=== PATIENT | female | born 1955 | race Caucasian/White ===

== ENCOUNTER → 2017-10-30 09:20 | Outpatient (CLI) | payer OTHER, SELFPAY ==
[2017-10-30 10:41] LABS: Absolute Lymphocyte Count 1.66 X10^3/ul (0.83-4.51); Absolute Neutrophil Count 2.4 X10^3/uL (2.0-7.7); Basophil# 0.02 X10^3/uL; Basophil% 0.4 % (0-1); Eosinophil# 0.05 X10^3/uL; Eosinophils% 1.1 % (0-5); Hemoglobin 13.5 g/dl (12.0-15.0); Lymphocyte # 1.66 X10^3/ul (4.0); Lymphocyte % 36.2 % (19-41); Mean Corp Hgb Conc 33.8 g/gl (32-36); Mean Corpuscular Hgb 31.3 pg (27.0-32.0); Mean Corpuscular Volume 92.6 fL (81-99); Mean Platelet Vol. 10.7 fl (6.2-12.0); Monocyte# 0.46 X10^3/uL; Neutrophil # 2.39 X10^3/uL (2.7-7.7); Neutrophil % 52.3 % (47-70); Platelet Count 157 K/mm3 (150-450); RBC Distribution Width CV 12.6 % (11.6-14.6); RBC Distribution Width SD 42.1 fl (35.1-43.9); Red Blood Count 4.32 M/mm3 (4.2-5.4); White Blood Count 4.6 K/mm3 (4.4-11.0)
[2017-10-30 10:42] LABS: POSITIVE COUNT NO; POSITIVE DIFFERENTIAL NO; POSITIVE MORPHOLOGY NO
[2017-10-30 11:02] LABS: ALB/GLOB Ratio 1.3 RATIO (0.9-2.4); AST(SGOT) 20 U/L (15-37); Alanine Aminotransfer ALT/SGPT 24 U/L (13-56); Albumin, Serum 3.8 g/dL (3.2-5.0); Alkaline Phosphatase 77 U/L (45-117); Anion Gap 7 (5-15); BUN 14 mg/dL (7-18); BUN/Creat Ratio 22.1 RATIO (10-20); Calcium,Total 8.8 mg/dL (8.5-10.1); Chloride 108 mmol/L (98-107); Creatinine, Serum 0.63 mg/dL (0.55-1.02); EST Glomerular Filtration Rate 100 mL/min (>60); Est Glom Filt Rate - Afr Amer 121 mL/min (>60); Glucose 84 mg/dL (74-106); Potassium 3.7 mmol/L (3.5-5.1); Protein, Total 6.8 g/dL (6.4-8.2); Sodium Level 143 mmol/L (136-145)
== END ==
PROVIDERS: Family Provider Family Medicine; PCP Family Medicine; Visit Provider Internal Medicine Rheumatology
DX: M06.4 Inflammatory polyarthropathy (principal); M19.072 Primary osteoarthritis, left ankle and foot; I10 Essential (primary) hypertension; E78.5 Hyperlipidemia, unspecified; Z79.899 Other long term (current) drug therapy
CPT/HCPCS: 36415; 80053; 85025

== ENCOUNTER → 2018-01-28 15:41 | Outpatient (CLI) | payer MEDICARE, OTHER, SELFPAY ==
[2018-01-28 17:31] LABS: Absolute Lymphocyte Count 2.28 X10^3/ul (0.83-4.51); Absolute Neutrophil Count 3.4 X10^3/uL (2.0-7.7); Basophil# 0.01 X10^3/uL; Basophil% 0.2 % (0-1); Eosinophil# 0.05 X10^3/uL; Eosinophils% 0.8 % (0-5); Hematocrit 39.5 % (37-47); Hemoglobin 13.5 g/dl (12.0-15.0); Lymphocyte # 2.28 X10^3/ul (4.0); Lymphocyte % 36.8 % (19-41); Mean Corp Hgb Conc 34.2 g/gl (32-36); Mean Corpuscular Hgb 31.7 pg (27.0-32.0); Mean Corpuscular Volume 92.7 fL (81-99); Mean Platelet Vol. 10.7 fl (6.2-12.0); Monocyte% 8.1 % (0-10); Neutrophil # 3.36 X10^3/uL (2.7-7.7); Neutrophil % 54.1 % (47-70); Platelet Count 181 K/mm3 (150-450); RBC Distribution Width CV 12.8 % (11.6-14.6); RBC Distribution Width SD 42.6 fl (35.1-43.9); Red Blood Count 4.26 M/mm3 (4.2-5.4); White Blood Count 6.2 K/mm3 (4.4-11.0)
[2018-01-28 17:38] LABS: ALB/GLOB Ratio 1.2 RATIO (0.9-2.4); AST(SGOT) 19 U/L (15-37); Alanine Aminotransfer ALT/SGPT 25 U/L (13-56); Albumin, Serum 3.8 g/dL (3.2-5.0); Alkaline Phosphatase 77 U/L (45-117); Anion Gap 6 (5-15); BUN 12 mg/dL (7-18); BUN/Creat Ratio 17.5 RATIO (10-20); Calcium,Total 9.1 mg/dL (8.5-10.1); Chloride 107 mmol/L (98-107); Creatinine, Serum 0.69 mg/dL (0.55-1.02); EST Glomerular Filtration Rate 91 mL/min (>60); Est Glom Filt Rate - Afr Amer 110 mL/min (>60); Globulin 3.3 g/dL (2.2-4.2); Glucose 83 mg/dL (74-106); Potassium 3.2 mmol/L (3.5-5.1); Protein, Total 7.1 g/dL (6.4-8.2); Sodium Level 144 mmol/L (136-145)
[2018-01-28 17:40] LABS: POSITIVE COUNT NO; POSITIVE DIFFERENTIAL NO; POSITIVE MORPHOLOGY NO
== END ==
PROVIDERS: Family Provider Family Medicine; PCP Family Medicine; Visit Provider Internal Medicine Rheumatology
DX: M06.4 Inflammatory polyarthropathy (principal); M19.072 Primary osteoarthritis, left ankle and foot; I10 Essential (primary) hypertension; E78.5 Hyperlipidemia, unspecified; Z79.899 Other long term (current) drug therapy
CPT/HCPCS: 36415; 80053; 85025

== ENCOUNTER → 2018-04-13 10:22 | Outpatient (CLI) | payer MEDICARE, OTHER, SELFPAY ==
--- NOTE | 2018-04-13 10:25 | CT_ITS ---
Study: CT of the left lower extremity with contrast CLINICAL HISTORY: Lateral left lower leg mass Prior study: None. PROCEDURE: Multiple computed tomographic images of the left lower extremity were obtained at 2.5 mm intervals using contiguous 2.5 mm thick slices in axial projection. Coronal and sagittal reconstructions were obtained. Radiation dose: Total exam DLP: 798.94 FINDINGS: No soft tissue mass of the left lower leg was identified. Muscular fascial planes are preserved. Subcutaneous soft tissues are unremarkable. There is no evidence of hematoma or cystic lesion. The left tibia and fibula appear within normal limits. CT/Extremity Lower WITH Contrast IMPRESSION: No soft tissue mass was identified. If clinically indicated, MRI may be helpful for further evaluation. Electronically Signed: Shiraz Lilly MD at 20:12 EDT , Service support ,
[2018-04-13 10:35] LABS: CREATININE FINGERSTICK 0.6 mg/dL (0.55-1.02); EGFR FINGERSTICK > 60.0000 mL/min (>60)
== END ==
PROVIDERS: Family Provider Family Medicine; PCP Family Medicine; Referring Provider Family Medicine; Visit Provider Family Medicine
DX: R22.42 Localized swelling, mass and lump, left lower limb (principal)
CPT/HCPCS: 73701; Q9967

== ENCOUNTER → 2018-05-05 13:29 | Outpatient (CLI) | payer MEDICARE, OTHER, SELFPAY ==
[2018-05-05 14:19] LABS: Absolute Lymphocyte Count 1.95 X10^3/ul (0.83-4.51); Absolute Neutrophil Count 3.7 X10^3/uL (2.0-7.7); Basophil# 0.02 X10^3/uL; Basophil% 0.3 % (0-1); Eosinophil# 0.07 X10^3/uL; Eosinophils% 1.1 % (0-5); Hematocrit 41.7 % (37-47); Hemoglobin 14.7 g/dl (12.0-15.0); Lymphocyte # 1.95 X10^3/ul (4.0); Lymphocyte % 31.6 % (19-41); Mean Corp Hgb Conc 35.3 g/gl (32-36); Mean Corpuscular Hgb 32.5 pg (27.0-32.0); Mean Corpuscular Volume 92.3 fL (81-99); Mean Platelet Vol. 10.7 fl (6.2-12.0); Monocyte# 0.47 X10^3/uL; Monocyte% 7.6 % (0-10); Neutrophil # 3.65 X10^3/uL (2.7-7.7); Neutrophil % 59.2 % (47-70); Platelet Count 185 K/mm3 (150-450); RBC Distribution Width CV 12.3 % (11.6-14.6); RBC Distribution Width SD 40.7 fl (35.1-43.9); Red Blood Count 4.52 M/mm3 (4.2-5.4); White Blood Count 6.2 K/mm3 (4.4-11.0)
[2018-05-05 14:23] LABS: POSITIVE COUNT NO; POSITIVE DIFFERENTIAL NO; POSITIVE MORPHOLOGY NO
[2018-05-05 14:28] LABS: ALB/GLOB Ratio 1.1 RATIO (0.9-2.4); AST(SGOT) 19 U/L (15-37); Alanine Aminotransfer ALT/SGPT 25 U/L (13-56); Albumin, Serum 3.9 g/dL (3.2-5.0); Alkaline Phosphatase 75 U/L (45-117); Anion Gap 5 (5-15); BUN 11 mg/dL (7-18); BUN/Creat Ratio 17.2 RATIO (10-20); Calcium,Total 8.9 mg/dL (8.5-10.1); Chloride 104 mmol/L (98-107); Creatinine, Serum 0.64 mg/dL (0.55-1.02); EST Glomerular Filtration Rate 99 mL/min (>60); Est Glom Filt Rate - Afr Amer 120 mL/min (>60); Globulin 3.5 g/dL (2.2-4.2); Glucose 91 mg/dL (74-106); Potassium 3.4 mmol/L (3.5-5.1); Protein, Total 7.4 g/dL (6.4-8.2); Sodium Level 140 mmol/L (136-145)
== END ==
PROVIDERS: Family Provider Family Medicine; PCP Family Medicine; Referring Provider Internal Medicine Rheumatology; Visit Provider Internal Medicine Rheumatology
DX: M06.4 Inflammatory polyarthropathy (principal); M19.072 Primary osteoarthritis, left ankle and foot; I10 Essential (primary) hypertension; E78.5 Hyperlipidemia, unspecified; Z79.899 Other long term (current) drug therapy
CPT/HCPCS: 36415; 80053; 85025

== ENCOUNTER → 2018-08-05 15:37 | Outpatient (CLI) | payer MEDICARE, OTHER, SELFPAY ==
[2018-08-05 17:15] LABS: Absolute Lymphocyte Count 2.32 X10^3/ul (0.83-4.51); Absolute Neutrophil Count 3.2 X10^3/uL (2.0-7.7); Basophil# 0.02 X10^3/uL; Basophil% 0.3 % (0-1); Eosinophil# 0.05 X10^3/uL; Eosinophils% 0.8 % (0-5); Hemoglobin 13.8 g/dl (12.0-15.0); Lymphocyte # 2.32 X10^3/ul (4.0); Lymphocyte % 37.4 % (19-41); Mean Corp Hgb Conc 34.5 g/gl (32-36); Mean Corpuscular Volume 92.8 fL (81-99); Mean Platelet Vol. 10.8 fl (6.2-12.0); Monocyte# 0.62 X10^3/uL; Neutrophil % 51.5 % (47-70); POSITIVE COUNT NO; POSITIVE DIFFERENTIAL NO; POSITIVE MORPHOLOGY NO; Platelet Count 187 K/mm3 (150-450); RBC Distribution Width CV 12.3 % (11.6-14.6); RBC Distribution Width SD 41.3 fl (35.1-43.9); Red Blood Count 4.31 M/mm3 (4.2-5.4); White Blood Count 6.2 K/mm3 (4.4-11.0)
[2018-08-05 17:27] LABS: ALB/GLOB Ratio 1.2 RATIO (0.9-2.4); AST(SGOT) 18 U/L (15-37); Alanine Aminotransfer ALT/SGPT 21 U/L (13-56); Albumin, Serum 3.8 g/dL (3.2-5.0); Alkaline Phosphatase 77 U/L (45-117); Anion Gap 10 (5-15); BUN 16 mg/dL (7-18); BUN/Creat Ratio 16.5 RATIO (10-20); Calcium,Total 8.9 mg/dL (8.5-10.1); Chloride 106 mmol/L (98-107); Creatinine, Serum 0.97 mg/dL (0.55-1.02); EST Glomerular Filtration Rate 61 mL/min (>60); Est Glom Filt Rate - Afr Amer 74 mL/min (>60); Globulin 3.2 g/dL (2.2-4.2); Glucose 89 mg/dL (74-106); Potassium 3.5 mmol/L (3.5-5.1); Sodium Level 143 mmol/L (136-145)
== END ==
PROVIDERS: Family Provider Family Medicine; PCP Family Medicine; Referring Provider Internal Medicine Rheumatology; Visit Provider Internal Medicine Rheumatology
DX: M06.4 Inflammatory polyarthropathy (principal); M19.072 Primary osteoarthritis, left ankle and foot; I10 Essential (primary) hypertension; E78.5 Hyperlipidemia, unspecified; Z79.899 Other long term (current) drug therapy
CPT/HCPCS: 36415; 80053; 85025

== ENCOUNTER → 2018-11-04 13:51 | Outpatient (CLI) | payer MEDICARE, OTHER, SELFPAY ==
[2018-11-04 16:04] LABS: Absolute Neutrophil Count 3.6 X10^3/uL (2.0-7.7); Basophil# 0.02 X10^3/uL; Basophil% 0.3 % (0-1); Eosinophil# 0.05 X10^3/uL; Eosinophils% 0.8 % (0-5); Hematocrit 41.4 % (37-47); Hemoglobin 14.3 g/dl (12.0-15.0); Lymphocyte % 36.5 % (19-41); Mean Corp Hgb Conc 34.5 g/gl (32-36); Mean Corpuscular Hgb 32.1 pg (27.0-32.0); Mean Platelet Vol. 10.6 fl (6.2-12.0); Monocyte# 0.45 X10^3/uL; Monocyte% 6.8 % (0-10); Neutrophil # 3.64 X10^3/uL (2.7-7.7); Neutrophil % 55.4 % (47-70); Platelet Count 195 K/mm3 (150-450); RBC Distribution Width CV 12.9 % (11.6-14.6); RBC Distribution Width SD 43.4 fl (35.1-43.9); Red Blood Count 4.45 M/mm3 (4.2-5.4); White Blood Count 6.6 K/mm3 (4.4-11.0)
[2018-11-04 16:08] LABS: POSITIVE COUNT NO; POSITIVE DIFFERENTIAL NO; POSITIVE MORPHOLOGY NO
[2018-11-04 16:22] LABS: ALB/GLOB Ratio 1.2 RATIO (0.9-2.4); AST(SGOT) 21 U/L (15-37); Alanine Aminotransfer ALT/SGPT 31 U/L (13-56); Alkaline Phosphatase 84 U/L (45-117); Anion Gap 5 (5-15); BUN 13 mg/dL (7-18); BUN/Creat Ratio 16.5 RATIO (10-20); Calcium,Total 8.7 mg/dL (8.5-10.1); Chloride 107 mmol/L (98-107); Creatinine, Serum 0.79 mg/dL (0.55-1.02); EST Glomerular Filtration Rate 78 mL/min (>60); Est Glom Filt Rate - Afr Amer 94 mL/min (>60); Globulin 3.2 g/dL (2.2-4.2); Glucose 76 mg/dL (74-106); Potassium 3.3 mmol/L (3.5-5.1); Protein, Total 7.2 g/dL (6.4-8.2); Sodium Level 141 mmol/L (136-145)
== END ==
PROVIDERS: Family Provider Family Medicine; PCP Family Medicine; Referring Provider Internal Medicine Rheumatology; Visit Provider Internal Medicine Rheumatology
DX: M06.4 Inflammatory polyarthropathy (principal); M19.072 Primary osteoarthritis, left ankle and foot; I10 Essential (primary) hypertension; E78.5 Hyperlipidemia, unspecified; Z79.899 Other long term (current) drug therapy
CPT/HCPCS: 36415; 80053; 85025

== ENCOUNTER 2019-01-02 17:55 | Observation (INO) | payer MEDICARE, OTHER, SELFPAY ==
[2019-01-02] VITALS (12 sets, daily range): BP systolic 150–189; BP diastolic 72–107; PULSE 58–71; RESP 13–16; TEMP 36.6–36.7; O2SAT 98–100; BMI 26.6; BMI 27.6
--- NOTE | 2019-01-02 18:26 | CT_ITS ---
STUDY: CT BRAIN WITHOUT CONTRAST REASON FOR EXAM: Female, 63 years old. Confusion RADIATION DOSAGE (If Supplied By Facility): CTDIvol = ( 44.99 ) mGy, DLP = ( 863.60 ) mGycm TECHNIQUE: Transaxial CT imaging of the brain was performed without administration of intravenous contrast material. Individualized dose optimization techniques were used for this CT. COMPARISON: No relevant priors. FINDINGS: Normal soft tissue structures. Normal calvarium. There is mild ventricular asymmetry likely normal developmental variant. Mild periventricular white matter ischemic changes.. Normal basal ganglia and thalami. Normal brainstem. Normal cerebellum. Empty sella deformity likely of no significance There is no intracranial hemorrhage. There are no findings of an acute ischemic infarction. Small mucous retention cyst in left maxillary sinus. CT/Brain/Head without Contrast IMPRESSION: Mild periventricular white matter ischemic change. No evidence for acute bleed. If concern for acute infarct MRI recommended.. Electronically Signed: Enoc Li MD at 18:43 EDT , Service support ,
--- NOTE | 2019-01-02 18:27 | EKG12_ITS ---
Test Reason : Blood Pressure : / mmHG Vent. Rate : 063 BPM Atrial Rate : 063 BPM P-R Int : 134 ms QRS Dur : 092 ms QT Int : 426 ms P-R-T Axes : 033 032 060 degrees QTc Int : 435 ms Normal sinus rhythm Normal ECG Confirmed by MARCE ACEVES, ERUM ([id number]), film editor supervisor MARINO WETZEL ([id number]) on 01/04/2019 12:20:48 PM Referred By: KATI Confirmed By:ERUM ZHENG MD
[2019-01-02 18:46] LABS: Absolute Lymphocyte Count 3.21 X10^3/ul (0.83-4.51); Basophil# 0.02 X10^3/uL; Basophil% 0.3 % (0-1); Eosinophil# 0.06 X10^3/uL; Eosinophils% 0.8 % (0-5); Hematocrit 39.9 % (37-47); Hemoglobin 14.4 g/dl (12.0-15.0); Lymphocyte # 3.21 X10^3/ul (4.0); Lymphocyte % 40.6 % (19-41); Mean Corp Hgb Conc 36.1 g/gl (32-36); Mean Corpuscular Hgb 32.4 pg (27.0-32.0); Mean Corpuscular Volume 89.9 fL (81-99); Mean Platelet Vol. 10.9 fl (6.2-12.0); Monocyte# 0.61 X10^3/uL; Monocyte% 7.7 % (0-10); Neutrophil % 50.5 % (47-70); POSITIVE COUNT NO; POSITIVE DIFFERENTIAL NO; POSITIVE MORPHOLOGY NO; Platelet Count 185 K/mm3 (150-450); RBC Distribution Width CV 12.2 % (11.6-14.6); RBC Distribution Width SD 38.9 fl (35.1-43.9); Red Blood Count 4.44 M/mm3 (4.2-5.4); White Blood Count 7.9 K/mm3 (4.4-11.0)
[2019-01-02 18:51] LABS: Anion Gap 9 (5-15); BUN 12 mg/dL (7-18); BUN/Creat Ratio 14.3 RATIO (10-20); Calcium,Total 9.7 mg/dL (8.5-10.1); Chloride 106 mmol/L (98-107); Creatinine, Serum 0.84 mg/dL (0.55-1.02); EST Glomerular Filtration Rate 72 mL/min (>60); Est Glom Filt Rate - Afr Amer 87 mL/min (>60); Estimated Creatinine Clearance 64.93 ml/min; Glucose 100 mg/dL (74-106); Sodium Level 139 mmol/L (136-145)
[2019-01-02 19:20] LABS: International Normalized Ratio 1.1; Prothrombin Time (Protime)PT. 13.5 SECONDS (11.7-14.9)
[2019-01-02 19:21] LABS: Partial Thromboplast Time 25.2 Seconds (24.1-36.2)
--- NOTE | 2019-01-02 20:00 | ED.DCSUM_ITS ---
- ER Visit Summary Date of Service: 01/02/19 Chief Complaint: [Confusion] History of Present Illness: The patient is a 63 F [since the emergency department with complaint of amnesia that occurred starting around 440 4:55 PM tonight. The patient and her took their dog to the dough molder because he was sick and the dog ended up dying. About 15 minutes after his when the was noted to be confused and lost track of the entire day per . Patient denies any headache. She denies chest pain. Denies shortness of breath. Patient otherwise has no complaints and is not had symptoms like this before. Past medical history significant for hypertension, high cholesterol, cellulitis. Surgical history includes hysterectomy.] Physical Examination: [HEENT-PERRLA, EOMI. Cranial nerves II through XII grossly intact. TMs clear. Mucous membranes moist. No adenopathy. Cardiovascular-regular rate and rhythm without murmur or ectopy Lungs-clear to auscultation, chest wall stable without crepitus or subcu emphysema Abdomen-normoactive bowel sounds, soft, nontender, no rebound or rigidity, no peritoneal signs. Neuro yawm-gmrfvt-md-nose and agnn-ji-hcpz testing within normal limits, negative Romberg, negative , Fundi benign. NIH stroke scale was 0. Extremities-intact ?4, normal range of motion, normal pulses, atraumatic] Test Results: [CBC with differential is normal. Chemistries were unremarkable. Troponin less than 0.015. CT scan of the brain without contrast showed small vessel ischemic changes otherwise nothing acute.] Emergency Department Course and Treatment: [Patient case was discussed with neurologist on-call Dr. Torres requested we admit patient for further stroke work-up although this is possibly global amnesia related to stress.] Patient is not a thrombolytic candidate. Treatment Plan: [Admit for further work-up and evaluation.] Disposition: [Admit] Impression: [Effusion/amnesia-etiology uncertain] This note was generated with [employer] dictation software. It may contain incorrect words, spelling, and punctuation that were not noted in review of the chart prior to signing ED Disposition - Plan for ED Patient: Referrals: Fadumo Ruth MD [Primary Care Provider] -
--- NOTE | 2019-01-02 20:08 | PCM.HP.STD ---
Problem List (1) Amnesia, global, transient Status: Acute (2) HTN (hypertension) Status: Chronic (3) Dyslipidemia Status: Chronic (4) Cellulitis and abscess of foot Status: Inactive History of Present Illness Date of Admission: 01/02/19 Chief Complaint: forgetfulness The patient is a 63 year old F with a significant history of hypertension; hyperlipidemia who presented to the emergency department with forgetfulness that started about 2 hours prior to presentation. Associated with his symptoms is lightheadedness. Patient and her took their dog to the veterinary where their dog . After the dog and while at a veterinary's office patient's symptoms started. Patient kept asking repeatedly where she was. Emergency department doctor discussed the case with neurology who felt the patient should be observed overnight. Past Medical History Past Medical History (Chronic Problems): Chronic Problems HTN (hypertension) (Chronic) Dyslipidemia (Chronic) Allergies bacitracin [From Neosporin ([id number])] Allergy (Verified 01/11/15 09:01) Swelling bacitracin zinc [From Neosporin (rhn-[id number])] Allergy (Verified 01/11/15 09:01) Swelling clindamycin Allergy (Verified 01/11/15 09:01) Rash neomycin sulfate [From Neosporin ([id number])] Allergy (Verified 01/11/15 09:01) Swelling polymyxin B [From Neosporin ([id number])] Allergy (Verified 01/11/15 09:01) Swelling Home Medications: Ambulatory Orders Medication Instructions Recorded Simvastatin [Zocor] 20 mg PO QHS 01/11/15 Aspirin [Adult Low Dose Aspirin EC] 81 mg PO DAILY 01/02/19 Folic Acid 1 mg PO DAILY 01/02/19 Fosinopril Sodium 40 mg PO DAILY 01/02/19 Hydrochlorothiazide 12.5 mg PO DAILY 01/02/19 Methotrexate Sodium [Methotrexate] 15 mg PO WE 01/02/19 Vitamin B Complex 01/02/19 Surgical History: hysterectomy Lives: Spouse/ Significant Other Smoking Status: Never smoker Alcohol: None - *Family History Paternal History Items: Cancer - Pancreatic, Heart Disease - Arrhythmia, - - Rheumatoid arthritis Maternal History Items: Hypertension, Stroke Review of Systems Constitutional: Denies: Chills, Fever, Weight Change HEENT: Denies: Head Aches, Sinus Congestion, Sinus Drainage Cardiovascular: Reports: Light Headedness. Denies: Chest Pain, Palpitations Respiratory: Denies: Cough, Shortness of breath at rest, Sputum production Gastrointestinal: Denies: Abdominal Pain, Nausea, Vomiting Genitourinary: Denies: Dysuria Musculoskeletal: Denies: Joint Pain, Joint Tenderness Skin: Denies: Rash, Wounds Neurological: Denies: Numbness, Tingling, Focal weakness Psychiatric: Denies: Anxiety, Depression, Homicidal Ideations, Suicidal Ideations Hematologic/ Lymphatic: Denies: Easy Bruising, Easy Bleeding VTE Information - Inpt Only VTE Present on Admission: No VTE Mechan Device Prophylaxis: None VTE Pharm Prophylaxis ordered?: Yes Patient Problems: Active and Suspected Problems Amnesia, global, transient (Acute) - Physical Exam General: Alert, Cooperative, - - Oriented to the year but not to the month or the day HEENT: Atraumatic, PERRLA, EOMI, Normocephalic Neck: Supple, No JVD, Negative Carotid Bruits Lungs: Clear to auscultation, Normal air movement Cardiovascular: Regular rate, No murmurs Abdomen: Bowel Sounds Present, Soft, Non Tender Extremities: No edema, Capillary Refill Less than 3 Seconds Skin: No rashes, No breakdown Musculoskeletal: No Tenderness to Palpation of Joints or Extremities Neurological: Cranial nerves II-XII grossly intact, Motor Exam 5/5 strength throughout, - - Deep tendon reflexes 2/2 throughout. There was no dysmetria. Psych/Mental Status: Normal Affect, Appropriate Vital Signs Temp Pulse Resp BP Pulse Ox 97.9 F 62 15 183/75 H 99 01/02/19 17:56 01/02/19 19:27 01/02/19 19:27 01/02/19 19:27 01/02/19 19:27 Oxygen Delivery Method Room Air Weight: 77.111 kg Body Mass Index (BMI) 26.6 Finger Stick Blood Glucose 100 Laboratory Tests Past 24 Hrs 01/02/19 01/02/19 01/02/19 18:24 18:24 18:24 WBC 7.9 RBC 4.44 Hgb 14.4 Hct 39.9 MCV 89.9 MCH 32.4 H MCHC 36.1 H RDW 12.2 RDW Differential 38.9 Plt Count 185 MPV 10.9 Immature Gran % (Auto) 0.100 Neut % (Auto) 50.5 Lymph % (Auto) 40.6 [place] % (Auto) 7.7 Eos % (Auto) 0.8 Baso % (Auto) 0.3 Absolute Neuts (auto) 4.0 Absolute Lymphs (auto) 3.21 Total Counted Not Reportable PT Cancelled INR Cancelled APTT Cancelled Sodium 139 Potassium 4.0 Chloride 106 Carbon Dioxide 24.0 Anion Gap 9 BUN 12 Creatinine 0.84 Estim Creat Clear Calc 64.93 Est GFR (MDRD) Af Amer 87 Est GFR (MDRD) Non-Af 72 BUN/Creatinine Ratio 14.3 Glucose 100 Calcium 9.7 01/02/19 18:55 WBC RBC Hgb Hct MCV MCH MCHC RDW RDW Differential Plt Count MPV Immature Gran % (Auto) Neut % (Auto) Lymph % (Auto) [place] % (Auto) Eos % (Auto) Baso % (Auto) Absolute Neuts (auto) Absolute Lymphs (auto) Total Counted PT 13.5 INR 1.1 APTT 25.2 Sodium Potassium Chloride Carbon Dioxide Anion Gap BUN Creatinine Estim Creat Clear Calc Est GFR (MDRD) Af Amer Est GFR (MDRD) Non-Af BUN/Creatinine Ratio Glucose Calcium Assessment/Plan All Active Problems Amnesia, global, transient (Acute) The patient is a 63 year old F with a significant history of hypertension; hyperlipidemia who presented to the emergency department with forgetfulness and lightheadedness after losing a dark bath with retained of some of her memory while at the emergency department consistent with likely a transient global amnesia. Transient global amnesia Most likely from acute stress response. NINDS NIH Scale was 1 (patient did not know the month) CT of the head showed mild periventricular white matter ischemic change. No evidence of acute bleed. -Check Hba1c, Lipid level Physical therapy, occupational therapy to work with patient. N.p.o. until bedside swallow eval. Home statin continued Permissive hypertension. Control blood pressure with labetalol for systolic blood pressure of more than 220 or diastolic blood pressure of more than 120. -Permissive HTN for 24 hrs. MRI/MRA of head; brain; and neck. Echocardiogram ordered. Because CVA/TIA is the second likley diagnosis and it is not within 24 hours ASA was not ordered Hypertension On presentation her blood pressure was not within goal. Because of permissive hypertension we will hold ADITI inhibitors and hydrochlorothiazide that patient takes at home. Trend blood pressures Hyperlipidemia Check lipid level left Continue home Zocor. Rheumatoid arthritis Methotrexate with folic acid continued. DVT Prophylaxis Subcutaneous Lovenox Code Visit OBSV E&M: 28158 Initial observation care L3
--- NOTE | 2019-01-02 20:10 | ED.DCSUM_ITS ---
- ER Visit Summary Date of Service: 01/02/19 Chief Complaint: [Addendum to initial dictation] History of Present Illness: The patient is a 63 F [] Physical Examination: [] Test Results: [] Emergency Department Course and Treatment: [] Treatment Plan: [] Disposition: [] Impression: [Impression should read confusion/amnesia] This note was generated with [employer] dictation software. It may contain incorrect words, spelling, and punctuation that were not noted in review of the chart prior to signing ED Disposition - Plan for ED Patient: Referrals: Fadumo Ruth MD [Primary Care Provider] -
--- NOTE | 2019-01-02 21:08 | ECHOD_ITS ---
Reason For Study: TIA/CVA Procedure This was a 2D Doppler, Color Flow transthoracic echocardiogram. The study was technically difficult. Exam performed portable in patient room. Left Ventricle Normal LV size. Left ventricular systolic function is normal. The estimated ejection fraction is 65 %. Diastolic function is indeterminate. No regional wall motion abnormalities noted. Right Ventricle Normal RV size. Normal systolic function. Atria The left atrium is mildly enlarged. Normal right atrium. No doppler evidence for ASD. Bubble contrast study negative for right to left interatrial shunt. Mitral Valve There is moderate to severe mitral annular calcification. Extension of the mitral annular calcification onto the posterior mitral valve leaflet. Mild (1+) eccentric mitral valve insufficiency. Tricuspid Valve Normal tricuspid valve. Mild to moderate (1-2+) tricuspid valve insufficiency. Right ventricular systolic pressure estimated to be 32 mmHg. Aortic Valve Trisinus/trileaflet aortic valve. Mild focal aortic valve thickening. Pulmonic Valve The pulmonic valve is not well visualized. Great Vessels Normal sized aortic root. Calcified aortic root. Pericardium/Pleural No pericardial effusion. Medication Performed a rapid injection of agitated mix of 9 cc saline and 1cc air to assess for atrial septal defect. MMode/2D Measurements & Calculations LVIDd: 4.5 cm IVSd: 1.1 cm Ao root diam: 2.6 cm LVIDs: 2.9 cm LVPWd: 0.86 cm RVDd: 3.0 cm FS: 35.8 % LAV(MOD-bp): 73.5 ml LA A4 area: 23.2 cm2 LA dimension(2D): 3.5 cm LAV(MOD-bp) Indexed: 38.4 ml/m2 LAV(MOD-sp2): 72.2 ml LAV(MOD-sp4): 73.5 ml RA A4 area: 18.5 cm2 Time Measurements MV dec time: 0.24 sec Doppler Measurements & Calculations MV E max [place]: 90.7 cm/sec Lat Peak E' [place]: 8.6 cm/sec Med Peak E' [place]: 7.3 cm/sec MV A max [place]: 77.5 cm/sec E/E' lat: 10.6 E/E' med: 12.4 MV E/A: 1.2 Ao V2 max: 148.1 cm/sec LV V1 max: 103.6 cm/sec PA V2 max: 73.2 cm/sec Ao max P.8 mmHg LV V1 max P.7 mmHg TR max [place]: 244.2 cm/sec TR max P.9 mmHg Interpretation Summary The study was technically difficult. Left ventricular systolic function is normal. The estimated ejection fraction is 65 %. The left atrium is mildly enlarged. There is moderate to severe mitral annular calcification. Extension of the mitral annular calcification onto the posterior mitral valve leaflet. Mild (1+) eccentric mitral valve insufficiency. Mild to moderate (1-2+) tricuspid valve insufficiency. Mild focal aortic valve thickening. Calcified aortic root. Right ventricular systolic pressure estimated to be 32 mmHg. Diastolic function is indeterminate. Ordering Physician: Urbano Butler Referring Physician: Fadumo Ruth Performed By: Khushi Dolan, MARLO, RVT
[2019-01-02] MEDS: Atorvastatin Calcium 20 MG Tablet PO (22:17)
[2019-01-02] MEDS: Acetaminophen 325 MG Tablet 650 MG PO (22:17)
[2019-01-03] VITALS (8 sets, daily range): BP systolic 125–158; BP diastolic 58–77; PULSE 50–61; RESP 12–18; TEMP 36.4–36.8; O2SAT 97–99
[2019-01-03] MEDS: Acetaminophen 325 MG Tablet 650 MG PO (05:26)
[2019-01-03 06:37] LABS: Cholesterol 184 mg/dL (200); High Density Lipoprotein 55 mg/dL; Triglycerides 92 mg/dL; Very Low Density Lipoprotein 18 mg/dL (5-40)
[2019-01-03] MEDS: Folic Acid 1 MG Tablet 2 MG PO (08:09)
[2019-01-03] MEDS: Enoxaparin 40 MG/0.4 ML Syringe SC (08:09)
--- NOTE | 2019-01-03 08:30 | MRI_ITS ---
STUDY: MRI BRAIN WITHOUT CONTRAST REASON FOR EXAM: Female, 63 years old. Episode of confusion. Rule out stroke. TECHNIQUE: Standardized multiplanar fat and water weighted pulse sequences were obtained. COMPARISON: CT head without contrast 01/02/2019. FINDINGS: No restricted diffusion to suspect acute or subacute ischemic infarct. Normal size of the ventricles and extra-axial spaces for the patient's age. Punctate and nodular T2 FLAIR hyperintensity foci in the white matter of both cerebral hemispheres are presumably chronic white matter ischemic changes. No midline shift and no mass effects. Normal bilateral basal ganglia. Normal thalami. There is no extra-axial fluid accumulation. Normal flow voids within the major intracranial circulation suggesting patency by spin echo criteria. Normal sella turcica, pituitary gland, infundibular stalk, optic chiasm and hypothalamus. Normal tectal plate and pineal gland. Normal midbrain, avtar and medulla. Normal cerebellum. Normal basal cisterns. Normal bilateral temporal bones. Normal bilateral internal auditory canals. No demonstrated orbital abnormality, within the constraints of a routine brain study. Normal visualized paranasal sinuses. Normal calvarium and skull base. Normal visualized soft tissue structures. Normal visualized upper cervical spine. MRI/Brain without Contrast IMPRESSION: 1. No MRI evidence of acute or subacute ischemic infarct. 2. No MRI evidence of remote cortical-based ischemic infarct or old lacunar infarcts. 3. Chronic white matter ischemic changes in both cerebral hemispheres. Electronically Signed: George Baptiste MD at 11:01 EDT , Service support ,
--- NOTE | 2019-01-03 08:30 | MRI_ITS ---
STUDY: MRA OF THE HEAD WITHOUT CONTRAST REASON FOR EXAM: Female, 63 years old. Episode of confusion. Rule out stroke. TECHNIQUE: 3-D jxse-jy-qziegn (TOF) imaging was performed with MIPs. The study was performed unenhanced. COMPARISON: None. FINDINGS: Normal bilateral petrous carotid arteries. Normal right cavernous carotid artery with a normal supraclinoid bifurcation. Normal left cavernous carotid artery with a normal supraclinoid bifurcation. Normal right A1 segment of the anterior cerebral artery. Normal left A1 segment of the anterior cerebral artery. Normal intact anterior communicating artery (ACOM). Normal bilateral A2 segments of the anterior cerebral arteries. Normal right M1 and M2 segments of the middle cerebral arteries, with a normal M1 bifurcation. Normal left M1 and M2 segments of the middle cerebral arteries, with a normal M1 bifurcation. No visible right posterior communicating artery (PCOM). origin of the left QUALITY AUDIT REPRESENTATIVE off the left internal carotid artery rather than a widely patent left posterior communicating artery. This accounts for the relatively absent left P1 segment. Normal bilateral vertebral arteries. Normal basilar artery with a normal basilar bifurcation. The visualized bilateral superior cerebellar (SCA) arteries are normal. Normal right P1, bilateral P2 and visualized P3 segments of the posterior cerebral arteries. There is no demonstrated aneurysm of the [place]. There is no major vessel occlusion or hemodynamically significant stenosis. MRI/MRA Head ONLY without Contrast IMPRESSION: Normal MRA of the head Electronically Signed: George Baptiste MD at 11:03 EDT , Service support ,
--- NOTE | 2019-01-03 08:30 | MRI_ITS ---
STUDY: MRA NECK WITH AND WITHOUT CONTRAST REASON FOR EXAM: Female, 63 years old. Episode and confusion. Rule out stroke. TECHNIQUE: 3-D udqd-yr-euxdmk (TOF) imaging was performed in an 1.5 T MRI scanner. 15 IV Dotarem was administered for the contrast enhanced images. COMPARISON: None. FINDINGS: RIGHT CAROTID ARTERIES: Normal right common carotid artery (CCA). Normal right internal carotid bulb. Normal origin of the right internal carotid (ICA) artery without a hemodynamically significant stenosis. Normal visualized cervical portion of the right internal carotid artery. Normal origin of the right external carotid artery (ECA). LEFT CAROTID ARTERIES: Normal left common carotid artery (CCA). Normal left internal carotid bulb. Normal origin of the left internal carotid (ICA) artery without a hemodynamically significant stenosis. Normal visualized cervical portion of the left internal carotid artery. Normal origin of the left external carotid artery (ECA). VERTEBRAL ARTERIES: Normal antegrade flow within the bilateral vertebral artery without a hemodynamically significant stenosis. AORTIC ARCH: Widely patent aortic arch and origins of the great vessels. MRI/MRA Neck WITH and W/O Contrast IMPRESSION: 1. Normal MRA of both carotid arteries and vertebral arteries. 2. Normal aortic arch and origins of the great vessels. Electronically Signed: George Baptiste MD at 11:05 EDT , Service support ,
--- NOTE | 2019-01-03 09:04 | PCM.PROGNOTE ---
Subjective: The patient is a 63-year-old female with a past medical history of hypertension and hyperlipidemia who presented to the ED at [facility] on 01/02/2019 complaining of forgetfulness that started 2 hours prior to presentation. she and her had taken their dog to the vet and the dog . Sx started after the dog . Vital signs at presentation to the emergency department were temperature 97.9, pulse rate 71, blood pressure 189/86, respiratory rate 15 and she was 100% saturated on room air. CBC was unremarkable. BMP was unremarkable. A noncontrasted CT brain showed mild periventricular white matter ischemic change with no evidence for acute bleed or acute infarct. She was admitted to a monitored bed on PCU and MRI was ordered for the following morning. Stroke protocol/neurochecks were ordered. - Physical Exam General: Alert, No apparent distress HEENT: Normocephalic Neck: Supple, No JVD, Trachea Midline Lungs: Clear to auscultation Cardiovascular: Regular rate, Regular Rhythm, Normal S1, Normal S2, No Gallop Abdomen: Bowel Sounds Present, Soft, Non Tender, Non-Distended Neurological: Cranial nerves II-XII grossly intact, Neuro grossly intact Psych/Mental Status: Normal Affect, Appropriate Vital Signs Temp Pulse Resp BP Pulse Ox 97.5 F L 54 L 16 125/61 H 97 01/03/19 05:15 01/03/19 07:00 01/03/19 05:15 01/03/19 05:15 01/03/19 07:23 Oxygen Delivery Method Room Air Weight: 176 lb 5.917 oz Body Mass Index (BMI) 27.6 Finger Stick Blood Glucose 100 Intake and Output for Last 24 Hours 01/01/19 01/02/19 01/03/19 23:59 23:59 23:59 Intake Total 240 / 240 240 / 240 Balance 240 / 240 240 / 240 Laboratory Tests Past 24 Hrs 01/02/19 01/02/19 01/02/19 18:24 18:24 18:24 WBC 7.9 RBC 4.44 Hgb 14.4 Hct 39.9 MCV 89.9 MCH 32.4 H MCHC 36.1 H RDW 12.2 RDW Differential 38.9 Plt Count 185 MPV 10.9 Immature Gran % (Auto) 0.100 Neut % (Auto) 50.5 Lymph % (Auto) 40.6 [place] % (Auto) 7.7 Eos % (Auto) 0.8 Baso % (Auto) 0.3 Absolute Neuts (auto) 4.0 Absolute Lymphs (auto) 3.21 Total Counted Not Reportable PT Cancelled INR Cancelled APTT Cancelled Sodium 139 Potassium 4.0 Chloride 106 Carbon Dioxide 24.0 Anion Gap 9 BUN 12 Creatinine 0.84 Estim Creat Clear Calc 64.93 Est GFR (MDRD) Af Amer 87 Est GFR (MDRD) Non-Af 72 BUN/Creatinine Ratio 14.3 Glucose 100 Calcium 9.7 Triglycerides Cholesterol LDL Cholesterol VLDL Cholesterol HDL Cholesterol 01/02/19 01/03/19 18:55 05:44 WBC RBC Hgb Hct MCV MCH MCHC RDW RDW Differential Plt Count MPV Immature Gran % (Auto) Neut % (Auto) Lymph % (Auto) [place] % (Auto) Eos % (Auto) Baso % (Auto) Absolute Neuts (auto) Absolute Lymphs (auto) Total Counted PT 13.5 INR 1.1 APTT 25.2 Sodium Potassium Chloride Carbon Dioxide Anion Gap BUN Creatinine Estim Creat Clear Calc Est GFR (MDRD) Af Amer Est GFR (MDRD) Non-Af BUN/Creatinine Ratio Glucose Calcium Triglycerides 92 Cholesterol 184 LDL Cholesterol 111 VLDL Cholesterol 18 HDL Cholesterol 55 Medical Necessity - Tobacco Use Smoking Status: Never smoker Tobacco Use: Non-smoker Assessment/Plan All Active Problems Amnesia, global, transient (Acute) Impressions 1. Suspected transient global amnesia - following a very traumatic event 2. Hypertension 3. Hyperlipidemia 4. Rheumatoid arthritis Discussed with Dr. Torres-we will obtain EEG and if this is unremarkable we will likely discharge home later today
--- NOTE | 2019-01-03 10:45 | PCM.CONS.GEN ---
Problem List (1) Amnesia, global, transient Status: Acute Reason for Consult Date of Consultation: 01/03/19 Reason for Consultation: Amnesia History of Present Illness: The patient is a 63 year old F with PMH HTN, HLD admitted with amnesia. Per patient she went shopping yesterday 01/02/19 in the morning, then came home and found her dog collapsed, later remembers taking him to the vet and the dog there but does not remember anything after that, per she initially lost the whole day, but later remembered some portions of the day but is still amnestic to about 2 to 21/2 hours when she went to the vet. Denies any PEREZ, focal motor weakness, witnessed seizures, sensory loss, vision disturbances, speech disturbances or dizziness. Per she kept repeating herself during the amnestic period. SBP on admission was 189 mmHg. [] Past Medical History Past Medical History (Chronic Problems): Chronic Problems HTN (hypertension) (Chronic) Dyslipidemia (Chronic) Allergies bacitracin [From Neosporin ([id number])] Allergy (Verified 01/11/15 09:01) Swelling bacitracin zinc [From Neosporin ([id number])] Allergy (Verified 01/11/15 09:01) Swelling clindamycin Allergy (Verified 01/11/15 09:01) Rash neomycin sulfate [From Neosporin ([id number])] Allergy (Verified 01/11/15 09:01) Swelling polymyxin B [From Neosporin ([id number]-[id number])] Allergy (Verified 01/11/15 09:01) Swelling Home Medications: Ambulatory Orders Medication Instructions Recorded Simvastatin [Zocor] 20 mg PO QHS 01/11/15 Aspirin [Adult Low Dose Aspirin EC] 81 mg PO DAILY 01/02/19 Folic Acid 1 mg PO DAILY 01/02/19 Fosinopril Sodium 40 mg PO DAILY 01/02/19 Hydrochlorothiazide 12.5 mg PO DAILY 01/02/19 Methotrexate Sodium [Methotrexate] 15 mg PO WE 01/02/19 Vitamin B Complex 01/02/19 Surgical History: hysterectomy Lives: Spouse/ Significant Other Smoking Status: Never smoker Tobacco Use: Non-smoker Alcohol: None - *Family History Maternal History Items: Hypertension, Stroke Paternal History Items: Cancer - Pancreatic, Heart Disease - Arrhythmia, - - Rheumatoid arthritis Review of Systems Constitutional: Reports: - - complete ROS negative except as documented in HPI Patient Problems: Active and Suspected Problems Amnesia, global, transient (Acute) - Physical Exam General: Alert HEENT: Normocephalic Neck: Supple Lungs: Normal air movement Cardiovascular: Normal S1, Normal S2 Abdomen: Bowel Sounds Present Extremities: No cyanosis Neurological: Cranial nerves II-XII grossly intact, Deep Tendon Reflexes 2+/4 and Symmetrical, Neuro grossly intact, Motor Exam 5/5 strength throughout, Muscle tone normal, Sensory exam intact to light touch and pain, Coordination normal Psych/Mental Status: Normal Affect Vital Signs Temp Pulse Resp BP Pulse Ox 98.2 F 51 L 12 158/71 H 99 01/03/19 09:15 01/03/19 09:15 01/03/19 09:15 01/03/19 09:15 01/03/19 09:15 Oxygen Delivery Method Room Air Weight: 80 kg Body Mass Index (BMI) 27.6 Finger Stick Blood Glucose 100 Intake and Output for Last 24 Hours 01/01/19 01/02/19 01/03/19 23:59 23:59 23:59 Intake Total 240 / 240 240 / 240 Balance 240 / 240 240 / 240 Laboratory Tests Past 24 Hrs 01/02/19 01/02/19 01/02/19 18:24 18:24 18:24 WBC 7.9 RBC 4.44 Hgb 14.4 Hct 39.9 MCV 89.9 MCH 32.4 H MCHC 36.1 H RDW 12.2 RDW Differential 38.9 Plt Count 185 MPV 10.9 Immature Gran % (Auto) 0.100 Neut % (Auto) 50.5 Lymph % (Auto) 40.6 [place] % (Auto) 7.7 Eos % (Auto) 0.8 Baso % (Auto) 0.3 Absolute Neuts (auto) 4.0 Absolute Lymphs (auto) 3.21 Total Counted Not Reportable PT Cancelled INR Cancelled APTT Cancelled Sodium 139 Potassium 4.0 Chloride 106 Carbon Dioxide 24.0 Anion Gap 9 BUN 12 Creatinine 0.84 Estim Creat Clear Calc 64.93 Est GFR (MDRD) Af Amer 87 Est GFR (MDRD) Non-Af 72 BUN/Creatinine Ratio 14.3 Glucose 100 Calcium 9.7 Triglycerides Cholesterol LDL Cholesterol VLDL Cholesterol HDL Cholesterol 01/02/19 01/03/19 18:55 05:44 WBC RBC Hgb Hct MCV MCH MCHC RDW RDW Differential Plt Count MPV Immature Gran % (Auto) Neut % (Auto) Lymph % (Auto) [place] % (Auto) Eos % (Auto) Baso % (Auto) Absolute Neuts (auto) Absolute Lymphs (auto) Total Counted PT 13.5 INR 1.1 APTT 25.2 Sodium Potassium Chloride Carbon Dioxide Anion Gap BUN Creatinine Estim Creat Clear Calc Est GFR (MDRD) Af Amer Est GFR (MDRD) Non-Af BUN/Creatinine Ratio Glucose Calcium Triglycerides 92 Cholesterol 184 LDL Cholesterol 111 VLDL Cholesterol 18 HDL Cholesterol 55 Assessment/Plan All Active Problems Amnesia, global, transient (Acute) The patient is a 63 year old F with PMH HTN, HLD admitted with amnesia. Per patient she went shopping yesterday 01/02/19 in the morning, then came home and found her dog collapsed, later remembers taking him to the vet and the dog there but does not remember anything after that, per she initially lost the whole day, but later remembered some portions of the day but is still amnestic to about 2 to 21/2 hours when she went to the vet. Denies any PEREZ, focal motor weakness, witnessed seizures, sensory loss, vision disturbances, speech disturbances or dizziness. Per she kept repeating herself during the amnestic period. SBP on admission was 189 mmHg [] Impression Likely TGA R/O Stroke vs seizure Plan -Await MRI brain/MRA head/neck -EEG -Better BP control, defer to hospitalist team -Goal BP < 130/80 mmHg -GI/DVT prophylaxis -Fall precautions -Follow up with Neurology in 6 weeks -Please call with questions if any -Thank you for allowing us to participate in patient's care and management Code Visit Inpatient E&M: 11485 Init Hosp L3
--- NOTE | 2019-01-03 14:56 | CHAPLAIN ---
Type of Pastoral Visit _x__ Initial Visit ___ Follow-up Visit ___ On-call Visit ___ General Patient Visit ___ Spiritual Assessment ___ Family Conference ___ Bereavement ___ Rapid Response ___ Code Blue ___ Other (describe below) Pastoral Care Referral From _x__ Patient ___ Family ___ Nurse ___ Physician ___ Bobbin Drier ___ Family Assessment Worker ___ Other (describe below) Sacrament/Intervention _x__ Active listening ___ Anointing ___ Mu-Ism ___ Bereavement ___ Communion ___ Jenny exploration ___ _x__ Life review _x__ Prayer ___ Reconciliation ___ Sacrament of Sick _x__ Supportive presence ___ Wedding ___ Other (describe below) Pastoral Comments
--- NOTE | 2019-01-03 15:18 | EEG ---
- Electroencephalogram Date of service 01/03/2019 History EEG is being done in this 63 yr F to rule out seizures EEG Description: This is an 18 channel EEG with 10-20 lead placement system. Bipolar montages, and Referential montages were reviewed. Photic stimulation and Hyperventilation were performed. The posterior dominant rhythm is 11 HZ synchronous, symmetric, reacting to eye opening and closing. Photo stimulation elicited normal driving response but no abnormal photoparoxysmal response, Hyperventilation did not elicit any abnormal photoparoxysmal response. Sleep was identified. There is no abnormal background slowing noted. There was no epileptiform discharges or electrographic seizures noted during this recording. EEG Interpretation This is a normal awake and asleep EEG. There is no epileptiform discharges or electrographic seizures noted during the record.
--- NOTE | 2019-01-03 17:49 | DCINST_ITS ---
- Discharge Diagnoses Current Active Problems: Current Active and Chronic Problems Amnesia, global, transient (Acute) You will use the following diet at home:: Cardiac Your food should be the consistency of: Regular Your liquids should be the consistency of: Regular/Thin Discharge Activity: Return to Normal Activity Call your doctor if you observe: Fever of 101 or Higher, Shortness of breath, Dizziness, Fainting spells, Chest pain, - - Unilateral numbness or weakness, slurred speech, inability to get your words out, facial droop, recurrent memory loss Additional Instructions: 1. The MRI of the brain showed no evidence of stroke. The angiogram of the head and neck showed no evidence of aneurysm, dissection or significant arterial disease/stenosis. The EEG was negative for seizure a ctivity. The ECHO showed that your heart squeezes normally and the ejection fraction is 65% which is normal. The left atrium was mildly enlarged and there was a lot of calcification around the mitral valve. Bottom line is you are good! I think that the trauma of losing your pet caused a transient decrease in circulation to a certain area of the brain called the hippocampus. I have printed off an article for you on Transient global amnesia to read. Allergies/Adverse Reactions: Allergies bacitracin [From Neosporin ([id number])] Allergy (Verified 01/11/15 09:01) Swelling bacitracin zinc [From Neosporin ([id number]-nhy-mitlu)] Allergy (Verified 01/11/15 09:01) Swelling clindamycin Allergy (Verified 01/11/15 09:01) Rash neomycin sulfate [From Neosporin ([id number]-gka-oyocy)] Allergy (Verified 01/11/15 09:01) Swelling polymyxin B [From Neosporin ([id number]-rhq-[id number])] Allergy (Verified 01/11/15 09:01) Swelling Medications to take at Discharge Simvastatin [Zocor] 20 mg PO QHS 01/11/15 Aspirin [Adult Low Dose Aspirin EC] 81 mg PO DAILY 01/02/19 Folic Acid 1 mg PO DAILY 01/02/19 Fosinopril Sodium 40 mg PO DAILY 01/02/19 Hydrochlorothiazide 12.5 mg PO DAILY 01/02/19 Methotrexate Sodium [Methotrexate] 15 mg PO WE 01/02/19 Vitamin B Complex 01/02/19 Primary Care Physician: Fadumo Ruth MD [Primary Care Provider] - Please follow up with your Primary Care Physician in: 3-5 days Test Results: Test results from this visit will be discussed in further detail at your follow- up appointment, if applicable. Proposed Discharge Date: 01/03/19
--- NOTE | 2019-01-03 18:15 | DS.PCM_ITS ---
Discharge Date and Diagnosis Date of Admission: 01/02/19 Date of Discharge: 01/03/19 - Primary Discharge Diagnosis Active and Suspected Problems Amnesia, global, transient (Acute) - Secondary Discharge Diagnosis Chronic Problems HTN (hypertension) (Chronic) Dyslipidemia (Chronic) mild left atrial enlargement Moderate to severe mitral annular calcification with +1 MR Mild to moderate TR Hospital Course and Treatment Imaging Results: Clinical Impression(s) from Imaging Studies Brain CT 01/02/19 18:26 IMPRESSION: Mild periventricular white matter ischemic change. No evidence for acute bleed. If concern for acute infarct MRI recommended.. Electronically Signed: Enoc Li MD at 18:43 EDT , Service support , Brain MRI 01/03/19 08:30 IMPRESSION: 1. No MRI evidence of acute or subacute ischemic infarct. 2. No MRI evidence of remote cortical-based ischemic infarct or old lacunar infarcts. 3. Chronic white matter ischemic changes in both cerebral hemispheres. Electronically Signed: George Baptiste MD at 11:01 EDT , Service support , Head MRA 01/03/19 08:30 IMPRESSION: Normal MRA of the head Electronically Signed: George Baptiste MD at 11:03 EDT , Service support , Neck MRA 01/03/19 08:30 IMPRESSION: 1. Normal MRA of both carotid arteries and vertebral arteries. 2. Normal aortic arch and origins of the great vessels. Electronically Signed: George Baptiste MD at 11:05 EDT , Service support , Laboratory Tests 01/03/19 01/02/19 01/02/19 Range/Units 05:44 18:55 18:24 WBC (4.4-11.0) K/mm3 RBC (4.2-5.4) M/mm3 Hgb (12.0-15.0) g/dl Hct (37-47) % MCV (81-99) fL MCH (27.0-32.0) pg MCHC (32-36) g/gl RDW (11.6-14.6) % RDW Differential (35.1-43.9) fl Plt Count (150-450) K/mm3 MPV (6.2-12.0) fl Immature Gran % (Auto) (0.0-0.9) % Neut % (Auto) (47-70) % Lymph % (Auto) (19-41) % [place] % (Auto) (0-10) % Eos % (Auto) (0-5) % Baso % (Auto) (0-1) % Absolute Neuts (auto) (2.0-7.7) X10^3/uL Absolute Lymphs (auto) (0.83-4.51) X10^3/ul Total Counted PT 13.5 INR 1.1 APTT 25.2 Sodium 139 (136-145) mmol/L Potassium 4.0 (3.5-5.1) mmol/L Chloride 106 (98-107) mmol/L Carbon Dioxide 24.0 (21.0-32.0) mmol/L Anion Gap 9 (5-15) BUN 12 (7-18) mg/dL Creatinine 0.84 (0.55-1.02) mg/dL Estim Creat Clear Calc 64.93 ml/min Est GFR (MDRD) Af Amer 87 (>60) mL/min Est GFR (MDRD) Non-Af 72 (>60) mL/min BUN/Creatinine Ratio 14.3 (10-20) RATIO Glucose 100 (74-106) mg/dL Calcium 9.7 (8.5-10.1) mg/dL Triglycerides 92 ( - 199) mg/dL Cholesterol 184 (200) mg/dL LDL Cholesterol 111 (0-130) mg/dL VLDL Cholesterol 18 (5-40) mg/dL HDL Cholesterol 55 (40 - ) mg/dL 01/02/19 01/02/19 Range/Units 18:24 18:24 WBC 7.9 (4.4-11.0) K/mm3 RBC 4.44 (4.2-5.4) M/mm3 Hgb 14.4 (12.0-15.0) g/dl Hct 39.9 (37-47) % MCV 89.9 (81-99) fL MCH 32.4 H (27.0-32.0) pg MCHC 36.1 H (32-36) g/gl RDW 12.2 (11.6-14.6) % RDW Differential 38.9 (35.1-43.9) fl Plt Count 185 (150-450) K/mm3 MPV 10.9 (6.2-12.0) fl Immature Gran % (Auto) 0.100 (0.0-0.9) % Neut % (Auto) 50.5 (47-70) % Lymph % (Auto) 40.6 (19-41) % [place] % (Auto) 7.7 (0-10) % Eos % (Auto) 0.8 (0-5) % Baso % (Auto) 0.3 (0-1) % Absolute Neuts (auto) 4.0 (2.0-7.7) X10^3/uL Absolute Lymphs (auto) 3.21 (0.83-4.51) X10^3/ul Total Counted Not Reportable PT Cancelled INR Cancelled APTT Cancelled Sodium (136-145) mmol/L Potassium (3.5-5.1) mmol/L Chloride (98-107) mmol/L Carbon Dioxide (21.0-32.0) mmol/L Anion Gap (5-15) BUN (7-18) mg/dL Creatinine (0.55-1.02) mg/dL Estim Creat Clear Calc ml/min Est GFR (MDRD) Af Amer (>60) mL/min Est GFR (MDRD) Non-Af (>60) mL/min BUN/Creatinine Ratio (10-20) RATIO Glucose (74-106) mg/dL Calcium (8.5-10.1) mg/dL Triglycerides ( - 199) mg/dL Cholesterol (200) mg/dL LDL Cholesterol (0-130) mg/dL VLDL Cholesterol (5-40) mg/dL HDL Cholesterol (40 - ) mg/dL Dr. Michel Torres-neurology Operations: None Procedures: Electroencephalogram - Normal awake and asleep EEG with no epileptiform discharges or electrographic seizures noted., Transthoracic echo - 65% left ventricular ejection fraction, moderate to severe mitral annular calcification with +1 MR, mild left atrial enlargement, 1-2+ TR Summary of Care Provided: The patient is a 63-year-old female with a past medical history of hypertension and hyperlipidemia who presented to the ED at [facility] on 01/02/2019 complaining of forgetfulness that started 2 hours prior to presentation. she and her had taken their dog to the vet and the dog . Sx started after the dog . Vital signs at presentation to the emergency department were temperature 97.9, pulse rate 71, blood pressure 189/86, respiratory rate 15 and she was 100% saturated on room air. CBC was unremarkable. BMP was unremarkable. A noncontrasted CT brain showed mild periventricular white matter ischemic change with no evidence for acute bleed or acute infarct. She was admitted to a monitored bed on PCU and MRI was ordered for the following morning. Stroke protocol/neurochecks were ordered. MRI of the brain was unremarkable. Normal MRA of the head and neck. Seen in consultation by Dr. Torres who recommended an EEG which was negative for epileptiform activity. The patient was discharged home. PE - see the PN from 01/03. Pt alert and oriented X 3 with no focal neurologic deficits. This note was generated with [employer] dictation software. It may contain incorrect words, spelling, and punctuation that were not noted in checking the note before signing. - Physical Exam Vital Signs Temp Pulse Resp BP Pulse Ox 98.0 F 55 L 16 151/77 H 98 01/03/19 15:17 01/03/19 15:17 01/03/19 15:17 01/03/19 15:17 01/03/19 15:17 Oxygen Delivery Method Room Air Weight: 176 lb 5.917 oz Body Mass Index (BMI) 27.6 Finger Stick Blood Glucose 100 Intake and Output for Last 24 Hours 01/01/19 01/02/19 01/03/19 23:59 23:59 23:59 Intake Total 240 / 240 470 / 470 Balance 240 / 240 470 / 470 Laboratory Tests Past 24 Hrs 01/02/19 01/02/19 01/02/19 18:24 18:24 18:24 WBC 7.9 RBC 4.44 Hgb 14.4 Hct 39.9 MCV 89.9 MCH 32.4 H MCHC 36.1 H RDW 12.2 RDW Differential 38.9 Plt Count 185 MPV 10.9 Immature Gran % (Auto) 0.100 Neut % (Auto) 50.5 Lymph % (Auto) 40.6 [place] % (Auto) 7.7 Eos % (Auto) 0.8 Baso % (Auto) 0.3 Absolute Neuts (auto) 4.0 Absolute Lymphs (auto) 3.21 Total Counted Not Reportable PT Cancelled INR Cancelled APTT Cancelled Sodium 139 Potassium 4.0 Chloride 106 Carbon Dioxide 24.0 Anion Gap 9 BUN 12 Creatinine 0.84 Estim Creat Clear Calc 64.93 Est GFR (MDRD) Af Amer 87 Est GFR (MDRD) Non-Af 72 BUN/Creatinine Ratio 14.3 Glucose 100 Calcium 9.7 Triglycerides Cholesterol LDL Cholesterol VLDL Cholesterol HDL Cholesterol 01/02/19 01/03/19 18:55 05:44 WBC RBC Hgb Hct MCV MCH MCHC RDW RDW Differential Plt Count MPV Immature Gran % (Auto) Neut % (Auto) Lymph % (Auto) [place] % (Auto) Eos % (Auto) Baso % (Auto) Absolute Neuts (auto) Absolute Lymphs (auto) Total Counted PT 13.5 INR 1.1 APTT 25.2 Sodium Potassium Chloride Carbon Dioxide Anion Gap BUN Creatinine Estim Creat Clear Calc Est GFR (MDRD) Af Amer Est GFR (MDRD) Non-Af BUN/Creatinine Ratio Glucose Calcium Triglycerides 92 Cholesterol 184 LDL Cholesterol 111 VLDL Cholesterol 18 HDL Cholesterol 55 Discharge Activity: Return to Normal Activity Call your doctor if you observe: Fever of 101 or Higher, Shortness of breath, Dizziness, Fainting spells, Chest pain, - - Unilateral numbness or weakness, slurred speech, inability to get your words out, facial droop, recurrent memory loss Home Medications: Medications to take at Discharge Simvastatin [Zocor] 20 mg PO QHS 01/11/15 Aspirin [Adult Low Dose Aspirin EC] 81 mg PO DAILY 01/02/19 Folic Acid 1 mg PO DAILY 01/02/19 Fosinopril Sodium 40 mg PO DAILY 01/02/19 Hydrochlorothiazide 12.5 mg PO DAILY 01/02/19 Methotrexate Sodium [Methotrexate] 15 mg PO WE 01/02/19 Vitamin B Complex 01/02/19 Primary Care Physician: Fadumo Ruth MD [Primary Care Provider] - Please follow up with your Primary Care Physician in: 3-5 days Disposition: Home Minutes spent on discharge:: 30 Medical Necessity - Tobacco Use Smoking Status: Never smoker Tobacco Use: Non-smoker Meaningful Use Info Meaningful Use Diagnoses (Choose all that apply): None applicable Code Visit OBSV E&M: 51243 Observation care discharge
== END 2019-01-03 17:58 | disposition home or self-care (01) ==
LOC: ED 18:56 → PCU 01-03 01:35
PROVIDERS: Admitting Provider Hospitalist; Emergency Provider Emergency Medicine; Family Provider Family Medicine; PCP Family Medicine; Visit Provider Internal Medicine
DX: G45.4 Transient global amnesia (principal); I10 Essential (primary) hypertension; R29.700 NIHSS score 0; E78.5 Hyperlipidemia, unspecified; Z79.899 Other long term (current) drug therapy; Z79.82 Long term (current) use of aspirin; M06.9 Rheumatoid arthritis, unspecified
CPT/HCPCS: 36415; 70450; 70544; 70549; 70551; 80048; 80061; 85025; 85610; 85730; 93005; 93306; 94762; 95819; 96372; 99218; 99285; A9575; A4216; G0378

== ENCOUNTER → 2019-02-09 10:11 | Outpatient (CLI) | payer MEDICARE, OTHER, SELFPAY ==
[2019-01-02 23:48] VITALS: BMI 27.6
[2019-02-09 12:17] LABS: Absolute Neutrophil Count 2.8 X10^3/uL (2.0-7.7); Basophil# 0.04 X10^3/uL; Basophil% 0.8 % (0-1); Eosinophil# 0.06 X10^3/uL; Eosinophils% 1.1 % (0-5); Hematocrit 40.6 % (37-47); Hemoglobin 14.1 g/dL (12.0-15.0); Mean Corp Hgb Conc 34.7 g/dL (32-36); Mean Corpuscular Hgb 32.3 pg (27.0-32.0); Mean Corpuscular Volume 92.9 fL (81-99); Mean Platelet Vol. 11.1 fl (6.2-12.0); Monocyte# 0.61 X10^3/uL; Monocyte% 11.5 % (0-10); NRBC Flagged by Analyzer 0 % (0-5); Neutrophil # 2.77 X10^3/uL (2.7-7.7); Neutrophil % 52.2 % (47-70); Platelet Count 179 K/mm3 (150-450); Red Blood Count 4.37 M/mm3 (4.2-5.4); White Blood Count 5.3 K/mm3 (4.4-11.0)
[2019-02-09 13:07] LABS: ALB/GLOB Ratio 1.2 RATIO (0.9-2.4); AST(SGOT) 18 U/L (15-37); Alanine Aminotransfer ALT/SGPT 31 U/L (13-56); Alkaline Phosphatase 84 U/L (45-117); Anion Gap 8 (5-15); BUN 12 mg/dL (7-18); BUN/Creat Ratio 17.2 RATIO (10-20); Calcium,Total 9.2 mg/dL (8.5-10.1); Chloride 105 mmol/L (98-107); EST Glomerular Filtration Rate 89 mL/min (>60); Est Glom Filt Rate - Afr Amer 108 mL/min (>60); Globulin 3.3 g/dL (2.2-4.2); Glucose 83 mg/dL (74-106); Potassium 3.6 mmol/L (3.5-5.1); Protein, Total 7.3 g/dL (6.4-8.2); Sodium Level 141 mmol/L (136-145)
== END ==
PROVIDERS: Family Provider Family Medicine; PCP Family Medicine; Referring Provider Internal Medicine Rheumatology; Visit Provider Internal Medicine Rheumatology
DX: M06.4 Inflammatory polyarthropathy (principal); M19.072 Primary osteoarthritis, left ankle and foot; I10 Essential (primary) hypertension; E78.5 Hyperlipidemia, unspecified; Z79.899 Other long term (current) drug therapy
CPT/HCPCS: 36415; 80053; 85025

== ENCOUNTER → 2019-03-17 08:16 | Outpatient (CLI) | payer MEDICARE, OTHER, SELFPAY ==
[2019-01-02 23:48] VITALS: BMI 27.6
[2019-03-17 10:58] LABS: AST(SGOT) 19 U/L (15-37); Alanine Aminotransfer ALT/SGPT 24 U/L (13-56); Cholesterol 167 mg/dL (200); High Density Lipoprotein 50 mg/dL; Triglycerides 97 mg/dL; Very Low Density Lipoprotein 19 mg/dL (5-40)
== END ==
PROVIDERS: Family Provider Family Medicine; PCP Family Medicine; Referring Provider Family Medicine; Visit Provider Family Medicine
DX: E78.00 Pure hypercholesterolemia, unspecified (principal)
CPT/HCPCS: 36415; 80061; 84450; 84460

== ENCOUNTER → 2019-03-21 11:15 | Outpatient (CLI) | payer MEDICARE, OTHER, SELFPAY ==
[2019-01-02 23:48] VITALS: BMI 27.6
--- NOTE | 2019-03-21 11:18 | RAD_ITS ---
STUDY: X-RAY - PELVIS AND LEFT HIP REASON FOR EXAM: Female, 64 years old. Left hip pain. TECHNIQUE: 3 views of the pelvis and hip. COMPARISON: None. FINDINGS: There is a non-specific bowel gas pattern. Normal visualized soft tissue structures. Tubal ligation clips are seen in the pelvis. Scattered phleboliths are noted. Normal bilateral iliac wings, sacroiliac joints and visualized sacrum. Normal bilateral superior and inferior pubic rami. Normal pubic symphysis. Normal bilateral ischial tuberosities. Normal visualized left femoral head. There is mild osteoarthritic spur formation of the lateral acetabular rim. There is mild articular joint space narrowing of the left hip. RAD/HIP, UNI W/ Pelvis 2-3 Views IMPRESSION: Mild degenerative changes left hip. There is no acute fracture or dislocation. Electronically Signed: Edward Perez DO at 16:55 EDT Tel [phone], Service support ,
--- NOTE | 2019-03-21 11:18 | RAD_ITS ---
STUDY: X-RAY - CERVICAL SPINE REASON FOR EXAM: Female, 64 years old. Cervical pain. TECHNIQUE: 5 view(s) of the cervical spine were obtained. COMPARISON: None FINDINGS: There are degenerative changes of the anterior atlantoaxial articulation. Normal odontoid process. Normal cervical lordosis. There is minimal endplate spondylosis and disc space narrowing most marked at C6-7. There is no evidence of acute fracture or loss of vertebral axial height. There is minimal neural foraminal narrowing bilaterally at C6-7. There is maintenance of normal alignment. The soft tissue structures are unremarkable. RAD/Cerv Spine 4 or 5 Views IMPRESSION: Degenerative changes of the cervical spine. Electronically Signed: Edward Perez DO at 16:57 EDT Tel [phone], Service support ,
== END ==
PROVIDERS: Family Provider Family Medicine; PCP Family Medicine; Referring Provider Family Medicine; Visit Provider Family Medicine
DX: M47.812 Spondylosis without myelopathy or radiculopathy, cervical region (principal); M16.12 Unilateral primary osteoarthritis, left hip
CPT/HCPCS: 72050; 73502

== ENCOUNTER → 2019-04-05 13:14 | Outpatient (CLI) | payer MEDICARE, OTHER, SELFPAY ==
[2019-01-02 23:48] VITALS: BMI 27.6
--- NOTE | 2019-04-05 13:17 | BI_ITS ---
MAMMOGRAPHY - BILATERAL SCREENING REASON FOR EXAM: Female, 64 years old. Routine annual screening examination. PERTINENT HISTORY: Non-contributory. TECHNIQUE: Digital bilateral breast russ (3D mammographic acquisition) in the CC and MLO projections. 2-D mediolateral oblique (MLO) and craniocaudad (CC) views of both breasts were obtained. CAD: Full Field Digital Mammography with Computer Added Detection was performed. COMPARISON: Comparison is made with prior study dated June 22, 2017 and June 02, 2016. FINDINGS: Breast Composition: There are scattered areas of fibroglandular density. There are no dominant masses or suspicious calcifications. Stable scattered calcifications bilaterally. No other significant abnormalities are identified. There has been no significant change since the prior study. BI/SCREEN MAMM (CAD) W/RUSS BILAT IMPRESSION: Stable bilateral screening mammogram. Yearly follow-up mammogram recommended. (A) ASSESSMENT CATEGORY: BIRADS Category 2: Benign. A letter regarding these results will be sent to the patient by the facility within 30 days. Approximately 10% of breast cancers are not detected by mammography. A normal mammogram should not delay biopsy of a clinically suspicious abnormality. [id number] Electronically Signed: Bryan Nelson, at 14:46 EDT , Service support ,
== END ==
PROVIDERS: Family Provider Family Medicine; PCP Family Medicine; Referring Provider Family Medicine; Visit Provider Family Medicine
DX: Z12.31 Encounter for screening mammogram for malignant neoplasm of breast (principal)
CPT/HCPCS: 77063; 77067

== ENCOUNTER → 2019-05-19 13:31 | Outpatient (CLI) | payer MEDICARE, OTHER, SELFPAY ==
[2019-01-02 23:48] VITALS: BMI 27.6
[2019-05-19 14:25] LABS: Absolute Lymphocyte Count 1.73 X10^3/uL (0.83-4.51); Absolute Neutrophil Count 3.7 X10^3/uL (2.0-7.7); Basophil# 0.05 X10^3/uL; Basophil% 0.8 % (0-1); Eosinophils% 1.7 % (0-5); Hematocrit 40.8 % (37-47); Hemoglobin 13.9 g/dL (12.0-15.0); Lymphocyte # 1.73 X10^3/ul (4.0); Lymphocyte % 28.6 % (19-41); Mean Corp Hgb Conc 34.1 g/dL (32-36); Mean Corpuscular Hgb 31.6 pg (27.0-32.0); Mean Corpuscular Volume 92.7 fL (81-99); Mean Platelet Vol. 11.1 fl (6.2-12.0); Monocyte# 0.48 X10^3/uL; Monocyte% 7.9 % (0-10); NRBC Flagged by Analyzer 0 % (0-5); Neutrophil # 3.67 X10^3/uL (2.7-7.7); Neutrophil % 60.8 % (47-70); Platelet Count 169 K/mm3 (150-450); RBC Distribution Width CV 11.5 % (11.6-14.6); RBC Distribution Width SD 38.9 fl (35.1-43.9)
[2019-05-19 14:55] LABS: ALB/GLOB Ratio 1.2 RATIO (0.9-2.4); AST(SGOT) 20 U/L (15-37); Alanine Aminotransfer ALT/SGPT 22 U/L (13-56); Albumin, Serum 3.7 g/dL (3.2-5.0); Alkaline Phosphatase 95 U/L (45-117); Anion Gap 8 (5-15); BUN 12 mg/dL (7-18); Calcium,Total 8.8 mg/dL (8.5-10.1); Chloride 106 mmol/L (98-107); EST Glomerular Filtration Rate 76 mL/min (>60); Est Glom Filt Rate - Afr Amer 92 mL/min (>60); Globulin 3.2 g/dL (2.2-4.2); Glucose 104 mg/dL (74-106); Potassium 2.9 mmol/L (3.5-5.1); Protein, Total 6.9 g/dL (6.4-8.2); Sodium Level 141 mmol/L (136-145)
== END ==
PROVIDERS: Family Provider Family Medicine; PCP Family Medicine; Referring Provider Internal Medicine Rheumatology; Visit Provider Internal Medicine Rheumatology
DX: M06.4 Inflammatory polyarthropathy (principal); M19.072 Primary osteoarthritis, left ankle and foot; I10 Essential (primary) hypertension; E78.5 Hyperlipidemia, unspecified; Z79.899 Other long term (current) drug therapy
CPT/HCPCS: 36415; 80053; 85025

== ENCOUNTER 2019-05-24 08:00 | Outpatient (RCR) | payer MEDICARE, OTHER, SELFPAY ==
[2019-01-02 23:48] VITALS: BMI 27.6
--- NOTE | 2019-05-09 10:44 | HP.PTEVAL ---
Patient's Visit Information JOVANNI PATTERSON is a 64 year old F referred to Physical Therapy by Fadumo Ruth MD with a diagnosis of L hip pain, cervical pain. Date of Evaluation: 04/05/19 Physical Therapist: Yanira Coffey DPT - Visit Plan Frequency: 2x /Week Duration: 4 Weeks Plan: Focus on general LE/Core s/s, improving posture/body mechanics, improving cervical ROM, and improving UT & levator scap flexibility. - Subjective Findings: 2009. attened PT for neck & L shoulder - has started to rturn recently. Last injection for neck pain was 2009. Neck has felt super-tight & all jammed up lately. Arm gives out at times w/ chaim shooting pain then turns to an ache & slowly goes away. Worst: -03/14 Aggravating: unsure, kaches all day (not enough to stop her from doing anything). Best: 1-2 Relieving factors: unsure, just a constant ache. Some past success w/ traction w/ previous therapy. has inversion table at home shes uses, but it doesn't seem to help. Pain runs from top of enck to upper traps. L hip pain started 2 months ago and has progressively gotten worse. No LATOYA, insidious onset - osteoarthritis. Pain at ant. hip. Describes pain as constant ache/burn. Worst; -01/11 Aggravating Factors: Sitting or laying on L side, stairs, sleeping on L side (has begun to sleep on back) Best: pain free times Relieving [id number]: adjusting position, moving. Does disrupt sleep if laying on L side. Arcadio radiating pain elsewhere, localized to ant. hip. Occupation: Retired Typical Activities: Walk 3-4 miles a day, yard work, helps neighbors packaging items. Two-Story house, 15-17 steps, laundry is on first floor. PMH/MEds: see chart, was hospitalized january 22 for transient global amnesia - 24 hour stay. Exercise program: just the walking 3-4 miles a day, silver sneakers in winter 1x in awhile. - Objective Posture: RS, FH - able to correct w/ v/c but could not maintain. Stairs: asc - reciprocal, no HR, no deviations. desc - lacked eccentric control, no HR. Gait: slight B toe-out. HR/TR: WNL w/ UE assist. SLS: 15 seconds. LLD: WNL. ROM: ankle WFL Knee WFL Hip WFL (pain at end range flexion/IR/ER/Abd.) Cervical: Flex/ext WFL, B SB 75% diminshed, B rot. 50% diminshed, ache w/ cervical testing in all planes. Strength: Ankle 5/5 Knee Ext 5/5 Flex 4/5 Hip 4-/5 t/o (pain w/ flexion, IR, & ER). Flexibility: Gastroc: Severe Hamstring: Mod., Quad: Mod. Muscle Length testing: Upper Trap: severe, Levator Scap: Severe. Sensation: WNL to Gross B touch. Special Tests: Cervical Distraction (+), Impingement (+), Ant. Labral Tear Hip (+), Post. Labral Tear Hip (-), Quadrant Test (+), SLump Test L (+), UNLTT (median/ulnar: (-) - Goals Goal 1:: Pt. will be I w/ HEP & progression. Goal Time Frame: 4-6 Weeks Goal 2:: Pt. will maintain proper postyure t/o tx. session to demo improved core strength. Goal Time Frame: 4-6 Weeks Goal 3:: Pt. will demo 5/5 strength in L LE Goal Time Frame: 4-6 Weeks Goal 4:: Pt. will report 0/10 pain for 1 week. Goal Time Frame: 4-6 Weeks - Rehabilitation Potential Physical Therapy Diagnosis: Presents w/ L hip pain, poor posture, decreased LE/core strength, decreased C/S ROM, impaired UE/LE flexibility which leads to poor tolerance of Adl's. Rehabilitation Potential: Good - Anticipated Interventions Patient/Client Instruction: Educate patient on: Benefits of Fitness Program Therapeutic Exercise to Include: Strength training, Endurance training, Body mechanics, Postural training, Passive ROM, Active ROM, Dynamic Lumbar Stabilization, Scapular Strength/Stabilization For the Purpose of:: To improve muscle performance and motor function Manual Therapy Techniques to Include: Soft tissue mobilization For the Purpose of:: To decrease pain, To increase ROM, To improve nutrient delivery to tissue TENS: Yes Cryotherapy (ice pack, ice massage): Yes Thermo therapy (hot pack): Yes Ultrasound (thermal/non thermal): Yes Thank you for the opportunity to evaluate your patient. For Medicare and Medicare HMO plans, please review the plan of care and approve it. It will need to be FAXED BACK to us at [phone] for Medicare purposes. For Medicare only, by signing this I certify the plan of care. Please let me know if there are questions or concerns regarding this plan of care. Physician Signature: Date:
--- NOTE | 2019-05-24 11:14 | HP.PTDCSUM ---
HP - PT D/C Summary It has been my pleasure to treat JOVANNI PATTERSON under orders from Fadumo Ruth MD, for the diagnosis of L hip pain, cervical pain for a total of 10 visit(s). Discharge Date: Please see the following information for a summary of their discharge status. - Subjective Subjective: Salvador reports that she is doing great- went on vacation without incidence. She always has a little twinge in her shoulder when she moves it wrong - Overall Improvement % Improvement: 90 - Objective Objective/Function: Posture: RS, FH - able to correct. Stairs: asc/desc - reciprocal, no HR, no deviations. Gait: slight B toe-out. HR/TR: WNL w/ UE assist. SLS: 15 seconds. LLD: WNL. ROM: ankle WFL Knee WFL Hip WFL no pain Cervical: Flex/ext WFL, B SB 25% diminshed, B rot. 25% diminshed due to tightness. Strength: Ankle 5/5 Knee Ext 5/5 Flex 4+/5 Hip 4+/5 t/o Flexibility: Gastroc: mild Hamstring: Mod., Quad: Mod. Muscle Length testing: Upper Trap: mod, Levator Scap: mod. Sensation: WNL to Gross B touch. - Goals Goal 1:: Pt. will be I w/ HEP & progression. Goal Progress: Goal Met Goal 2:: Pt. will maintain proper postyure t/o tx. session to demo improved core strength. Goal Progress: Progressing Goal 3:: Pt. will demo 5/5 strength in L LE Goal Progress: Progressing Goal 4:: Pt. will report 0/10 pain for 1 week. Goal Progress: Progressing - Plan Plan: Discharge to I HEP with [place] [facility] - D/C Information If there are questions or concerns regarding this patient's physical therapy, please feel free to call me at [phone]. Thank you for the referral of this patient. Sincerely, Yanira Coffey DPT
== END 2019-05-24 19:00 | disposition home or self-care (01) ==
LOC: PT 08:00
PROVIDERS: Family Provider Family Medicine; PCP Family Medicine; Referring Provider Family Medicine; Visit Provider Family Medicine
DX: M46.92 Unspecified inflammatory spondylopathy, cervical region (principal); M16.10 Unilateral primary osteoarthritis, unspecified hip; M25.552 Pain in left hip
CPT/HCPCS: 77063; 77067; 97110; 97140; 97161; 97164

== ENCOUNTER 2019-07-22 17:50 | Observation (INO) | payer MEDICARE, OTHER, SELFPAY ==
[2019-01-02 23:48] VITALS: BMI 27.6
[2019-07-22] VITALS (11 sets, daily range): BP systolic 141–184; BP diastolic 64–100; PULSE 53–67; RESP 14–18; TEMP 36.6–36.7; O2SAT 98–100; BMI 27.3; BMI 28.1
--- NOTE | 2019-07-22 18:15 | EKG12_ITS ---
Test Reason : HTN Blood Pressure : / mmHG Vent. Rate : 058 BPM Atrial Rate : 058 BPM P-R Int : 136 ms QRS Dur : 102 ms QT Int : 444 ms P-R-T Axes : -06 005 032 degrees QTc Int : 435 ms Sinus bradycardia Otherwise normal ECG Confirmed by AICHA ACEVES, JIGAR ([id number]), communications editor MARINO WETZEL ([id number]) on 07/25/2019 10:00:08 AM Referred By: ADRIANA Confirmed By:JIGAR HOLCOMB MD
--- NOTE | 2019-07-22 18:15 | CT_ITS ---
STUDY: CT BRAIN WITHOUT CONTRAST REASON FOR EXAM: Female, 64 years old. CVA, left arm numbness/tingling, hypertension RADIATION DOSAGE (If Supplied By Facility): CTDIvol = ( 44.99 ) mGy, DLP = ( 829.85 ) mGycm TECHNIQUE: Transaxial CT imaging of the brain was performed without administration of intravenous contrast material. Individualized dose optimization techniques were used for this CT. COMPARISON: January 02, 2019 and MRI of the brain dated January 03, 2019 FINDINGS: Normal soft tissue structures. There is asymmetry of the ventricles consistent with an anatomic variant. There are areas of decreased attenuation within the white matter tracts of the supratentorial brain, consistent with microvascular disease changes. Normal basal ganglia and thalami. Normal brainstem. Normal cerebellum. There is no intracranial hemorrhage. There are no findings of an acute ischemic infarction. Normal visualized paranasal sinuses. CT/Brain/Head without Contrast IMPRESSION: Small vessel ischemia. N.B. : The above information has been verbally conveyed by Caroline Macias MD to Denisha Camacho MD , , on 07/22/2019 18:40:08 (ET). Electronically Signed: Caroline Macias MD at 18:41 EST Tel , Service support ,
--- NOTE | 2019-07-22 18:17 | CT_ITS ---
We are attempting to reach an attending provider to discuss findings. An addendum with communication details will be sent when the communication is complete. STUDY: CTA HEAD AND NECK WITH CONTRAST REASON FOR EXAM: Female, 64 years old. CVA, left arm numbness/tingling, hypertension. RADIATION DOSAGE (If Supplied By Facility): CTDIvol = ( 23.36 ) mGy, DLP = ( 668.25 ) mGycm TECHNIQUE: CT angiography was performed with a multi-detector CT scanner. Data acquisition was obtained from the skull base through the vertex following intravenous administration of 100mL Isovue 370. MIP images were reconstructed from the axial data set. Post-processing of the angiographic images was performed, with multiplanar reformation and 3D reconstruction. Individualized dose optimization techniques were used for this CT. COMPARISON: MRA of the head and neck dated January 03, 2019 FINDINGS: Normal bilateral petrous carotid arteries. There is calcified plaque formation of the right cavernous carotid artery, without a cross-sectional luminal stenosis. There is calcified plaque formation of the left cavernous carotid artery, without a cross-sectional luminal stenosis. Normal right A1 segments of the anterior cerebral artery. Normal left A1 segments of the anterior cerebral artery. Normal intact anterior communicating artery (ACOM). Normal bilateral A2 segments of the anterior cerebral arteries. Normal right M1 and M2 segments of the middle cerebral arteries, with a normal M1 bifurcation. Normal left M1 and M2 segments of the middle cerebral arteries, with a normal M1 bifurcation. Normal right posterior communicating artery (PCOM). Normal left posterior communicating artery (PCOM). Normal bilateral vertebral arteries. Normal basilar artery with a normal basilar bifurcation. The visualized bilateral superior cerebellar (SCA) arteries are normal. Normal bilateral P1, P2 and visualized P3 segments of the posterior cerebral arteries. There is no demonstrated aneurysm of the [place] of [place]. There is no demonstrated abnormality of the visualized brain. AORTIC ARCH: There is atherosclerotic calcific plaque formation of the aortic arch and and left subclavian artery. Normal origins of the brachiocephalic, left common carotid, and left subclavian arteries. RIGHT CAROTID ARTERIES: There is atherosclerotic plaque formation of the common carotid artery, but without a hemodynamically significant stenosis. There is mild atherosclerotic plaque formation without significant narrowing of the right carotid bulb. There is mild atherosclerotic plaque formation of the origin of the right internal carotid artery with less than 50% cross sectional diameter stenosis. Normal visualized cervical portion of the right internal carotid artery. Normal origin of the right external carotid artery (ECA). LEFT CAROTID ARTERIES: There is atherosclerotic plaque formation of the common carotid artery, but without a hemodynamically significant stenosis. There is mild atherosclerotic plaque formation with minimal narrowing of the left carotid bulb. There is mild atherosclerotic plaque formation of the origin of the left internal carotid artery with less than 50% cross sectional diameter stenosis. Normal visualized cervical portion of the left internal carotid artery. Normal origin of the left external carotid artery (ECA). VERTEBRAL ARTERIES: Normal bilateral vertebral arteries. CT/CTA Head AND Neck W/ Contrast IMPRESSION: Atherosclerosis with no associated hemodynamically significant stenosis. Electronically Signed: Caroline Macias MD at 18:57 EST Tel , Service support ,
--- NOTE | 2019-07-22 18:22 | NURSING ---
[id number] STROKE ALERT CALLED
[2019-07-22 18:26] LABS: Absolute Lymphocyte Count 2.49 X10^3/uL (0.83-4.51); Absolute Neutrophil Count 2.6 X10^3/uL (2.0-7.7); Basophil# 0.02 X10^3/uL; Basophil% 0.3 % (0-1); Eosinophil# 0.06 X10^3/uL; Hematocrit 40.4 % (37-47); Hemoglobin 14.1 g/dL (12.0-15.0); Lymphocyte # 2.49 X10^3/ul (4.0); Lymphocyte % 42.3 % (19-41); Mean Corp Hgb Conc 34.9 g/dL (32-36); Mean Corpuscular Volume 91.8 fL (81-99); Mean Platelet Vol. 10.5 fl (6.2-12.0); Monocyte# 0.67 X10^3/uL; Monocyte% 11.4 % (0-10); NRBC Flagged by Analyzer 0 % (0-5); Neutrophil # 2.64 X10^3/uL (2.7-7.7); Neutrophil % 44.8 % (47-70); Platelet Count 180 K/mm3 (150-450); RBC Distribution Width SD 39.8 fl (35.1-43.9); White Blood Count 5.9 K/mm3 (4.4-11.0)
--- NOTE | 2019-07-22 18:33 | NURSING ---
CALL PLACED TO [facility]; PHONE GIVEN TO DR GUTIERREZ [facility] NEUROLOGIST WISHED TO SPEAK TO HIM DIRECTLY.
[2019-07-22 18:37] LABS: Partial Thromboplast Time 24.7 Seconds (24.1-36.2)
[2019-07-22 18:40] LABS: Bedside Glucose 99 mg/dL (70-110)
[2019-07-22] MEDS: 0.9% Normal Saline 1,000 ML 100 ML IV ×2 (18:42→21:47)
[2019-07-22 18:47] LABS: Anion Gap 4 (5-15); BUN 17 mg/dL (7-18); BUN/Creat Ratio 17.1 RATIO (10-20); Calcium,Total 9.3 mg/dL (8.5-10.1); Chloride 106 mmol/L (98-107); EST Glomerular Filtration Rate 59 mL/min (>60); Est Glom Filt Rate - Afr Amer 72 mL/min (>60); Estimated Creatinine Clearance 53.81 ml/min; Glucose 100 mg/dL (74-106); Potassium 3.3 mmol/L (3.5-5.1); Sodium Level 140 mmol/L (136-145)
--- NOTE | 2019-07-22 18:57 | RAD_ITS ---
STUDY: X-RAY CHEST REASON FOR EXAM: Female, 64 years old. HYPERTENSION TECHNIQUE: Single frontal view of the chest. COMPARISON: January 18, 2015 FINDINGS: There is no new focal consolidation. There are stable left basilar streaky opacities may be secondary to underlying scarring. Normal size heart. Normal mediastinum and bryant. Normal visualized pulmonary arteries. Normal visualized aortic arch and descending thoracic aorta. Normal visualized thoracic spine. Normal visualized ribs, clavicles, and shoulders. There is no demonstrated abnormality of the visualized soft tissue structures of the upper abdomen. RAD/Chest 1 View IMPRESSION: No acute cardiopulmonary process. Electronically Signed: Caroline Macias MD at 19:35 EST Tel , Service support ,
--- NOTE | 2019-07-22 19:11 | HP.PCM_ITS ---
Problem List (1) TIA (transient ischemic attack) Status: Acute (2) Rheumatoid arthritis Status: Chronic Qualifiers: Rheumatoid arthritis location: unspecified site Rheumatoid factor presence: unspecified presence Qualified Code(s): M06.9 - Rheumatoid arthritis, unspecified (3) Amnesia, global, transient Status: Chronic (4) HTN (hypertension) Status: Chronic Qualifiers: Hypertension type: essential hypertension Qualified Code(s): I10 - Essential (primary) hypertension (5) Dyslipidemia Status: Chronic History of Present Illness Date of Admission: 07/22/19 Chief Complaint: LUE paresthesias The patient is a 64 y/o F w/ PMHx: HTN, HLD, Rheumatoid arthritis, Hx Prior Global amnesia which lasted 4 hours with unremarkable neurological work-up felt secondary to HTN who presents to the [facility] ED on 07/22/19 with history of LUE paresthesias, started at ~ 1 pm specifically located in the L elbow with eventual inclusion of the forearm and hand with no additional neurological findings with elevated BP at that time, SBP in 190s, noted to be compliant with medications. CVA call w/ Neurology recommendation CTA head and neck, which was unremarkable with recommended admission for TIA/CVA evaluation. Notes paresthesias resolving while in the ED, now only in the fingertips. Patient does note that on 10 July she did have injection in her shoulder and she has ongoing issues with a spur but had no neurological paresthesia type symptoms following this until current presentation. NIH stroke scale in the ED 1 for paresthesias work-up in the ED included T 98, heart rate 67, BP initially 184/100 with improvement to 142/83, respiratory rate 18, 99% on room air, CBC with WC 5.9, hemoglobin 14.1, platelet 180 without marked evidence of left shift, increased lymphocytes and monocytes, unremarkable coags, BMP with potassium 3.3 otherwise unremarkable, troponin less than 0.015, CT brain with no acute intracranial findings, CTA head neck with no acute atherosclerotic associated hemodynamically significant stenoses, CXR without acute findings, EKG w/ SR without acute evidence of ischemia. In the ED patient administered NS. Past Medical History Past Medical History (Chronic Problems): Chronic Problems Amnesia, global, transient (Chronic) Rheumatoid arthritis (Chronic) HTN (hypertension) (Chronic) Dyslipidemia (Chronic) Allergies bacitracin [From Neosporin ([id number])] Allergy (Verified 07/22/19 17:53) Swelling bacitracin zinc [From Neosporin ([id number])] Allergy (Verified 07/22/19 17:53) Swelling clindamycin Allergy (Verified 07/22/19 17:53) Rash neomycin sulfate [From Neosporin ([id number]-[id number])] Allergy (Verified 07/22/19 17:53) Swelling polymyxin B [From Neosporin (ria-[id number]-[id number])] Allergy (Verified 07/22/19 17:53) Swelling Home Medications: Ambulatory Orders Medication Instructions Recorded Simvastatin [Zocor] 20 mg PO QHS 01/11/15 Aspirin [Adult Low Dose Aspirin EC] 81 mg PO DAILY 01/02/19 Folic Acid 1 mg PO DAILY 01/02/19 Fosinopril Sodium 40 mg PO DAILY 01/02/19 Hydrochlorothiazide 12.5 mg PO DAILY 01/02/19 Methotrexate Sodium [Methotrexate] 15 mg PO WE 01/02/19 Multivit with Calcium,Iron,Min 1 ea PO DAILY 07/22/19 [Multiple Vitamins For Women] Surgical History: hysterectomy, - - Hysterectomy, BPS, tonsillectomy, right carpal tunnel surgery. Psychiatric History: No pertinent psych hx TRIAL PARALEGAL History: No pertinent TRIAL PARALEGAL history Lives: Spouse/ Significant Other Smoking Status: Never smoker Tobacco Use: Non-smoker Alcohol: None Drugs: None - *Family History Maternal History Items: Hypertension, Stroke Paternal History Items: Cancer - Pancreatic, Heart Disease - Arrhythmia, - - Rheumatoid arthritis Review of Systems Constitutional: Denies: Chills, Fever, Weight Change HEENT: Denies: Head Aches, Sinus Congestion, Sinus Drainage Cardiovascular: Denies: Chest Pain, Palpitations Respiratory: Denies: Cough, Shortness of breath at rest, Sputum production Gastrointestinal: Denies: Abdominal Pain, Nausea, Vomiting Genitourinary: Denies: Dysuria Musculoskeletal: Reports: Joint Pain, Shoulder Pain. Denies: Joint Tenderness Skin: Denies: Rash, Wounds Neurological: Reports: Numbness, Tingling. Denies: Focal weakness Psychiatric: Denies: Anxiety, Depression, Homicidal Ideations, Suicidal Ideations Hematologic/ Lymphatic: Denies: Easy Bruising, Easy Bleeding VTE Information - Inpt Only VTE Present on Admission: No VTE Mechan Device Prophylaxis: SCD's VTE Pharm Prophylaxis ordered?: Yes Patient Problems: Active and Suspected Problems TIA (transient ischemic attack) (Acute) Subjective: Seated upright in ED bed, no acute distress, notes left upper extremity paresthesias continue to improve and now only in the fingertips of the left hand. Objective: Physical Examination: General: awake, alert, oriented x 3 and cooperative, seated upright in the ED bed in no apparent distress. Skin: normal color, turgor, no icterus, cyanosis. HEENT: AT/NC, EOMI, PERRLA, MMM, no carotid bruits or JVD noted. Lungs: CTA bilaterally, moderate effort, mild decrease BL bases, no rales, ronchi or wheezing. Heart: Regular rate and rhythm; no gallop, rub audible. Abdomen: soft, NTTP, ND, normal BS, no HSM. Extremities: no cyanosis, clubbing, or edema. Neurological: patient awake, alert, oriented x 3; cognitive function intact; pupils equally reactive to light and accomodation; cranial nerves II-XII grossly normal, moving all 4 extremities, no focal deficits, strength preserved, still mild sensation changes only to the left fingertips, negative Babinski, finger- nose and heel das appropriate bilaterally. Psychiatric: affect appears normal, no acute evidence of depressive or anxiety feelings. - Physical Exam Vitals/I&O's: Vital Signs Temp Pulse Resp BP Pulse Ox 98 F 60 14 142/83 H 99 07/22/19 17:51 07/22/19 18:39 07/22/19 18:39 07/22/19 18:39 07/22/19 18:39 Oxygen Delivery Method Room Air Weight: 175 lb Body Mass Index (BMI) 27.3 Finger Stick Blood Glucose 99 Laboratory Results 07/22/19 18:17: WBC 5.9, RBC 4.40, Hgb 14.1, Hct 40.4, MCV 91.8, MCH 32.0, MCHC 34.9, RDW Std Deviation 39.8, RDW Coeff of Maykel 12.0, Plt Count 180, MPV 10.5, Immature Gran % (Auto) 0.200, Neut % (Auto) 44.8 L, Lymph % (Auto) 42.3 H, Nolan % (Auto) 11.4 H, Eos % (Auto) 1.0, Baso % (Auto) 0.3, Absolute Neuts (auto) 2.6, Absolute Lymphs (auto) 2.49, Nucleated RBC % 0 07/22/19 18:17: PT 13.0, INR 1.0, APTT 24.7 07/22/19 18:17: Sodium 140, Potassium 3.3 L, Chloride 106, Carbon Dioxide 30.0, Anion Gap 4 L, BUN 17, Creatinine 1.00, Estim Creat Clear Calc 53.81, Est GFR (MDRD) Af Amer 72, Est GFR (MDRD) Non-Af 59 L, BUN/Creatinine Ratio 17.1, Glucose 100, Calcium 9.3, Troponin I < 0.015 07/22/19 18:33: POC Glucose 99 Current Medications Sodium Chloride () 1,000 mls @ 100 mls/hr IV .Q10H ONE Stop: 07/23/19 04:15 Last Admin: 07/22/19 18:42 Dose: 100 mls/hr Documented by: Assessment/Plan All Active Problems TIA (transient ischemic attack) (Acute) The patient is a 64 y/o F w/ PMHx: HTN, HLD, Rheumatoid arthritis, Hx Prior Global amnesia which lasted 4 hours with unremarkable neurological work-up felt secondary to HTN who presents to the [facility] ED on 07/22/19 with history of LUE paresthesias, started at ~ 1 pm specifically located in the L elbow with eventual inclusion of the forearm and hand with no additional neurological findings with elevated BP at that time, SBP in 190s. 1. Left upper extremity paresthesias concerning for CVA: Will admit to PCU, will obtain MRI Brain, CT head and CTA head and neck already performed with no acute findings or concerns, ECHO, PT/OT/Speech/Nutrition evaluation per protocol. Neurology consultation was obtained per ED upon presentation with stroke call with recommendation for continued TIA/CVA work-up. Will allow permissive HTN pending MRI brain, maintain on asa, add plavix to MRI brain with consideration of 90 days with then transition to single agent pending findings, increase statin w/ AM FLP, fall precautions. Mag, TSH, hemoglobin A1c requested. 2. Hypokalemia: Admission K+ 3.3, supplementation given, repeat level in AM. 3. Hypertension: We will hold regimen with permissive hypertension pending MRI brain as noted with PRN agents if necessary. 4. Hyperlipidemia: Will increase to high-dose statin, FLP in AM. 5. Rheumatoid arthritis: We will continue patient home folic acid, noted methotrexate dosing q. Wednesday. 6. DVT prophylaxis: Yina Resendiz. Code Visit OBSV E&M: 89109 Initial observation care L3
--- NOTE | 2019-07-22 19:13 | ED.DCSUM_ITS ---
- ER Visit Summary Date of Service: 07/22/19 Chief Complaint: [Hypertension and paresthesias to left arm] History of Present Illness: The patient is a 64 F [presents to the emergency department complaint of paresthesias in the left arm that started this afternoon around 1 PM. Patient states that she had some tingling initially around the left elbow and that is now progressed all the way down to the hand. He denies any trauma. Patient also has noticed that her blood pressure at home was in the 190 systolic. She denies any headache. Patient has history of hypertension and high cholesterol. No prior stroke history. She denies any chest pain or shortness of breath. Has visual changes or difficulty with speech. Has any weakness.] Physical Examination: [HEENT-PERRLA, EOMI. Cranial nerves II through XII grossly intact. TMs clear. Mucous membranes moist. No adenopathy. Cardiovascular-regular rate and rhythm without murmur or ectopy Lungs-clear to auscultation, chest wall stable without crepitus or subcu emphysema Abdomen-normoactive bowel sounds, soft, nontender, no rebound or rigidity, no peritoneal signs. Neuro hygh-[id number]-djjb and heel das testing within normal limits, negative Romberg, negative pronator, fundi benign. Extremities-intact ?4, normal range of motion, normal pulses, atraumatic] Test Results: [EKG obtained arrival shows sinus rhythm with a ventricular rate of 58 bpm with no acute ST segment changes. CT scan of the brain without contrast showed small vessel ischemia which is chronic and unchanged from prior. CT of the head and neck showed no acute occlusions. CBC with her showing a 5.9, hemoglobin 14, hematocrit 40, plates 180. Chemistries unremarkable. INR was 1.0. Troponin less than 0.015. EKG obtained showed sinus bradycardia with a ventricular rate of 58 bpm with no acute ST segment changes.] Emergency Department Course and Treatment: [Case was initially discussed with stroke neurologist who recommended admission and further stroke work-up. Patient will be discussed with hospitalist to evaluate patient for admission.] Treatment Plan: [Admit] Disposition: [Admit] Impression: [Hypertension CVA] This note was generated with [employer] software. It may contain incorrect words, spelling, and punctuation that were not noted in review of the chart prior to signing ED Disposition - Plan for ED Patient: Referrals: Fadumo Ruth MD [Primary Care Provider] -
[2019-07-22 21:35] LABS: Magnesium 2.3 mg/dL (1.6-2.6)
[2019-07-22] MEDS: Famotidine 20 MG Tablet PO (21:47)
[2019-07-22] MEDS: Atorvastatin Calcium 80 MG Tablet PO (21:47)
[2019-07-23] VITALS (10 sets, daily range): BP systolic 116–163; BP diastolic 59–78; PULSE 51–62; RESP 16; TEMP 36.7–36.9; O2SAT 97–99; BMI 28.1
[2019-07-23] MEDS: Acetaminophen 325 MG Tablet 650 MG PO (05:52)
[2019-07-23 06:32] LABS: Absolute Lymphocyte Count 1.86 X10^3/uL (0.83-4.51); Absolute Neutrophil Count 1.7 X10^3/uL (2.0-7.7); Basophil# 0.02 X10^3/uL; Basophil% 0.5 % (0-1); Eosinophil# 0.04 X10^3/uL; Hematocrit 33.4 % (37-47); Hemoglobin 11.5 g/dL (12.0-15.0); Lymphocyte # 1.86 X10^3/ul (4.0); Lymphocyte % 45.7 % (19-41); Mean Corp Hgb Conc 34.4 g/dL (32-36); Mean Corpuscular Hgb 31.3 pg (27.0-32.0); Mean Corpuscular Volume 90.8 fL (81-99); Mean Platelet Vol. 10.8 fl (6.2-12.0); Monocyte# 0.42 X10^3/uL; Monocyte% 10.3 % (0-10); NRBC Flagged by Analyzer 0 % (0-5); Neutrophil # 1.72 X10^3/uL (2.7-7.7); Neutrophil % 42.3 % (47-70); Platelet Count 146 K/mm3 (150-450); RBC Distribution Width SD 39.4 fl (35.1-43.9); Red Blood Count 3.68 M/mm3 (4.2-5.4); White Blood Count 4.1 K/mm3 (4.4-11.0)
[2019-07-23 06:57] LABS: Anion Gap 5 (5-15); BUN 11 mg/dL (7-18); BUN/Creat Ratio 18.4 RATIO (10-20); Calcium,Total 8.4 mg/dL (8.5-10.1); Chloride 114 mmol/L (98-107); Cholesterol 153 mg/dL (200); EST Glomerular Filtration Rate 106 mL/min (>60); Est Glom Filt Rate - Afr Amer 129 mL/min (>60); Estimated Creatinine Clearance 53.81 ml/min; Glucose 97 mg/dL (74-106); High Density Lipoprotein 46 mg/dL; Potassium 3.8 mmol/L (3.5-5.1); Sodium Level 145 mmol/L (136-145); Thyroid Stim Hormone (TSH) 2.24 uIU/mL (0.358-3.74); Triglycerides 88 mg/dL; Very Low Density Lipoprotein 18 mg/dL (5-40)
[2019-07-23 07:50] LABS: Hemoglobin A1c 5.7 % (4.2-6.3)
[2019-07-23] MEDS: 0.9% Normal Saline 1,000 ML 100 ML IV (08:00)
[2019-07-23] MEDS: Folic Acid 1 MG Tablet PO (08:27)
[2019-07-23] MEDS: Aspirin E.C. 81 MG Tablet PO (08:27)
[2019-07-23] MEDS: Famotidine 20 MG Tablet PO (08:28)
[2019-07-23] MEDS: Clopidogrel Bisulfate 75 MG Tablet PO (08:28)
--- NOTE | 2019-07-23 09:15 | MRI_ITS ---
STUDY: MRI BRAIN WITHOUT CONTRAST REASON FOR EXAM: Female, 64 years old. Left arm symptoms, stroke evaluation TECHNIQUE: Standardized multiplanar fat and water weighted pulse sequences were obtained. COMPARISON: 22 July 2019 03 January 2019 FINDINGS: Brain parenchyma is intact without focal lesions, mass effect, extra parenchymal fluid collections, hydrocephalus or herniation. Major vascular flow structures are intact. There is mild chronic small vessel ischemic change of white matter Craniocervical junction is unremarkable. MRI/Brain without Contrast IMPRESSION: 1. No acute findings, no acute ischemia. 2. Mild chronic white matter ischemic change. 3. No change since priors. Electronically Signed: Nayeli Wilcox, at 10:17 EST Tel , Service support ,
--- NOTE | 2019-07-23 09:41 | MRI_ITS ---
STUDY: MRI CERVICAL SPINE WITHOUT CONTRAST REASON FOR EXAM: Female, 64 years old. Left arm paresthesias, N/T, heaviness. TECHNIQUE: Standardized fat and water weighted pulse sequences were obtained in the sagittal and axial planes. COMPARISON: CTA neck 07/22/2019. FINDINGS: Normal foramen magnum and brainstem-cervical cord junction. Normal craniovertebral junction. Normal anterior atlantoaxial articulation. Normal odontoid process. Normal cervical lordosis. Normal vertebral bodies and posterior osseous elements. C2-3: Normal endplates. Normal disc height, signal and morphology. Normal central canal and intervertebral neural foramina. C3-4: Normal endplates. Normal disc height, signal and morphology. Normal central canal and intervertebral neural foramina. C4-5: Normal endplates. Normal disc height, signal and morphology. Normal central canal and intervertebral neural foramina. C5-6: Normal endplates. Minimal disc space height narrowing. Small posterior bulging disc. Normal central canal and intervertebral neural foramina. C6-7: Minimal anterior marginal spurs. Normal endplates. Moderate disc space height narrowing. Minimal posterior marginal spurs. Normal central canal and intervertebral neural foramina. C7-T1: Normal endplates. Normal disc height, signal and morphology. Normal central canal and intervertebral neural foramina. T1-T2: (Sagittal only). Normal endplates. Normal disc height and morphology. Normal central canal and intervertebral neural foramina. T2-T3: (Sagittal only). Anterior marginal spurs. Normal endplates. Mild disc space height narrowing. Normal disc morphology. Normal central canal and intervertebral neural foramina. T3-T4, T4-T5 and T5-T6: (Sagittal only). Normal endplates. Minimal disc space height narrowing. No ventral extradural defect. Normal central canal and intervertebral neural foramina. Normal cervical cord. Normal visualized soft tissue structures. MRI/Spine Cervical (Routine) IMPRESSION: 1. No MRI evidence of cervical extruded disc fragment, spinal stenosis or cervical nerve root displacement. 2. Moderate C6-C7 disc space height narrowing. 3. Mild C5-C6 disc space height narrowing with small posterior bulging disc. 4. Normal cervical spinal cord and the included portions of the upper thoracic spinal cord. 5. No significant interval changes when compared to CTA neck of 07/22/2019. Electronically Signed: George Baptiste MD at 15:50 EST , Service support ,
[2019-07-23] MEDS: 0.9% Saline Lock 10 ML Syringe IV (11:08)
--- NOTE | 2019-07-23 11:30 | DCINST_ITS ---
- Discharge Diagnoses Current Active Problems: Current Active and Chronic Problems Rheumatoid arthritis (Chronic) You will use the following diet at home:: No restrictions Discharge Activity: Return to Normal Activity Call your doctor if you observe: Shortness of breath, Dizziness, Fainting spells, Chest pain Allergies/Adverse Reactions: Allergies bacitracin [From Neosporin ([id number])] Allergy (Verified 07/22/19 17:53) Swelling bacitracin zinc [From Neosporin ([id number])] Allergy (Verified 07/22/19 17:53) Swelling clindamycin Allergy (Verified 07/22/19 17:53) Rash neomycin sulfate [From Neosporin ([id number])] Allergy (Verified 07/22/19 17:53) Swelling polymyxin B [From Neosporin ([id number])] Allergy (Verified 07/22/19 17:53) Swelling Medications to take at Discharge Simvastatin [Zocor] 20 mg PO QHS 01/11/15 Aspirin [Adult Low Dose Aspirin EC] 81 mg PO DAILY 01/02/19 Folic Acid 1 mg PO DAILY 01/02/19 Fosinopril Sodium 40 mg PO DAILY 01/02/19 Hydrochlorothiazide 12.5 mg PO DAILY 01/02/19 Methotrexate Sodium [Methotrexate] 15 mg PO WE 01/02/19 Multivit with Calcium,Iron,Min [Multiple Vitamins For Women] 1 ea PO DAILY 07/22/19 Primary Care Physician: Fadumo Ruth MD [Primary Care Provider] - Please follow up with your Primary Care Physician in: 1 Week Test Results: Test results from this visit will be discussed in further detail at your follow- up appointment, if applicable. Proposed Discharge Date: 07/23/19
--- NOTE | 2019-07-23 11:31 | PCM.DC.SUM ---
<Mer Caicedo - Last Filed: 07/23/19 11:38> Discharge Date and Diagnosis Date of Admission: 07/22/19 Date of Discharge: 07/23/19 - Primary Discharge Diagnosis Active and Suspected Problems 1. Left upper extremity paresthesias, suspected secondary to cervical radiculopathy-TIA/CVA ruled out 2. Hypertensive urgency 3. Hyperlipidemia 4. Rheumatoid arthritis - Secondary Discharge Diagnosis Chronic Problems Amnesia, global, transient (Chronic) Rheumatoid arthritis (Chronic) HTN (hypertension) (Chronic) Dyslipidemia (Chronic) Hospital Course and Treatment Imaging Results: Diagnostic Data Brain CT 07/22/19 18:15 IMPRESSION: Small vessel ischemia. N.B. : The above information has been verbally conveyed by Caroline Macias MD to Denisha Camacho MD, MD, on 07/22/2019 18:40:08 (ET). Electronically Signed: Caroline Macias MD at 18:41 EST Tel , Service support , ADDENDUM: 07/22/19 1848 IMPRESSION: Small vessel ischemia. N.B. : The above information has been verbally conveyed by Caroline Macias MD to Denisha Camacho MD, MD, on 07/22/2019 18:40:08 (ET). Electronically Signed: Caroline Macias MD at 18:41 EST Tel , Service support , Head/Neck CTA 07/22/19 18:17 IMPRESSION: Atherosclerosis with no associated hemodynamically significant stenosis. Electronically Signed: Caroline Macias MD at 18:57 EST Tel , Service support , ADDENDUM: 07/22/19 1912 IMPRESSION: Atherosclerosis with no associated hemodynamically significant stenosis. N.B. : The above information has been verbally conveyed by Caroline Macias MD to Denisha Camacho MD, MD, on 07/22/2019 19:05:51 (ET). Electronically Signed: Caroline Macias MD at 18:57 EST Tel , Service support , Chest X-Ray 07/22/19 18:57 IMPRESSION: No acute cardiopulmonary process. Electronically Signed: Caroline Macias MD at 19:35 EST Tel , Service support , Brain MRI 07/23/19 09:15 IMPRESSION: 1. No acute findings, no acute ischemia. 2. Mild chronic white matter ischemic change. 3. No change since priors. Electronically Signed: Nayeli Wilcox at 10:17 EST Tel , Service support , Operations: None Procedures: None Summary of Care Provided: The patient is a 64 year old F admitted 07/22/2019 due to left upper extremity paresthesias. 1. Left upper extremity paresthesias, suspected secondary to cervical radiculopathy-TIA/CVA ruled out. CT of head and CTA of head and neck unremarkable. Brain MRI shows no acute findings. Cervical spine MRI completed, report pending and will be reviewed prior to discharge. Patient does report a history of neck pain and left shoulder issues with recent steroid injection [address] Cabrera. Patient has no other neurologic symptoms or focal deficits. Suspect left arm paresthesias musculoskeletal in nature. Symptoms have currently resolved. Follow-up with primary care provider in 1 week. Follow-up with orthopedic medicine in 1 week as well. 2. Hypertensive urgency-blood pressure on admission 184/100 however patient reports checking her blood pressure at home prior to admission and blood pressure 190-200 systolically. Blood pressure has significantly improved during admission. Continue home ADITI inhibitor and HCTZ regimen. Recommend checking blood pressure twice daily at home and reporting findings to primary care provider for further monitoring. 3. Hyperlipidemia-continue statin. 4. Rheumatoid arthritis-continue home methotrexate regimen. Patient seen and examined prior to discharge. Physical assessment as noted below. Patient is stable for discharge with follow up recommendations as noted above. This patient was seen by YESICA Muñoz under the supervision of Dr. Lai. - Physical Exam Vitals/I&O's: Vital Signs Temp Pulse Resp BP Pulse Ox 98.5 F 51 L 16 128/68 H 98 07/23/19 08:00 07/23/19 08:00 07/23/19 08:00 07/23/19 08:00 07/23/19 08:00 Oxygen Flow Rate (L/min) 97 Oxygen Delivery Method Room Air Weight: 179 lb 10.828 oz Body Mass Index (BMI) 28.1 Finger Stick Blood Glucose 99 Intake and Output for Last 24 Hours 07/21/19 07/22/19 07/23/19 23:59 23:59 23:59 Intake Total 561.67 / 561.67 1480 / 1480 Balance 561.67 / 561.67 1480 / 1480 General: Alert, Oriented x3, Cooperative HEENT: Atraumatic, PERRLA, EOMI, Normocephalic Neck: Supple, No JVD, Negative Carotid Bruits Lungs: Clear to auscultation, Normal air movement Cardiovascular: Regular rate, Regular Rhythm, Normal S1, Normal S2, No murmurs Abdomen: Bowel Sounds Present, Soft, Non Tender, Non-Distended Extremities: No clubbing, No cyanosis, No edema, Capillary Refill Less than 3 Seconds Skin: No rashes, No breakdown Musculoskeletal: No Tenderness to Palpation of Joints or Extremities Neurological: Cranial nerves II-XII grossly intact, Neuro grossly intact Psych/Mental Status: Normal Affect, Appropriate Laboratory Results 07/22/19 18:17: WBC 5.9, RBC 4.40, Hgb 14.1, Hct 40.4, MCV 91.8, MCH 32.0, MCHC 34.9, RDW Std Deviation 39.8, RDW Coeff of Maykel 12.0, Plt Count 180, MPV 10.5, Immature Gran % (Auto) 0.200, Neut % (Auto) 44.8 L, Lymph % (Auto) 42.3 H, Lea % (Auto) 11.4 H, Eos % (Auto) 1.0, Baso % (Auto) 0.3, Absolute Neuts (auto) 2.6, Absolute Lymphs (auto) 2.49, Nucleated RBC % 0 07/22/19 18:17: PT 13.0, INR 1.0, APTT 24.7 07/22/19 18:17: Sodium 140, Potassium 3.3 L, Chloride 106, Carbon Dioxide 30.0, Anion Gap 4 L, BUN 17, Creatinine 1.00, Estim Creat Clear Calc 53.81, Est GFR (MDRD) Af Amer 72, Est GFR (MDRD) Non-Af 59 L, BUN/Creatinine Ratio 17.1, Glucose 100, Calcium 9.3, Troponin I < 0.015 07/22/19 18:17: Magnesium 2.3 07/22/19 18:33: POC Glucose 99 07/23/19 06:12: WBC 4.1 L, RBC 3.68 L, Hgb 11.5 L, Hct 33.4 L, MCV 90.8, MCH 31.3, MCHC 34.4, RDW Std Deviation 39.4, RDW Coeff of Maykel 12.0, Plt Count 146 L, MPV 10.8, Immature Gran % (Auto) 0.200, Neut % (Auto) 42.3 L, Lymph % (Auto) 45.7 H, Lea % (Auto) 10.3 H, Eos % (Auto) 1.0, Baso % (Auto) 0.5, Absolute Neuts (auto) 1.7 L, Absolute Lymphs (auto) 1.86, Nucleated RBC % 0 07/23/19 06:12: Sodium 145, Potassium 3.8, Chloride 114 H, Carbon Dioxide 26.0, Anion Gap 5, BUN 11, Creatinine 0.60, Estim Creat Clear Calc 53.81, Est GFR (MDRD) Af Amer 129, Est GFR (MDRD) Non-Af 106, BUN/Creatinine Ratio 18.4, Glucose 97, Calcium 8.4 L, Triglycerides 88, Cholesterol 153, LDL Cholesterol 89, VLDL Cholesterol 18, HDL Cholesterol 46, TSH 2.24 07/23/19 06:12: Hemoglobin A1c 5.7 Current Medications Acetaminophen (Tylenol) 650 mg PO Q6H PRN PRN PRN Reason: Pain Score 1-3/Temp > 100.7 F Last Admin: 07/23/19 05:52 Dose: 650 mg Documented by: Al Hydroxide/Mg Hydroxide (Mylanta Ii) 30 ml PO Q6H PRN PRN PRN Reason: Gastric Burning Albuterol Sulfate (Ventolin Aerosols) 2.5 mg INHALATION Q2H PRN PRN PRN Reason: SOB/Wheezing Aspirin (Ecotrin) 81 mg PO DAILY [facility] Last Admin: 07/23/19 08:27 Dose: 81 mg Documented by: Atorvastatin Calcium (Lipitor) 80 mg PO QHS [facility] Last Admin: 07/22/19 21:47 Dose: 80 mg Documented by: Clopidogrel Bisulfate (Plavix) 75 mg PO DAILY [facility] Last Admin: 07/23/19 08:28 Dose: 75 mg Documented by: Dextrose (D50w Syringe) 0 gm IV X1 PRN; Protocol PRN Reason: Hypoglycemia Enoxaparin Sodium (Lovenox) 40 mg SC DAILY [facility] Last Admin: 07/23/19 11:00 Dose: Not Given Documented by: Famotidine (Pepcid) 20 mg PO BID [facility] Last Admin: 07/23/19 08:28 Dose: 20 mg Documented by: Folic Acid (Folic Acid) 1 mg PO DAILY [facility] Last Admin: 07/23/19 08:27 Dose: 1 mg Documented by: Glucagon () 1 mg IM .X1 PRN PRN Reason: Hypoglycemia Guaifenesin (Robitussin) 5 ml PO Q4H PRN PRN PRN Reason: COUGH Hydralazine HCl (Apresoline Iv) 5 mg IV Q30M PRN PRN Reason: sbp > 220/120 Sodium Chloride () 1,000 mls @ 100 mls/hr IV .Q10H [facility] Last Admin: 07/23/19 08:00 Dose: 100 mls/hr Documented by: Labetalol HCl (Trandate) 10 mg IV Q10M PRN PRN Reason: MAINTAIN BP < 220/120 Stop: 07/23/19 21:19 Magnesium Hydroxide (Milk Of Magnesia) 30 ml PO DAILY PRN PRN PRN Reason: Constipation Melatonin (Melatonin) 3 mg PO QHS PRN PRN PRN Reason: INSOMNIA Menthol (Bengay Vanishing Scent) 1 applic TOPICAL 4X/DAY PRN PRN PRN Reason: sore shoulder Last Admin: 07/23/19 11:08 Dose: 1 applic Documented by: Ondansetron HCl (Zofran) 4 mg IV Q8H PRN PRN PRN Reason: NAUSEA/VOMITING Prochlorperazine Edisylate (Compazine Iv) 5 mg IV Q4H PRN PRN PRN Reason: Breakthrough Nausea/Vomiting Sodium Chloride () 10 - 40 ml IV UD PRN PRN Reason: SALINE FLUSH Last Admin: 07/23/19 11:08 Dose: 10 ml Documented by: Throat Lozenges (Cepacol Sore Throat Lozenge) 1 lozenge MUCOUS MEM Q2H PRN PRN PRN Reason: Sore Throat/Cough Discharge Diet: No Restrictions Discharge Activity: Return to Normal Activity Call your doctor if you observe: Shortness of breath, Dizziness, Fainting spells, Chest pain Home Medications: Medications to take at Discharge Simvastatin [Zocor] 20 mg PO QHS 01/11/15 Aspirin [Adult Low Dose Aspirin EC] 81 mg PO DAILY 01/02/19 Folic Acid 1 mg PO DAILY 01/02/19 Fosinopril Sodium 40 mg PO DAILY 01/02/19 Hydrochlorothiazide 12.5 mg PO DAILY 01/02/19 Methotrexate Sodium [Methotrexate] 15 mg PO WE 01/02/19 Multivit with Calcium,Iron,Min [Multiple Vitamins For Women] 1 ea PO DAILY 07/22/19 Primary Care Physician: Fadumo Ruth MD [Primary Care Provider] - Please follow up with your Primary Care Physician in: 1 Week Disposition: Home Minutes spent on discharge:: 35 Patient Condition:: Stable Medical Necessity - Tobacco Use Smoking Status: Never smoker Tobacco Use: Non-smoker Meaningful Use Info Meaningful Use Diagnoses (Choose all that apply): None applicable <Azam Lai - Last Filed: 07/23/19 14:12> Discharge Date and Diagnosis - Secondary Discharge Diagnosis Chronic Problems Amnesia, global, transient (Chronic) Rheumatoid arthritis (Chronic) HTN (hypertension) (Chronic) Dyslipidemia (Chronic) Hospital Course and Treatment Imaging Results: 07/23/19 09:15 Brain without Contrast [MRI] Urgent 07/23/19 09:41 MRI Cervical [Spine Cervical (Routine)] [MRI] Urgent Summary of Care Provided: This patient was seen in conjunction with YESICA Muñoz . I have independently interviewed and examined the patient and reviewed pertinent historical, laboratory, and other data. Please refer to YESICA Muñoz note for details of this patient's presentation, findings, and recommendations. I have reviewed YESICA Muñoz note and concur with documented findings. In brief, patient is a 64-year-old lady who presented with left upper extremity paresthesias and was found to have markedly elevated blood pressure. Patient was admitted to a monitored bed for work-up. Acute CVA was ruled out. Patient blood pressure control had improved at the time of discharge. She was instructed to follow-up with PCP for subsequent care following her discharge Hospital course: As documented above by Mer Caicedo, MANAGER [employer]?C. - Physical Exam Vitals/I&O's: Vital Signs Temp Pulse Resp BP Pulse Ox 98.4 F 57 L 16 123/67 H 98 07/23/19 12:00 07/23/19 12:00 07/23/19 12:00 07/23/19 12:00 07/23/19 12:00 Oxygen Flow Rate (L/min) 97 Oxygen Delivery Method Room Air Weight: 81.5 kg Body Mass Index (BMI) 28.1 Finger Stick Blood Glucose 99 Intake and Output for Last 24 Hours 07/21/19 07/22/19 07/23/19 23:59 23:59 23:59 Intake Total 561.67 / 561.67 1969 Balance 561.67 / 561.67 1969 Laboratory Results 07/22/19 18:17: WBC 5.9, RBC 4.40, Hgb 14.1, Hct 40.4, MCV 91.8, MCH 32.0, MCHC 34.9, RDW Std Deviation 39.8, RDW Coeff of Maykel 12.0, Plt Count 180, MPV 10.5, Immature Gran % (Auto) 0.200, Neut % (Auto) 44.8 L, Lymph % (Auto) 42.3 H, Lea % (Auto) 11.4 H, Eos % (Auto) 1.0, Baso % (Auto) 0.3, Absolute Neuts (auto) 2.6, Absolute Lymphs (auto) 2.49, Nucleated RBC % 0 07/22/19 18:17: PT 13.0, INR 1.0, APTT 24.7 07/22/19 18:17: Sodium 140, Potassium 3.3 L, Chloride 106, Carbon Dioxide 30.0, Anion Gap 4 L, BUN 17, Creatinine 1.00, Estim Creat Clear Calc 53.81, Est GFR (MDRD) Af Amer 72, Est GFR (MDRD) Non-Af 59 L, BUN/Creatinine Ratio 17.1, Glucose 100, Calcium 9.3, Troponin I < 0.015 07/22/19 18:17: Magnesium 2.3 07/22/19 18:33: POC Glucose 99 07/23/19 06:12: WBC 4.1 L, RBC 3.68 L, Hgb 11.5 L, Hct 33.4 L, MCV 90.8, MCH 31.3, MCHC 34.4, RDW Std Deviation 39.4, RDW Coeff of Maykel 12.0, Plt Count 146 L, MPV 10.8, Immature Gran % (Auto) 0.200, Neut % (Auto) 42.3 L, Lymph % (Auto) 45.7 H, Lea % (Auto) 10.3 H, Eos % (Auto) 1.0, Baso % (Auto) 0.5, Absolute Neuts (auto) 1.7 L, Absolute Lymphs (auto) 1.86, Nucleated RBC % 0 07/23/19 06:12: Sodium 145, Potassium 3.8, Chloride 114 H, Carbon Dioxide 26.0, Anion Gap 5, BUN 11, Creatinine 0.60, Estim Creat Clear Calc 53.81, Est GFR (MDRD) Af Amer 129, Est GFR (MDRD) Non-Af 106, BUN/Creatinine Ratio 18.4, Glucose 97, Calcium 8.4 L, Triglycerides 88, Cholesterol 153, LDL Cholesterol 89, VLDL Cholesterol 18, HDL Cholesterol 46, TSH 2.24 07/23/19 06:12: Hemoglobin A1c 5.7 Current Medications Acetaminophen (Tylenol) 650 mg PO Q6H PRN PRN PRN Reason: Pain Score 1-3/Temp > 100.7 F Last Admin: 07/23/19 05:52 Dose: 650 mg Documented by: Al Hydroxide/Mg Hydroxide (Mylanta Ii) 30 ml PO Q6H PRN PRN PRN Reason: Gastric Burning Albuterol Sulfate (Ventolin Aerosols) 2.5 mg INHALATION Q2H PRN PRN PRN Reason: SOB/Wheezing Aspirin (Ecotrin) 81 mg PO DAILY [facility] Last Admin: 07/23/19 08:27 Dose: 81 mg Documented by: Atorvastatin Calcium (Lipitor) 80 mg PO QHS [facility] Last Admin: 07/22/19 21:47 Dose: 80 mg Documented by: Clopidogrel Bisulfate (Plavix) 75 mg PO DAILY [facility] Last Admin: 07/23/19 08:28 Dose: 75 mg Documented by: Dextrose (D50w Syringe) 0 gm IV X1 PRN; Protocol PRN Reason: Hypoglycemia Enoxaparin Sodium (Lovenox) 40 mg SC DAILY [facility] Last Admin: 07/23/19 11:00 Dose: Not Given Documented by: Famotidine (Pepcid) 20 mg PO BID [facility] Last Admin: 07/23/19 08:28 Dose: 20 mg Documented by: Folic Acid (Folic Acid) 1 mg PO DAILY [facility] Last Admin: 07/23/19 08:27 Dose: 1 mg Documented by: Glucagon () 1 mg IM .X1 PRN PRN Reason: Hypoglycemia Guaifenesin (Robitussin) 5 ml PO Q4H PRN PRN PRN Reason: COUGH Hydralazine HCl (Apresoline Iv) 5 mg IV Q30M PRN PRN Reason: sbp > 220/120 Sodium Chloride () 1,000 mls @ 100 mls/hr IV .Q10H [facility] Last Admin: 07/23/19 08:00 Dose: 100 mls/hr Documented by: Labetalol HCl (Trandate) 10 mg IV Q10M PRN PRN Reason: MAINTAIN BP < 220/120 Stop: 07/23/19 21:19 Magnesium Hydroxide (Milk Of Magnesia) 30 ml PO DAILY PRN PRN PRN Reason: Constipation Melatonin (Melatonin) 3 mg PO QHS PRN PRN PRN Reason: INSOMNIA Menthol (Bengay Vanishing Scent) 1 applic TOPICAL 4X/DAY PRN PRN PRN Reason: sore shoulder Last Admin: 07/23/19 11:08 Dose: 1 applic Documented by: Ondansetron HCl (Zofran) 4 mg IV Q8H PRN PRN PRN Reason: NAUSEA/VOMITING Prochlorperazine Edisylate (Compazine Iv) 5 mg IV Q4H PRN PRN PRN Reason: Breakthrough Nausea/Vomiting Sodium Chloride () 10 - 40 ml IV UD PRN PRN Reason: SALINE FLUSH Last Admin: 07/23/19 11:08 Dose: 10 ml Documented by: Throat Lozenges (Cepacol Sore Throat Lozenge) 1 lozenge MUCOUS MEM Q2H PRN PRN PRN Reason: Sore Throat/Cough Code Visit OBSV E&M: [id number] Observation care discharge
--- NOTE | 2019-07-23 15:40 | NURSING ---
Discharge teaching complete. Instructed patient to take her bp medications when she gets home and to contact her PCP tomorrow to follow-up regarding her cervical MRI. Patient voices understanding of same.
== END 2019-07-23 11:30 | disposition home or self-care (01) ==
LOC: ED 18:20 → PCU 19:41
PROVIDERS: Admitting Provider Family Medicine; Emergency Provider Emergency Medicine; PCP Family Medicine; Visit Provider Internal Medicine
DX: R20.2 Paresthesia of skin (principal); I16.0 Hypertensive urgency; R29.701 NIHSS score 1; M06.9 Rheumatoid arthritis, unspecified; E78.5 Hyperlipidemia, unspecified; I10 Essential (primary) hypertension; E87.6 Hypokalemia; Z79.899 Other long term (current) drug therapy; Z79.82 Long term (current) use of aspirin
CPT/HCPCS: 36415; 70450; 70496; 70498; 70551; 71045; 72141; 80048; 80061; 82962; 83036; 83735; 84443; 84484; 85025; 85610; 85730; 92610; 93005; 94762; 96360; 96361; 97161; 97165; 97802; 99218; 99251; 99285; J7030; Q9967; A4216; G0378; G0463

== ENCOUNTER → 2019-08-25 11:46 | Outpatient (CLI) | payer MEDICARE, OTHER, SELFPAY ==
[2019-07-23 15:28] VITALS: BMI 28.1
[2019-08-25 14:16] LABS: Absolute Lymphocyte Count 1.77 X10^3/uL (0.83-4.51); Absolute Neutrophil Count 2.2 X10^3/uL (2.0-7.7); Basophil# 0.03 X10^3/uL; Basophil% 0.7 % (0-1); Eosinophil# 0.04 X10^3/uL; Eosinophils% 0.9 % (0-5); Hematocrit 41.3 % (37-47); Hemoglobin 13.9 g/dL (12.0-15.0); Lymphocyte # 1.77 X10^3/ul (4.0); Lymphocyte % 39.1 % (19-41); Mean Corp Hgb Conc 33.7 g/dL (32-36); Mean Corpuscular Hgb 31.1 pg (27.0-32.0); Mean Corpuscular Volume 92.4 fL (81-99); Mean Platelet Vol. 11.9 fl (6.2-12.0); Monocyte# 0.46 X10^3/uL; Monocyte% 10.2 % (0-10); NRBC Flagged by Analyzer 0 % (0-5); Neutrophil # 2.22 X10^3/uL (2.7-7.7); Neutrophil % 48.9 % (47-70); Platelet Count 155 K/mm3 (150-450); RBC Distribution Width CV 12.2 % (11.6-14.6); RBC Distribution Width SD 41.4 fl (35.1-43.9); Red Blood Count 4.47 M/mm3 (4.2-5.4); White Blood Count 4.5 K/mm3 (4.4-11.0)
[2019-08-25 14:44] LABS: ALB/GLOB Ratio 1.2 RATIO (0.9-2.4); AST(SGOT) 19 U/L (15-37); Alanine Aminotransfer ALT/SGPT 29 U/L (13-56); Albumin, Serum 3.8 g/dL (3.2-5.0); Alkaline Phosphatase 79 U/L (45-117); Anion Gap 5 (5-15); BUN 14 mg/dL (7-18); BUN/Creat Ratio 20.3 RATIO (10-20); Calcium,Total 8.9 mg/dL (8.5-10.1); Chloride 107 mmol/L (98-107); Creatinine, Serum 0.69 mg/dL (0.55-1.02); EST Glomerular Filtration Rate 90 mL/min (>60); Est Glom Filt Rate - Afr Amer 109 mL/min (>60); Globulin 3.3 g/dL (2.2-4.2); Glucose 95 mg/dL (74-106); Potassium 3.7 mmol/L (3.5-5.1); Protein, Total 7.1 g/dL (6.4-8.2); Sodium Level 139 mmol/L (136-145)
== END ==
PROVIDERS: PCP Family Medicine; Referring Provider Internal Medicine Rheumatology; Visit Provider Internal Medicine Rheumatology
DX: M06.4 Inflammatory polyarthropathy (principal); M19.072 Primary osteoarthritis, left ankle and foot; I10 Essential (primary) hypertension; E78.5 Hyperlipidemia, unspecified; Z79.899 Other long term (current) drug therapy
CPT/HCPCS: 36415; 80053; 85025

== ENCOUNTER → 2019-11-22 11:21 | Outpatient (CLI) | payer MEDICARE, OTHER, SELFPAY ==
[2019-07-23 15:28] VITALS: BMI 28.1
[2019-11-22 12:36] LABS: Absolute Lymphocyte Count 1.81 X10^3/uL (0.83-4.51); Absolute Neutrophil Count 2.7 X10^3/uL (2.0-7.7); Basophil# 0.02 X10^3/uL; Basophil% 0.4 % (0-1); Eosinophil# 0.06 X10^3/uL; Eosinophils% 1.2 % (0-5); Hematocrit 41.7 % (37-47); Hemoglobin 14.1 g/dL (12.0-15.0); Lymphocyte # 1.81 X10^3/ul (4.0); Lymphocyte % 35.3 % (19-41); Mean Corp Hgb Conc 33.8 g/dL (32-36); Mean Corpuscular Hgb 32.3 pg (27.0-32.0); Mean Corpuscular Volume 95.4 fL (81-99); Mean Platelet Vol. 11.3 fl (6.2-12.0); Monocyte# 0.51 X10^3/uL; Monocyte% 9.9 % (0-10); NRBC Flagged by Analyzer 0 % (0-5); Neutrophil # 2.72 X10^3/uL (2.7-7.7); Platelet Count 166 K/mm3 (150-450); RBC Distribution Width SD 41.1 fl (35.1-43.9); Red Blood Count 4.37 M/mm3 (4.2-5.4); White Blood Count 5.1 K/mm3 (4.4-11.0)
[2019-11-22 13:12] LABS: ALB/GLOB Ratio 1.1 RATIO (0.9-2.4); AST(SGOT) 22 U/L (15-37); Alanine Aminotransfer ALT/SGPT 22 U/L (13-56); Albumin, Serum 3.8 g/dL (3.2-5.0); Alkaline Phosphatase 81 U/L (45-117); Anion Gap 6 (5-15); BUN 15 mg/dL (7-18); BUN/Creat Ratio 20.9 RATIO (10-20); Calcium,Total 9.1 mg/dL (8.5-10.1); Chloride 104 mmol/L (98-107); Creatinine, Serum 0.72 mg/dL (0.55-1.02); EST Glomerular Filtration Rate 86 mL/min (>60); Est Glom Filt Rate - Afr Amer 104 mL/min (>60); Globulin 3.4 g/dL (2.2-4.2); Glucose 82 mg/dL (74-106); Potassium 3.5 mmol/L (3.5-5.1); Protein, Total 7.2 g/dL (6.4-8.2); Sodium Level 139 mmol/L (136-145)
== END ==
PROVIDERS: PCP Family Medicine; Referring Provider Internal Medicine Rheumatology; Visit Provider Internal Medicine Rheumatology
DX: M06.4 Inflammatory polyarthropathy (principal); Z79.899 Other long term (current) drug therapy; M19.072 Primary osteoarthritis, left ankle and foot; I10 Essential (primary) hypertension; E78.5 Hyperlipidemia, unspecified
CPT/HCPCS: 36415; 80053; 85025

== ENCOUNTER → 2020-02-23 11:30 | Outpatient (CLI) | payer MEDICARE, OTHER, SELFPAY ==
[2019-07-23 15:28] VITALS: BMI 28.1
[2020-02-23 15:19] LABS: Absolute Lymphocyte Count 2.15 X10^3/uL (0.83-4.51); Absolute Neutrophil Count 2.9 X10^3/uL (2.0-7.7); Basophil# 0.03 X10^3/uL; Basophil% 0.5 % (0-1); Eosinophil# 0.04 X10^3/uL; Eosinophils% 0.7 % (0-5); Hematocrit 39.8 % (37-47); Hemoglobin 12.9 g/dL (12.0-15.0); Lymphocyte # 2.15 X10^3/ul (4.0); Lymphocyte % 37.4 % (19-41); Mean Corp Hgb Conc 32.4 g/dL (32-36); Mean Corpuscular Hgb 31.9 pg (27.0-32.0); Mean Corpuscular Volume 98.5 fL (81-99); Mean Platelet Vol. 11.5 fl (6.2-12.0); Monocyte# 0.59 X10^3/uL; Monocyte% 10.3 % (0-10); NRBC Flagged by Analyzer 0 % (0-5); Neutrophil # 2.93 X10^3/uL (2.7-7.7); Neutrophil % 50.9 % (47-70); Platelet Count 177 K/mm3 (150-450); RBC Distribution Width CV 12.5 % (11.6-14.6); RBC Distribution Width SD 44.8 fl (35.1-43.9); Red Blood Count 4.04 M/mm3 (4.2-5.4); White Blood Count 5.8 K/mm3 (4.4-11.0)
[2020-02-23 15:32] LABS: ALB/GLOB Ratio 1.2 RATIO (0.9-2.4); AST(SGOT) 22 U/L (15-37); Alanine Aminotransfer ALT/SGPT 29 U/L (13-56); Albumin, Serum 3.7 g/dL (3.2-5.0); Alkaline Phosphatase 75 U/L (45-117); Anion Gap 5 (5-15); BUN 13 mg/dL (7-18); BUN/Creat Ratio 19.5 RATIO (10-20); Calcium,Total 8.9 mg/dL (8.5-10.1); Chloride 110 mmol/L (98-107); Creatinine, Serum 0.67 mg/dL (0.55-1.02); EST Glomerular Filtration Rate 94 mL/min (>60); Est Glom Filt Rate - Afr Amer 114 mL/min (>60); Globulin 3.1 g/dL (2.2-4.2); Glucose 76 mg/dL (74-106); Potassium 3.5 mmol/L (3.5-5.1); Protein, Total 6.8 g/dL (6.4-8.2); Sodium Level 143 mmol/L (136-145)
== END ==
PROVIDERS: PCP Family Medicine; Referring Provider Internal Medicine Rheumatology; Visit Provider Internal Medicine Rheumatology
DX: M06.4 Inflammatory polyarthropathy (principal); M19.072 Primary osteoarthritis, left ankle and foot; I10 Essential (primary) hypertension; E78.5 Hyperlipidemia, unspecified; Z79.899 Other long term (current) drug therapy
CPT/HCPCS: 36415; 80053; 85025

== ENCOUNTER → 2020-03-04 12:41 | Outpatient (CLI) | payer MEDICARE, OTHER, SELFPAY ==
[2019-07-23 15:28] VITALS: BMI 28.1
--- NOTE | 2020-03-04 12:44 | RAD_ITS ---
STUDY: X-RAY - LUMBAR SPINE REASON FOR EXAM: Female, 65 years old. lumbar strain TECHNIQUE: 5 view(s) of the lumbar spine were obtained. COMPARISON: None FINDINGS: Normal lumbar lordosis. There is a levoscoliosis of the lumbar spine. There is a normal alignment of the vertebrae. Degenerative disc disease at the L4-5 level. Fallopian tube clips. Vascular calcifications. RAD/L/S Spine Min 4 Views IMPRESSION: No acute osseous injury is evident. If there is further clinical concern for a radiographically occult spinal fracture, consider CT correlation if possible. Electronically Signed: Neal Buck MD at 22:51 EDT Tel , Service support ,
== END ==
PROVIDERS: PCP Family Medicine; Referring Provider Family Medicine; Visit Provider Family Medicine
DX: S39.012A Strain of muscle, fascia and tendon of lower back, initial encounter (principal)
CPT/HCPCS: 72110

== ENCOUNTER → 2020-04-01 10:44 | Outpatient (CLI) | payer MEDICARE, OTHER, SELFPAY ==
[2019-07-23 15:28] VITALS: BMI 28.1
[2020-04-01 13:17] LABS: AST(SGOT) 19 U/L (15-37); Alanine Aminotransfer ALT/SGPT 24 U/L (13-56); Anion Gap 5 (5-15); BUN 13 mg/dL (7-18); BUN/Creat Ratio 21.3 RATIO (10-20); Calcium,Total 9.1 mg/dL (8.5-10.1); Chloride 106 mmol/L (98-107); Cholesterol 166 mg/dL (200); Creatinine, Serum 0.61 mg/dL (0.55-1.02); EST Glomerular Filtration Rate 104 mL/min (>60); Est Glom Filt Rate - Afr Amer 126 mL/min (>60); Glucose 78 mg/dL (74-106); High Density Lipoprotein 65 mg/dL; Potassium 3.2 mmol/L (3.5-5.1); Prolactin 9.2 ng/mL; Sodium Level 141 mmol/L (136-145); Thyroid Stim Hormone (TSH) 1.26 uIU/mL (0.358-3.74); Triglycerides 87 mg/dL; Very Low Density Lipoprotein 17 mg/dL (5-40)
== END ==
PROVIDERS: PCP Family Medicine; Visit Provider Family Medicine
DX: E78.00 Pure hypercholesterolemia, unspecified (principal); E55.9 Vitamin D deficiency, unspecified; E23.7 Disorder of pituitary gland, unspecified; I10 Essential (primary) hypertension
CPT/HCPCS: 36415; 80048; 80061; 84146; 84443; 84450; 84460

== ENCOUNTER → 2020-05-09 09:26 | Outpatient (CLI) | payer MEDICARE, OTHER, SELFPAY ==
[2019-07-23 15:28] VITALS: BMI 28.1
[2020-05-09 10:17] LABS: Absolute Lymphocyte Count 2.07 X10^3/uL (0.83-4.51); Absolute Neutrophil Count 2.9 X10^3/uL (2.0-7.7); Basophil# 0.03 X10^3/uL; Basophil% 0.5 % (0-1); Eosinophil# 0.06 X10^3/uL; Eosinophils% 1.1 % (0-5); Hematocrit 39.5 % (37-47); Hemoglobin 12.9 g/dL (12.0-15.0); Lymphocyte # 2.07 X10^3/ul (4.0); Lymphocyte % 36.8 % (19-41); Mean Corp Hgb Conc 32.7 g/dL (32-36); Mean Corpuscular Hgb 32.3 pg (27.0-32.0); Mean Corpuscular Volume 98.8 fL (81-99); Mean Platelet Vol. 10.4 fl (6.2-12.0); Monocyte# 0.57 X10^3/uL; Monocyte% 10.1 % (0-10); NRBC Flagged by Analyzer 0 % (0-5); Neutrophil # 2.86 X10^3/uL (2.7-7.7); Platelet Count 145 K/mm3 (150-450); RBC Distribution Width CV 12.3 % (11.6-14.6); RBC Distribution Width SD 44.3 fl (35.1-43.9); White Blood Count 5.6 K/mm3 (4.4-11.0)
[2020-05-09 10:53] LABS: ALB/GLOB Ratio 1.1 RATIO (0.9-2.4); AST(SGOT) 26 U/L (15-37); Alanine Aminotransfer ALT/SGPT 27 U/L (13-56); Albumin, Serum 3.5 g/dL (3.2-5.0); Alkaline Phosphatase 77 U/L (45-117); Anion Gap 5 (5-15); BUN 16 mg/dL (7-18); BUN/Creat Ratio 23.5 RATIO (10-20); Calcium,Total 8.7 mg/dL (8.5-10.1); Chloride 107 mmol/L (98-107); Creatinine, Serum 0.68 mg/dL (0.55-1.02); EST Glomerular Filtration Rate 91 mL/min (>60); Est Glom Filt Rate - Afr Amer 111 mL/min (>60); Globulin 3.3 g/dL (2.2-4.2); Glucose 87 mg/dL (74-106); Potassium 3.6 mmol/L (3.5-5.1); Protein, Total 6.8 g/dL (6.4-8.2); Sodium Level 138 mmol/L (136-145)
== END ==
PROVIDERS: PCP Family Medicine; Referring Provider Internal Medicine Rheumatology; Visit Provider Internal Medicine Rheumatology
DX: M06.4 Inflammatory polyarthropathy (principal); Z79.899 Other long term (current) drug therapy; M19.072 Primary osteoarthritis, left ankle and foot; I10 Essential (primary) hypertension; E78.5 Hyperlipidemia, unspecified; E55.9 Vitamin D deficiency, unspecified
CPT/HCPCS: 36415; 80053; 82306; 85025

== ENCOUNTER → 2020-08-05 13:16 | Outpatient (CLI) | payer MEDICARE, OTHER, SELFPAY ==
[2019-07-23 15:28] VITALS: BMI 28.1
[2020-08-05 15:20] LABS: Absolute Lymphocyte Count 2.08 X10^3/uL (0.83-4.51); Absolute Neutrophil Count 3.3 X10^3/uL (2.0-7.7); Basophil# 0.04 X10^3/uL; Basophil% 0.7 % (0-1); Eosinophil# 0.11 X10^3/uL; Eosinophils% 1.8 % (0-5); Hematocrit 37.9 % (37-47); Hemoglobin 13.2 g/dL (12.0-15.0); Lymphocyte # 2.08 X10^3/ul (4.0); Lymphocyte % 33.8 % (19-41); Mean Corp Hgb Conc 34.8 g/dL (32-36); Mean Corpuscular Hgb 32.9 pg (27.0-32.0); Mean Corpuscular Volume 94.5 fL (81-99); Mean Platelet Vol. 11.7 fl (6.2-12.0); Monocyte# 0.56 X10^3/uL; Monocyte% 9.1 % (0-10); NRBC Flagged by Analyzer 0 % (0-5); Neutrophil # 3.34 X10^3/uL (2.7-7.7); Neutrophil % 54.3 % (47-70); Platelet Count 171 K/mm3 (150-450); RBC Distribution Width SD 41.1 fl (35.1-43.9); Red Blood Count 4.01 M/mm3 (4.2-5.4); White Blood Count 6.2 K/mm3 (4.4-11.0)
[2020-08-05 15:44] LABS: ALB/GLOB Ratio 1.1 RATIO (0.9-2.4); AST(SGOT) 22 U/L (15-37); Alanine Aminotransfer ALT/SGPT 22 U/L (13-56); Albumin, Serum 3.6 g/dL (3.2-5.0); Alkaline Phosphatase 84 U/L (45-117); Anion Gap 8 (5-15); BUN 12 mg/dL (7-18); Calcium,Total 9.1 mg/dL (8.5-10.1); Chloride 105 mmol/L (98-107); Creatinine, Serum 0.75 mg/dL (0.55-1.02); EST Glomerular Filtration Rate 82 mL/min (>60); Est Glom Filt Rate - Afr Amer 99 mL/min (>60); Globulin 3.2 g/dL (2.2-4.2); Glucose 80 mg/dL (74-106); Potassium 3.3 mmol/L (3.5-5.1); Protein, Total 6.8 g/dL (6.4-8.2); Sodium Level 142 mmol/L (136-145)
== END ==
PROVIDERS: PCP Family Medicine; Referring Provider Internal Medicine Rheumatology; Visit Provider Internal Medicine Rheumatology
DX: M06.4 Inflammatory polyarthropathy (principal); M19.072 Primary osteoarthritis, left ankle and foot; I10 Essential (primary) hypertension; E78.5 Hyperlipidemia, unspecified; Z79.899 Other long term (current) drug therapy
CPT/HCPCS: 36415; 80053; 85025

== ENCOUNTER → 2020-11-01 08:54 | Outpatient (CLI) | payer MEDICARE, OTHER, SELFPAY ==
[2019-07-23 15:28] VITALS: BMI 28.1
[2020-11-01 12:36] LABS: Absolute Lymphocyte Count 1.66 X10^3/uL (0.83-4.51); Basophil# 0.03 X10^3/uL; Basophil% 0.7 % (0-1); Eosinophil# 0.12 X10^3/uL; Eosinophils% 2.8 % (0-5); Hematocrit 42.2 % (37-47); Hemoglobin 13.8 g/dL (12.0-15.0); Lymphocyte # 1.66 X10^3/ul (0.83-4.51); Lymphocyte % 39.2 % (19-41); Mean Corp Hgb Conc 32.7 g/dL (32-36); Mean Corpuscular Hgb 30.9 pg (27.0-32.0); Mean Corpuscular Volume 94.6 fL (81-99); Mean Platelet Vol. 11.8 fl (6.2-12.0); Monocyte# 0.41 X10^3/uL; Monocyte% 9.7 % (0-10); NRBC Flagged by Analyzer 0 % (0-5); Neutrophil # 2.01 X10^3/uL (2.7-7.7); Neutrophil % 47.4 % (47-70); Platelet Count 157 K/mm3 (150-450); RBC Distribution Width CV 11.9 % (11.6-14.6); RBC Distribution Width SD 41.1 fl (35.1-43.9); Red Blood Count 4.46 M/mm3 (4.2-5.4); White Blood Count 4.2 K/mm3 (4.4-11.0)
[2020-11-01 12:59] LABS: ALB/GLOB Ratio 1.1 RATIO (0.9-2.4); AST(SGOT) 22 U/L (15-37); Alanine Aminotransfer ALT/SGPT 24 U/L (13-56); Albumin, Serum 3.7 g/dL (3.2-5.0); Alkaline Phosphatase 83 U/L (45-117); Anion Gap 5 (5-15); BUN 14 mg/dL (7-18); BUN/Creat Ratio 22.7 RATIO (10-20); Chloride 107 mmol/L (98-107); Creatinine, Serum 0.62 mg/dL (0.55-1.02); EST Glomerular Filtration Rate 103 mL/min (>60); Est Glom Filt Rate - Afr Amer 124 mL/min (>60); Globulin 3.3 g/dL (2.2-4.2); Glucose 60 mg/dL (74-106); Potassium 3.4 mmol/L (3.5-5.1); Sodium Level 142 mmol/L (136-145)
== END ==
PROVIDERS: PCP Family Medicine; Referring Provider Internal Medicine Rheumatology; Visit Provider Internal Medicine Rheumatology
DX: M06.4 Inflammatory polyarthropathy (principal); M19.072 Primary osteoarthritis, left ankle and foot; I10 Essential (primary) hypertension; E78.5 Hyperlipidemia, unspecified; Z79.899 Other long term (current) drug therapy
CPT/HCPCS: 36415; 80053; 85025

== ENCOUNTER → 2021-02-21 11:17 | Outpatient (CLI) | payer MEDICARE, OTHER, SELFPAY ==
[2021-02-21 13:39] LABS: Absolute Lymphocyte Count 2.07 X10^3/uL (0.83-4.51); Basophil# 0.03 X10^3/uL; Basophil% 0.5 % (0-1); Eosinophil# 0.06 X10^3/uL; Eosinophils% 1.1 % (0-5); Hematocrit 40.8 % (37-47); Hemoglobin 13.7 g/dL (12.0-15.0); Lymphocyte # 2.07 X10^3/ul (0.83-4.51); Lymphocyte % 36.4 % (19-41); Mean Corp Hgb Conc 33.6 g/dL (32-36); Mean Corpuscular Hgb 31.2 pg (27.0-32.0); Mean Corpuscular Volume 92.9 fL (81-99); Mean Platelet Vol. 10.6 fl (6.2-12.0); Monocyte# 0.53 X10^3/uL; Monocyte% 9.3 % (0-10); NRBC Flagged by Analyzer 0 % (0-5); Neutrophil # 2.97 X10^3/uL (2.7-7.7); Neutrophil % 52.3 % (47-70); Platelet Count 225 K/mm3 (150-450); RBC Distribution Width CV 11.8 % (11.6-14.6); Red Blood Count 4.39 M/mm3 (4.2-5.4); White Blood Count 5.7 K/mm3 (4.4-11.0)
[2021-02-21 13:51] LABS: ALB/GLOB Ratio 1.1 RATIO (0.9-2.4); AST(SGOT) 20 U/L (15-37); Alanine Aminotransfer ALT/SGPT 28 U/L (13-56); Albumin, Serum 3.7 g/dL (3.2-5.0); Alkaline Phosphatase 78 U/L (45-117); Anion Gap 5 (5-15); BUN 17 mg/dL (7-18); Calcium,Total 9.2 mg/dL (8.5-10.1); Chloride 106 mmol/L (98-107); Creatinine, Serum 0.61 mg/dL (0.55-1.02); EST Glomerular Filtration Rate 104 mL/min (>60); Est Glom Filt Rate - Afr Amer 126 mL/min (>60); Globulin 3.5 g/dL (2.2-4.2); Glucose 85 mg/dL (74-106); Potassium 3.7 mmol/L (3.5-5.1); Protein, Total 7.2 g/dL (6.4-8.2); Sodium Level 139 mmol/L (136-145)
== END ==
PROVIDERS: PCP Family Medicine; Referring Provider Internal Medicine Rheumatology; Visit Provider Internal Medicine Rheumatology
DX: M06.4 Inflammatory polyarthropathy (principal); M19.072 Primary osteoarthritis, left ankle and foot; I10 Essential (primary) hypertension; E78.5 Hyperlipidemia, unspecified; Z79.899 Other long term (current) drug therapy
CPT/HCPCS: 36415; 80053; 85025

== ENCOUNTER → 2021-04-23 11:46 | Outpatient (CLI) | payer MEDICARE, OTHER, SELFPAY ==
[2021-04-23 15:23] LABS: Vitamin D,25 Hydroxy 49.1 ng/mL
[2021-04-23 15:24] LABS: Prolactin 9.4 ng/mL
== END ==
PROVIDERS: PCP Family Medicine; Referring Provider Family Medicine; Visit Provider Family Medicine
DX: E55.9 Vitamin D deficiency, unspecified (principal); E23.7 Disorder of pituitary gland, unspecified
CPT/HCPCS: 36415; 82306; 84146

== ENCOUNTER → 2021-05-19 16:37 | Outpatient (CLI) | payer MEDICARE, OTHER, SELFPAY ==
[2021-05-19 18:05] LABS: Absolute Lymphocyte Count 1.57 X10^3/uL (0.83-4.51); Absolute Neutrophil Count 5.8 X10^3/uL (2.0-7.7); Basophil# 0.03 X10^3/uL; Basophil% 0.4 % (0-1); Eosinophil# 0.01 X10^3/uL; Eosinophils% 0.1 % (0-5); Hematocrit 36.9 % (37-47); Hemoglobin 12.8 g/dL (12.0-15.0); Lymphocyte # 1.57 X10^3/ul (0.83-4.51); Lymphocyte % 19.7 % (19-41); Mean Corp Hgb Conc 34.7 g/dL (32-36); Mean Corpuscular Volume 92.3 fL (81-99); Mean Platelet Vol. 10.7 fl (6.2-12.0); Monocyte# 0.55 X10^3/uL; Monocyte% 6.9 % (0-10); NRBC Flagged by Analyzer 0 % (0-5); Neutrophil # 5.78 X10^3/uL (2.7-7.7); Neutrophil % 72.5 % (47-70); Platelet Count 194 K/mm3 (150-450); RBC Distribution Width SD 40.3 fl (35.1-43.9)
[2021-05-19 18:46] LABS: AST(SGOT) 23 U/L (15-37); Alanine Aminotransfer ALT/SGPT 22 U/L (13-56); Albumin, Serum 3.6 g/dL (3.2-5.0); Alkaline Phosphatase 76 U/L (45-117); Anion Gap 6 (5-15); BUN 14 mg/dL (7-18); BUN/Creat Ratio 17.4 RATIO (10-20); Chloride 104 mmol/L (98-107); Cholesterol 190 mg/dL (200); EST Glomerular Filtration Rate 75 mL/min (>60); Est Glom Filt Rate - Afr Amer 91 mL/min (>60); Globulin 3.6 g/dL (2.2-4.2); Glucose 105 mg/dL (74-106); High Density Lipoprotein 62 mg/dL; Potassium 3.6 mmol/L (3.5-5.1); Protein, Total 7.2 g/dL (6.4-8.2); Sodium Level 139 mmol/L (136-145); Thyroid Stim Hormone (TSH) 0.45 uIU/mL (0.358-3.74); Triglycerides 119 mg/dL; Very Low Density Lipoprotein 24 mg/dL (5-40)
== END ==
PROVIDERS: PCP Family Medicine; Referring Provider Family Medicine; Visit Provider Family Medicine
DX: E78.00 Pure hypercholesterolemia, unspecified (principal); M06.4 Inflammatory polyarthropathy; M19.072 Primary osteoarthritis, left ankle and foot; I10 Essential (primary) hypertension; E78.5 Hyperlipidemia, unspecified; Z79.899 Other long term (current) drug therapy
CPT/HCPCS: 36415; 80053; 80061; 84443; 85025

== ENCOUNTER → 2021-06-11 10:11 | Outpatient (CLI) | payer MEDICARE, OTHER, SELFPAY ==
--- NOTE | 2021-06-11 10:13 | BI_ITS ---
MAMMOGRAPHY - BILATERAL SCREENING REASON FOR EXAM: Female, 66 years old. Routine annual screening examination. PERTINENT HISTORY: Non-contributory. TECHNIQUE: Digital bilateral breast mart (3D mammographic acquisition) in the CC and MLO projections. 2-D mediolateral oblique (MLO) and craniocaudad (CC) views of both breasts were obtained. CAD: Full Field Digital Mammography with Computer Added Detection was performed. COMPARISON: Comparison is made with prior study dated 04/05/2019 and 06/22/2017. FINDINGS: Breast Composition: There are scattered areas of fibroglandular density. There are no dominant masses or suspicious calcifications. Stable scattered calcifications in both breasts. No other significant abnormalities are identified. There has been no significant change since the prior study. BI/SCREENING MAMM (CAD), BILAT IMPRESSION: Stable bilateral screening mammogram. Yearly follow-up mammogram recommended. (A) ASSESSMENT CATEGORY: BIRADS Category 2: Benign. A letter regarding these results will be sent to the patient by the facility within 30 days. Approximately 10% of breast cancers are not detected by mammography. A normal mammogram should not delay biopsy of a clinically suspicious abnormality. [id number] Electronically Signed: Bryan Nelson MD at 12:36 EST , Service support ,
--- NOTE | 2021-06-11 10:42 | BD_ITS ---
STUDY: DUAL ENERGY X-RAY ABSORPTIOMETRY / DXA REASON FOR EXAM: Female, 66 years old. [id number]. The patient is postmenopausal. TECHNIQUE: Bone Mineral Density (BMD) measurements of lumbar spine and bilateral hips were obtained. COMPARISON: Comparison is made with prior study dated 06/02/2016. FINDINGS: Lumbar Spine (L1-L4): g/cm2 (1.095) / T-score (0.7) / Z-score (2.6) Findings are suggestive of normal bone density with a low fracture risk. Left Femur Total: g/cm2 (1.020) / T-score (0.6) / Z-score (2.0) Left Femoral Neck: g/cm2 (0.857) / T-score (0.1) / Z-score (1.8) Right Femur Total: g/cm2 (0.94) / T-score (0.3) / Z-score (1.8) Right Femoral Neck: g/cm2 (0.890) / T-score (0.4) / Z-score (2.1) The T-Scores on the most recent prior examination were: Lumbar Spine (L1-L4): There has been worsening of bone density since the previous examination. Left Femur Total: which represents a worsening of 6.4%. Right Femur Total: which represents a worsening of 3.8%. BD/Dexa Bone Density Study IMPRESSION: The patient is considered normal as outlined below according to World Zen Organization (WHO) criteria with a low fracture risk. There has been worsening of bone density since the previous examination. Reference Information: The T-score is the number of standard deviations above or below the standard which is normal for young adults at their peak bone mineral density. The World Health Organization (WHO) interprets the T-scores as follows: Above -1 Normal bone density Between -1 and -2.5 Osteopenia Equal to / or below -2.5 Osteoporosis As a practical clinical guideline, osteopenia may be graded as follows: Mild -1 through -1.5 Moderate -1.6 through -2.0 Severe -2.1 through -2.4 The Z-score is the number of standard deviations above or below age-matched controls. A Z-score of less than -1.5 would be considered abnormal. References: 1. NIH Osteoporosis and Related Bone Diseases www osteo.org 2. International Society for Clinical Densitometry www iscd.org 3. National Osteoporosis Foundation www nof.org Electronically Signed: Bryan Nelson MD at 9:27 EST , Service support ,
== END ==
PROVIDERS: PCP Family Medicine; Referring Provider Family Medicine; Visit Provider Family Medicine
DX: Z78.0 Asymptomatic menopausal state (principal); Z12.31 Encounter for screening mammogram for malignant neoplasm of breast
CPT/HCPCS: 77067; 77080

== ENCOUNTER → 2021-07-02 | Outpatient (CLI) | payer MEDICARE, OTHER, SELFPAY | END | disposition home or self-care (01) | LOC: LABSPEC 15:05 | PROVIDERS: PCP Family Medicine; Visit Provider Nurse Practitioner Family | DX: Z20.822 Contact with and (suspected) exposure to COVID-19 (principal) | CPT/HCPCS: 87635; U0005; U0003 ==

== ENCOUNTER 2021-08-14 11:29 | Outpatient (CLI) | payer MEDICARE, OTHER, SELFPAY ==
[2021-08-14 15:09] LABS: Absolute Lymphocyte Count 1.42 X10^3/uL (0.83-4.51); Absolute Neutrophil Count 2.7 X10^3/uL (2.0-7.7); Basophil# 0.03 X10^3/uL; Basophil% 0.6 % (0-1); Eosinophil# 0.08 X10^3/uL; Eosinophils% 1.7 % (0-5); Hematocrit 37.1 % (37-47); Hemoglobin 12.6 g/dL (12.0-15.0); Lymphocyte # 1.42 X10^3/ul (0.83-4.51); Lymphocyte % 29.8 % (19-41); Mean Corpuscular Hgb 31.7 pg (27.0-32.0); Mean Corpuscular Volume 93.5 fL (81-99); Mean Platelet Vol. 10.9 fl (6.2-12.0); Monocyte# 0.52 X10^3/uL; Monocyte% 10.9 % (0-10); NRBC Flagged by Analyzer 0 % (0-5); Neutrophil % 56.8 % (47-70); Platelet Count 166 K/mm3 (150-450); RBC Distribution Width CV 12.5 % (11.6-14.6); RBC Distribution Width SD 41.7 fl (35.1-43.9); Red Blood Count 3.97 M/mm3 (4.2-5.4); White Blood Count 4.8 K/mm3 (4.4-11.0)
[2021-08-14 15:27] LABS: ALB/GLOB Ratio 1.1 RATIO (0.9-2.4); AST(SGOT) 20 U/L (15-37); Alanine Aminotransfer ALT/SGPT 24 U/L (13-56); Albumin, Serum 3.6 g/dL (3.2-5.0); Alkaline Phosphatase 74 U/L (45-117); Anion Gap 5 (5-15); BUN 12 mg/dL (7-18); BUN/Creat Ratio 18.5 RATIO (10-20); Calcium,Total 8.9 mg/dL (8.5-10.1); Chloride 105 mmol/L (98-107); Creatinine, Serum 0.65 mg/dL (0.55-1.02); EST Glomerular Filtration Rate 96 mL/min (>60); Est Glom Filt Rate - Afr Amer 117 mL/min (>60); Globulin 3.2 g/dL (2.2-4.2); Glucose 93 mg/dL (74-106); Potassium 3.5 mmol/L (3.5-5.1); Protein, Total 6.8 g/dL (6.4-8.2); Sodium Level 139 mmol/L (136-145)
== END 2021-08-14 23:59 | disposition home or self-care (01) ==
LOC: MTLAB 11:32
PROVIDERS: PCP Family Medicine; Referring Provider Internal Medicine Rheumatology; Visit Provider Internal Medicine Rheumatology
DX: M06.4 Inflammatory polyarthropathy (principal); M19.072 Primary osteoarthritis, left ankle and foot; I10 Essential (primary) hypertension; E78.5 Hyperlipidemia, unspecified
CPT/HCPCS: 36415; 80053; 85025

== ENCOUNTER → 2021-11-14 | Outpatient (CLI) | payer MEDICARE, OTHER, SELFPAY ==
[2021-11-14 12:36] LABS: ALB/GLOB Ratio 1.2 RATIO (0.9-2.4); AST(SGOT) 21 U/L (15-37); Absolute Lymphocyte Count 1.65 X10^3/uL (0.83-4.51); Absolute Neutrophil Count 2.4 X10^3/uL (2.0-7.7); Alanine Aminotransfer ALT/SGPT 23 U/L (13-56); Albumin, Serum 3.6 g/dL (3.2-5.0); Alkaline Phosphatase 69 U/L (45-117); BUN 16 mg/dL (7-18); BUN/Creat Ratio 25.5 RATIO (10-20); Basophil# 0.03 X10^3/uL; Basophil% 0.7 % (0-1); Calcium,Total 8.9 mg/dL (8.5-10.1); Chloride 107 mmol/L (98-107); Creatinine, Serum 0.63 mg/dL (0.55-1.02); EST Glomerular Filtration Rate 100 mL/min (>60); Eosinophil# 0.04 X10^3/uL; Eosinophils% 0.9 % (0-5); Est Glom Filt Rate - Afr Amer 121 mL/min (>60); Globulin 3.1 g/dL (2.2-4.2); Glucose 92 mg/dL (74-106); Hematocrit 39.2 % (37-47); Hemoglobin 13.3 g/dL (12.0-15.0); Lymphocyte # 1.65 X10^3/ul (0.83-4.51); Lymphocyte % 35.8 % (19-41); Mean Corp Hgb Conc 33.9 g/dL (32-36); Mean Corpuscular Hgb 31.9 pg (27.0-32.0); Mean Platelet Vol. 10.8 fl (6.2-12.0); Monocyte# 0.48 X10^3/uL; Monocyte% 10.4 % (0-10); NRBC Flagged by Analyzer 0 % (0-5); Platelet Count 155 K/mm3 (150-450); Potassium 3.8 mmol/L (3.5-5.1); Protein, Total 6.7 g/dL (6.4-8.2); RBC Distribution Width CV 11.9 % (11.6-14.6); RBC Distribution Width SD 40.9 fl (35.1-43.9); Red Blood Count 4.17 M/mm3 (4.2-5.4); Sodium Level 140 mmol/L (136-145); White Blood Count 4.6 K/mm3 (4.4-11.0)
[2021-11-14 12:37] LABS: Anion Gap 3 (5-15)
== END | disposition home or self-care (01) ==
LOC: MTLAB 09:49
PROVIDERS: PCP Family Medicine; Referring Provider Internal Medicine Rheumatology; Visit Provider Internal Medicine Rheumatology
DX: M06.4 Inflammatory polyarthropathy (principal); M19.072 Primary osteoarthritis, left ankle and foot; I10 Essential (primary) hypertension; E78.5 Hyperlipidemia, unspecified; Z79.899 Other long term (current) drug therapy
CPT/HCPCS: 36415; 80053; 85025

== ENCOUNTER → 2022-02-11 | Outpatient (CLI) | payer MEDICARE, OTHER, SELFPAY ==
[2022-02-11 14:40] LABS: Absolute Lymphocyte Count 1.96 X10^3/uL (0.83-4.51); Absolute Neutrophil Count 2.7 X10^3/uL (2.0-7.7); Basophil# 0.02 X10^3/uL; Basophil% 0.4 % (0-1); Eosinophil# 0.05 X10^3/uL; Eosinophils% 0.9 % (0-5); Hematocrit 39.6 % (37-47); Hemoglobin 13.6 g/dL (12.0-15.0); Lymphocyte # 1.96 X10^3/ul (0.83-4.51); Lymphocyte % 37.2 % (19-41); Mean Corp Hgb Conc 34.3 g/dL (32-36); Mean Corpuscular Hgb 32.6 pg (27.0-32.0); Mean Platelet Vol. 10.7 fl (6.2-12.0); Monocyte# 0.52 X10^3/uL; Monocyte% 9.9 % (0-10); NRBC Flagged by Analyzer 0 % (0-5); Neutrophil # 2.71 X10^3/uL (2.7-7.7); Neutrophil % 51.4 % (47-70); Platelet Count 191 K/mm3 (150-450); RBC Distribution Width CV 11.9 % (11.6-14.6); RBC Distribution Width SD 40.8 fl (35.1-43.9); Red Blood Count 4.17 M/mm3 (4.2-5.4); White Blood Count 5.3 K/mm3 (4.4-11.0)
[2022-02-11 15:16] LABS: ALB/GLOB Ratio 1.1 RATIO (0.9-2.4); AST(SGOT) 24 U/L (15-37); Alanine Aminotransfer ALT/SGPT 23 U/L (13-56); Albumin, Serum 3.7 g/dL (3.2-5.0); Alkaline Phosphatase 78 U/L (45-117); Anion Gap 3 (5-15); BUN 11 mg/dL (7-18); Calcium,Total 9.4 mg/dL (8.5-10.1); Chloride 108 mmol/L (98-107); Creatinine, Serum 0.79 mg/dL (0.55-1.02); EST Glomerular Filtration Rate 77 mL/min (>60); Est Glom Filt Rate - Afr Amer 93 mL/min (>60); Globulin 3.3 g/dL (2.2-4.2); Glucose 90 mg/dL (74-106); Potassium 3.5 mmol/L (3.5-5.1); Sodium Level 143 mmol/L (136-145)
== END | disposition home or self-care (01) ==
LOC: LAB 13:44
PROVIDERS: PCP Family Medicine; Visit Provider Internal Medicine Rheumatology
DX: M06.4 Inflammatory polyarthropathy (principal); M19.072 Primary osteoarthritis, left ankle and foot; I10 Essential (primary) hypertension; E78.5 Hyperlipidemia, unspecified; Z79.899 Other long term (current) drug therapy
CPT/HCPCS: 36415; 80053; 85025

== ENCOUNTER → 2022-03-06 | Outpatient (CLI) | payer MEDICARE, OTHER, SELFPAY ==
--- NOTE | 2022-03-06 17:00 | RAD_ITS ---
STUDY: X-RAY - LUMBAR SPINE REASON FOR EXAM: Female, 67 years old. BACK PAIN TECHNIQUE: 5 view(s) of the lumbar spine were obtained. COMPARISON: 03/04/2020 FINDINGS: Normal lumbar lordosis. There is no substantial scoliosis. There is a normal alignment of the vertebrae. There is multilevel endplate spondylosis of the lumbar vertebrae. There is multi-level degenerative disc disease with multi-level disc space narrowing. There is no demonstrated fracture. There is atherosclerotic calcification of the abdominal aorta without a demonstrated aneurysm. RAD/L/S Spine Min 4 Views IMPRESSION: Degenerative changes of the spine, as detailed above. Advanced as compared to prior exam Electronically Signed: Joe Bhatti DO at 21:57 EDT ,
== END | disposition home or self-care (01) ==
LOC: MTRAD 16:55
PROVIDERS: PCP Family Medicine; Referring Provider Family Medicine; Visit Provider Family Medicine
DX: M54.9 Dorsalgia, unspecified (principal)
CPT/HCPCS: 72110

== ENCOUNTER → 2022-05-13 | Outpatient (CLI) | payer MEDICARE, OTHER, SELFPAY ==
[2022-05-13 17:46] LABS: Absolute Lymphocyte Count 2.09 X10^3/uL (0.83-4.51); Absolute Neutrophil Count 3.2 X10^3/uL (2.0-7.7); Basophil# 0.03 X10^3/uL; Basophil% 0.5 % (0-1); Eosinophil# 0.05 X10^3/uL; Eosinophils% 0.8 % (0-5); Hematocrit 37.9 % (37-47); Hemoglobin 13.5 g/dL (12.0-15.0); Lymphocyte # 2.09 X10^3/ul (0.83-4.51); Lymphocyte % 34.4 % (19-41); Mean Corp Hgb Conc 35.6 g/dL (32-36); Mean Corpuscular Hgb 33.6 pg (27.0-32.0); Mean Corpuscular Volume 94.3 fL (81-99); Mean Platelet Vol. 11.1 fl (6.2-12.0); Monocyte# 0.65 X10^3/uL; Monocyte% 10.7 % (0-10); NRBC Flagged by Analyzer 0 % (0-5); Neutrophil # 3.24 X10^3/uL (2.7-7.7); Neutrophil % 53.3 % (47-70); Platelet Count 180 K/mm3 (150-450); RBC Distribution Width CV 11.9 % (11.6-14.6); Red Blood Count 4.02 M/mm3 (4.2-5.4); White Blood Count 6.1 K/mm3 (4.4-11.0)
[2022-05-13 18:05] LABS: Microalbumin,Random Urine 8.3 mg/L (NO RANGE EST.); Microalbumin:Creatinine Ratio 10.5 mg/g CRE (<30 mg/g CRE)
[2022-05-13 18:18] LABS: Vitamin D,25 Hydroxy 63.3 ng/mL
[2022-05-13 18:26] LABS: ALB/GLOB Ratio 1.2 RATIO (0.9-2.4); AST(SGOT) 21 U/L (15-37); Alanine Aminotransfer ALT/SGPT 20 U/L (13-56); Albumin, Serum 3.7 g/dL (3.2-5.0); Alkaline Phosphatase 78 U/L (45-117); Anion Gap 6 (5-15); BUN 16 mg/dL (7-18); BUN/Creat Ratio 26.2 RATIO (10-20); Calcium,Total 9.1 mg/dL (8.5-10.1); Chloride 108 mmol/L (98-107); Cholesterol 187 mg/dL (200); Creatinine, Serum 0.61 mg/dL (0.55-1.02); EST Glomerular Filtration Rate 103 mL/min (>60); Est Glom Filt Rate - Afr Amer 125 mL/min (>60); Globulin 3.1 g/dL (2.2-4.2); Glucose 99 mg/dL (74-106); High Density Lipoprotein 53 mg/dL; Potassium 3.1 mmol/L (3.5-5.1); Prolactin 10.8 ng/mL; Protein, Total 6.8 g/dL (6.4-8.2); Sodium Level 141 mmol/L (136-145); Triglycerides 190 mg/dL; Very Low Density Lipoprotein 38 mg/dL (5-40)
== END | disposition home or self-care (01) ==
LOC: MFPLAB 16:01
PROVIDERS: PCP Family Medicine; Referring Provider Family Medicine; Visit Provider Family Medicine
DX: M06.4 Inflammatory polyarthropathy (principal); M19.072 Primary osteoarthritis, left ankle and foot; I10 Essential (primary) hypertension; E78.5 Hyperlipidemia, unspecified; E55.9 Vitamin D deficiency, unspecified; Z79.899 Other long term (current) drug therapy
CPT/HCPCS: 36415; 80053; 80061; 82043; 82306; 82570; 84146; 85025

== ENCOUNTER → 2022-06-22 | Outpatient (CLI) | payer MEDICARE, OTHER, SELFPAY ==
--- NOTE | 2022-06-22 14:33 | BI_ITS ---
MAMMOGRAPHY - BILATERAL SCREENING REASON FOR EXAM: Female, 67 years old. Routine annual screening examination. PERTINENT HISTORY: Non-contributory. TECHNIQUE: Digital bilateral breast russ (3D mammographic acquisition) in the CC and MLO projections. 2-D mediolateral oblique (MLO) and craniocaudad (CC) views of both breasts were obtained. CAD: Full Field Digital Mammography with Computer Added Detection was performed. COMPARISON: Comparison is made with prior study dated 06/11/2021 and 04/05/2019. FINDINGS: Breast Composition: There are scattered areas of fibroglandular density. There are no dominant masses or suspicious calcifications. Stable scattered calcifications in both breasts. No focal clusters seen. No other significant abnormalities are identified. There has been no significant change since the prior study. BI/SCRN MAMM (CAD)W/RUSS BILAT IMPRESSION: Stable bilateral screening mammogram. Yearly follow-up mammogram recommended. (A) ASSESSMENT CATEGORY: BIRADS Category 2: Benign. A letter regarding these results will be sent to the patient by the facility within 30 days. Approximately 10% of breast cancers are not detected by mammography. A normal mammogram should not delay biopsy of a clinically suspicious abnormality. [id number] Electronically Signed: Bryan Nelson MD at 8:57 EST ,
== END | disposition home or self-care (01) ==
LOC: OPBI 14:31
PROVIDERS: PCP Family Medicine; Referring Provider Family Medicine; Visit Provider Family Medicine
DX: Z12.31 Encounter for screening mammogram for malignant neoplasm of breast (principal)
CPT/HCPCS: 77063; 77067

== ENCOUNTER → 2022-08-14 | Outpatient (CLI) | payer MEDICARE, OTHER, SELFPAY ==
[2022-08-14 09:58] LABS: Absolute Lymphocyte Count 1.32 X10^3/uL (0.83-4.51); Basophil# 0.02 X10^3/uL; Basophil% 0.5 % (0-1); Eosinophil# 0.09 X10^3/uL; Eosinophils% 2.3 % (0-5); Hematocrit 39.7 % (37-47); Hemoglobin 13.5 g/dL (12.0-15.0); Lymphocyte # 1.32 X10^3/ul (0.83-4.51); Lymphocyte % 33.6 % (19-41); Mean Corpuscular Hgb 32.1 pg (27.0-32.0); Mean Corpuscular Volume 94.5 fL (81-99); Mean Platelet Vol. 10.8 fl (6.2-12.0); Monocyte# 0.46 X10^3/uL; Monocyte% 11.7 % (0-10); NRBC Flagged by Analyzer 0 % (0-5); Neutrophil # 2.03 X10^3/uL (2.7-7.7); Neutrophil % 51.6 % (47-70); Platelet Count 171 K/mm3 (150-450); RBC Distribution Width CV 12.1 % (11.6-14.6); RBC Distribution Width SD 41.7 fl (35.1-43.9); White Blood Count 3.9 K/mm3 (4.4-11.0)
[2022-08-14 10:25] LABS: ALB/GLOB Ratio 1.2 RATIO (0.9-2.4); AST(SGOT) 22 U/L (15-37); Alanine Aminotransfer ALT/SGPT 20 U/L (13-56); Albumin, Serum 3.7 g/dL (3.2-5.0); Alkaline Phosphatase 75 U/L (45-117); Anion Gap 4 (5-15); BUN 14 mg/dL (7-18); BUN/Creat Ratio 20.7 RATIO (10-20); Calcium,Total 9.1 mg/dL (8.5-10.1); Chloride 108 mmol/L (98-107); Creatinine, Serum 0.68 mg/dL (0.55-1.02); EST Glomerular Filtration Rate 92 mL/min (>60); Est Glom Filt Rate - Afr Amer 111 mL/min (>60); Globulin 3.2 g/dL (2.2-4.2); Glucose 88 mg/dL (74-106); Potassium 3.6 mmol/L (3.5-5.1); Protein, Total 6.9 g/dL (6.4-8.2); Sodium Level 141 mmol/L (136-145)
== END | disposition home or self-care (01) ==
LOC: MTLAB 08:47
PROVIDERS: PCP Family Medicine; Referring Provider Internal Medicine Rheumatology; Visit Provider Internal Medicine Rheumatology
DX: M06.4 Inflammatory polyarthropathy (principal); Z79.899 Other long term (current) drug therapy
CPT/HCPCS: 36415; 80053; 85025

== ENCOUNTER → 2022-11-13 | Outpatient (CLI) | payer MEDICARE, OTHER, SELFPAY ==
[2022-11-13 15:29] LABS: Absolute Lymphocyte Count 1.85 X10^3/uL (0.83-4.51); Absolute Neutrophil Count 3.4 X10^3/uL (2.0-7.7); Basophil# 0.04 X10^3/uL; Basophil% 0.7 % (0-1); Eosinophil# 0.04 X10^3/uL; Eosinophils% 0.7 % (0-5); Hematocrit 38.9 % (37-47); Hemoglobin 13.6 g/dL (12.0-15.0); Lymphocyte # 1.85 X10^3/ul (0.83-4.51); Lymphocyte % 31.5 % (19-41); Mean Corpuscular Hgb 32.7 pg (27.0-32.0); Mean Corpuscular Volume 93.5 fL (81-99); Mean Platelet Vol. 11.8 fl (6.2-12.0); Monocyte# 0.57 X10^3/uL; Monocyte% 9.7 % (0-10); NRBC Flagged by Analyzer 0 % (0-5); Neutrophil # 3.36 X10^3/uL (2.7-7.7); Neutrophil % 57.2 % (47-70); Platelet Count 147 K/mm3 (150-450); RBC Distribution Width CV 11.9 % (11.6-14.6); Red Blood Count 4.16 M/mm3 (4.2-5.4); White Blood Count 5.9 K/mm3 (4.4-11.0)
[2022-11-13 15:43] LABS: ALB/GLOB Ratio 1.2 RATIO (0.9-2.4); AST(SGOT) 20 U/L (15-37); Alanine Aminotransfer ALT/SGPT 29 U/L (13-56); Albumin, Serum 3.7 g/dL (3.2-5.0); Alkaline Phosphatase 74 U/L (45-117); Anion Gap 5 (5-15); BUN 17 mg/dL (7-18); BUN/Creat Ratio 25.3 RATIO (10-20); Calcium,Total 8.9 mg/dL (8.5-10.1); Chloride 108 mmol/L (98-107); Creatinine, Serum 0.67 mg/dL (0.55-1.02); EST Glomerular Filtration Rate 92 mL/min (>60); Est Glom Filt Rate - Afr Amer 111 mL/min (>60); Globulin 3.1 g/dL (2.2-4.2); Glucose 94 mg/dL (74-106); Potassium 3.8 mmol/L (3.5-5.1); Protein, Total 6.8 g/dL (6.4-8.2); Sodium Level 140 mmol/L (136-145)
== END | disposition home or self-care (01) ==
LOC: MTLAB 11:30
PROVIDERS: PCP Family Medicine; Referring Provider Internal Medicine Rheumatology; Visit Provider Internal Medicine Rheumatology
DX: M06.4 Inflammatory polyarthropathy (principal); Z79.899 Other long term (current) drug therapy
CPT/HCPCS: 36415; 80053; 85025

== ENCOUNTER → 2023-02-05 | Outpatient (CLI) | payer MEDICARE, OTHER, SELFPAY ==
[2023-02-05 09:58] LABS: Absolute Lymphocyte Count 2.32 X10^3/uL (0.83-4.51); Absolute Neutrophil Count 2.3 X10^3/uL (2.0-7.7); Basophil# 0.04 X10^3/uL; Basophil% 0.8 % (0-1); Eosinophil# 0.04 X10^3/uL; Eosinophils% 0.8 % (0-5); Hematocrit 39.2 % (37-47); Hemoglobin 13.3 g/dL (12.0-15.0); Lymphocyte # 2.32 X10^3/ul (0.83-4.51); Lymphocyte % 44.3 % (19-41); Mean Corp Hgb Conc 33.9 g/dL (32-36); Mean Corpuscular Hgb 32.3 pg (27.0-32.0); Mean Corpuscular Volume 95.1 fL (81-99); Mean Platelet Vol. 11.1 fl (6.2-12.0); Monocyte# 0.51 X10^3/uL; Monocyte% 9.7 % (0-10); NRBC Flagged by Analyzer 0 % (0-5); Neutrophil # 2.32 X10^3/uL (2.7-7.7); Neutrophil % 44.2 % (47-70); Platelet Count 162 K/mm3 (150-450); RBC Distribution Width CV 11.9 % (11.6-14.6); RBC Distribution Width SD 40.5 fl (35.1-43.9); Red Blood Count 4.12 M/mm3 (4.2-5.4); White Blood Count 5.2 K/mm3 (4.4-11.0)
[2023-02-05 10:20] LABS: ALB/GLOB Ratio 1.1 RATIO (0.9-2.4); AST(SGOT) 20 U/L (15-37); Alanine Aminotransfer ALT/SGPT 25 U/L (13-56); Albumin, Serum 3.5 g/dL (3.2-5.0); Alkaline Phosphatase 79 U/L (45-117); Anion Gap 3 (5-15); BUN 13 mg/dL (7-18); Calcium,Total 8.9 mg/dL (8.5-10.1); Chloride 109 mmol/L (98-107); Creatinine, Serum 0.69 mg/dL (0.55-1.02); EST Glomerular Filtration Rate 90 mL/min (>60); Est Glom Filt Rate - Afr Amer 109 mL/min (>60); Globulin 3.1 g/dL (2.2-4.2); Glucose 90 mg/dL (74-106); Potassium 3.6 mmol/L (3.5-5.1); Protein, Total 6.6 g/dL (6.4-8.2); Sodium Level 141 mmol/L (136-145)
== END | disposition home or self-care (01) ==
LOC: MTLAB 07:32
PROVIDERS: PCP Family Medicine; Referring Provider Internal Medicine Rheumatology; Visit Provider Internal Medicine Rheumatology
DX: M06.4 Inflammatory polyarthropathy (principal); Z79.899 Other long term (current) drug therapy
CPT/HCPCS: 36415; 80053; 85025

== ENCOUNTER → 2023-05-13 | Outpatient (CLI) | payer MEDICARE, OTHER, SELFPAY ==
[2023-05-13 15:04] LABS: Absolute Lymphocyte Count 2.15 X10^3/uL (0.83-4.51); Absolute Neutrophil Count 4.4 X10^3/uL (2.0-7.7); Basophil# 0.04 X10^3/uL; Basophil% 0.5 % (0-1); Eosinophil# 0.05 X10^3/uL; Eosinophils% 0.7 % (0-5); Hematocrit 40.1 % (37-47); Hemoglobin 13.4 g/dL (12.0-15.0); Lymphocyte # 2.15 X10^3/ul (0.83-4.51); Lymphocyte % 29.1 % (19-41); Mean Corp Hgb Conc 33.4 g/dL (32-36); Mean Corpuscular Hgb 32.4 pg (27.0-32.0); Mean Corpuscular Volume 96.9 fL (81-99); Mean Platelet Vol. 11.2 fl (6.2-12.0); Monocyte% 9.5 % (0-10); NRBC Flagged by Analyzer 0 % (0-5); Neutrophil # 4.44 X10^3/uL (2.7-7.7); Neutrophil % 59.9 % (47-70); Platelet Count 196 K/mm3 (150-450); RBC Distribution Width CV 12.5 % (11.6-14.6); RBC Distribution Width SD 43.8 fl (35.1-43.9); Red Blood Count 4.14 M/mm3 (4.2-5.4); White Blood Count 7.4 K/mm3 (4.4-11.0)
[2023-05-13 15:39] LABS: ALB/GLOB Ratio 1.2 RATIO (0.9-2.4); AST(SGOT) 18 U/L (15-37); Alanine Aminotransfer ALT/SGPT 23 U/L (13-56); Albumin, Serum 3.6 g/dL (3.2-5.0); Alkaline Phosphatase 79 U/L (45-117); Anion Gap 2 (5-15); BUN 14 mg/dL (7-18); BUN/Creat Ratio 18.9 RATIO (10-20); Calcium,Total 8.9 mg/dL (8.5-10.1); Chloride 107 mmol/L (98-107); Creatinine, Serum 0.74 mg/dL (0.55-1.02); EST Glomerular Filtration Rate 83 mL/min (>60); Est Glom Filt Rate - Afr Amer 100 mL/min (>60); Globulin 3.1 g/dL (2.2-4.2); Glucose 100 mg/dL (74-106); Potassium 3.9 mmol/L (3.5-5.1); Protein, Total 6.7 g/dL (6.4-8.2); Sodium Level 140 mmol/L (136-145)
== END | disposition home or self-care (01) ==
LOC: BIMLAB 13:07
PROVIDERS: PCP Family Medicine; Referring Provider Internal Medicine Rheumatology; Visit Provider Internal Medicine Rheumatology
DX: M06.4 Inflammatory polyarthropathy (principal); I10 Essential (primary) hypertension; E78.5 Hyperlipidemia, unspecified; Z79.899 Other long term (current) drug therapy
CPT/HCPCS: 36415; 80053; 85025

== ENCOUNTER → 2023-05-24 | Outpatient (CLI) | payer MEDICARE, OTHER, SELFPAY ==
[2023-05-24 18:35] LABS: Cholesterol 199 mg/dL (200); High Density Lipoprotein 63 mg/dL; Prolactin 11.1 ng/mL; Triglycerides 164 mg/dL; Very Low Density Lipoprotein 33 mg/dL (5-40)
[2023-05-24 18:40] LABS: Microalbumin,Random Urine 11.3 mg/L (NO RANGE EST.); Microalbumin:Creatinine Ratio 10.8 mg/g CRE (<30 mg/g CRE)
[2023-05-25 15:06] LABS: Hemoglobin A1c 5.1 % (3.8-5.6)
== END | disposition home or self-care (01) ==
LOC: MTLAB 16:50
PROVIDERS: PCP Family Medicine; Referring Provider Family Medicine; Visit Provider Family Medicine
DX: E78.00 Pure hypercholesterolemia, unspecified (principal); E23.7 Disorder of pituitary gland, unspecified; I10 Essential (primary) hypertension; R73.09 Other abnormal glucose
CPT/HCPCS: 36415; 80061; 82043; 82570; 83036; 84146

== ENCOUNTER → 2023-06-24 | Outpatient (CLI) | payer MEDICARE, OTHER, SELFPAY ==
--- NOTE | 2023-06-24 07:06 | BI_ITS ---
MAMMOGRAPHY - BILATERAL SCREENING REASON FOR EXAM: Female, 68 years old. Routine annual screening examination. PERTINENT HISTORY: Non-contributory. TECHNIQUE: Digital bilateral breast russ (3D mammographic acquisition) in the CC and MLO projections. 2-D mediolateral oblique (MLO) and craniocaudad (CC) views of both breasts were obtained. CAD: Full Field Digital Mammography with Computer Added Detection was performed. COMPARISON: Comparison is made with prior study dated June 22, 2022 and June 11, 2021. FINDINGS: Breast Composition: There are scattered areas of fibroglandular density. There are no dominant masses or suspicious calcifications. Stable scattered microcalcifications in both breasts. No focal cluster is seen. No other significant abnormalities are identified. There has been no significant change since the prior study. BI/SCRN MAMM (CAD)W/RUSS BILAT IMPRESSION: Stable bilateral screening mammogram. Yearly follow-up mammogram recommended. (A) ASSESSMENT CATEGORY: BIRADS Category 2: Benign. A letter regarding these results will be sent to the patient by the facility within 30 days. Approximately 10% of breast cancers are not detected by mammography. A normal mammogram should not delay biopsy of a clinically suspicious abnormality. [id number] Electronically Signed: Bryan Nelson MD at 9:37 EST ,
== END | disposition home or self-care (01) ==
LOC: OPBI 07:04
PROVIDERS: PCP Family Medicine; Referring Provider Family Medicine; Visit Provider Family Medicine
DX: Z12.31 Encounter for screening mammogram for malignant neoplasm of breast (principal)
CPT/HCPCS: 77063; 77067

== ENCOUNTER → 2023-08-26 | Outpatient (CLI) | payer MEDICARE, OTHER, SELFPAY ==
[2023-08-26 10:11] LABS: Absolute Lymphocyte Count 1.97 X10^3/uL (0.83-4.51); Absolute Neutrophil Count 2.6 X10^3/uL (2.0-7.7); Basophil# 0.04 X10^3/uL; Basophil% 0.8 % (0-1); Eosinophil# 0.09 X10^3/uL; Eosinophils% 1.7 % (0-5); Hemoglobin 13.5 g/dL (12.0-15.0); Lymphocyte # 1.97 X10^3/ul (0.83-4.51); Lymphocyte % 37.1 % (19-41); Mean Corp Hgb Conc 33.8 g/dL (32-36); Mean Corpuscular Hgb 31.8 pg (27.0-32.0); Mean Corpuscular Volume 94.1 fL (81-99); Mean Platelet Vol. 10.9 fl (6.2-12.0); Monocyte# 0.61 X10^3/uL; Monocyte% 11.5 % (0-10); NRBC Flagged by Analyzer 0 % (0-5); Neutrophil # 2.59 X10^3/uL (2.7-7.7); Neutrophil % 48.7 % (47-70); Platelet Count 164 K/mm3 (150-450); RBC Distribution Width CV 11.9 % (11.6-14.6); RBC Distribution Width SD 40.5 fl (35.1-43.9); Red Blood Count 4.25 M/mm3 (4.2-5.4); White Blood Count 5.3 K/mm3 (4.4-11.0)
[2023-08-26 10:43] LABS: ALB/GLOB Ratio 1.1 RATIO (0.9-2.4); AST(SGOT) 18 U/L (15-37); Alanine Aminotransfer ALT/SGPT 22 U/L (13-56); Albumin, Serum 3.6 g/dL (3.2-5.0); Alkaline Phosphatase 73 U/L (45-117); Anion Gap 1 (5-15); BUN 20 mg/dL (7-18); BUN/Creat Ratio 28.3 RATIO (10-20); Calcium,Total 9.4 mg/dL (8.5-10.1); Chloride 111 mmol/L (98-107); Creatinine, Serum 0.71 mg/dL (0.55-1.02); EST Glomerular Filtration Rate 87 mL/min (>60); Est Glom Filt Rate - Afr Amer 105 mL/min (>60); Globulin 3.2 g/dL (2.2-4.2); Glucose 68 mg/dL (74-106); Potassium 3.5 mmol/L (3.5-5.1); Protein, Total 6.8 g/dL (6.4-8.2); Sodium Level 141 mmol/L (136-145)
== END | disposition home or self-care (01) ==
LOC: MTLAB 09:22
PROVIDERS: PCP Family Medicine; Referring Provider Internal Medicine Rheumatology; Visit Provider Internal Medicine Rheumatology
DX: M06.4 Inflammatory polyarthropathy (principal); Z79.899 Other long term (current) drug therapy
CPT/HCPCS: 36415; 80053; 85025

== ENCOUNTER → 2023-12-06 | Outpatient (CLI) | payer MEDICARE, OTHER, SELFPAY ==
[2023-12-06 12:56] LABS: Absolute Lymphocyte Count 2.17 X10^3/uL (0.83-4.51); Basophil# 0.05 X10^3/uL; Basophil% 0.8 % (0-1); Eosinophil# 0.13 X10^3/uL; Eosinophils% 2.1 % (0-5); Hematocrit 39.6 % (37-47); Hemoglobin 13.1 g/dL (12.0-15.0); Lymphocyte # 2.17 X10^3/ul (0.83-4.51); Lymphocyte % 35.7 % (19-41); Mean Corp Hgb Conc 33.1 g/dL (32-36); Mean Corpuscular Hgb 31.7 pg (27.0-32.0); Mean Corpuscular Volume 95.9 fL (81-99); Mean Platelet Vol. 11.3 fl (6.2-12.0); Monocyte# 0.73 X10^3/uL; NRBC Flagged by Analyzer 0 % (0-5); Neutrophil # 2.97 X10^3/uL (2.7-7.7); Neutrophil % 49.1 % (47-70); Platelet Count 189 K/mm3 (150-450); RBC Distribution Width CV 11.9 % (11.6-14.6); RBC Distribution Width SD 41.3 fl (35.1-43.9); Red Blood Count 4.13 M/mm3 (4.2-5.4); White Blood Count 6.1 K/mm3 (4.4-11.0)
[2023-12-06 13:21] LABS: ALB/GLOB Ratio 1.1 RATIO (0.9-2.4); AST(SGOT) 21 U/L (15-37); Alanine Aminotransfer ALT/SGPT 23 U/L (13-56); Albumin, Serum 3.6 g/dL (3.2-5.0); Alkaline Phosphatase 93 U/L (45-117); Anion Gap 3 (5-15); BUN 9 mg/dL (7-18); BUN/Creat Ratio 12.7 RATIO (10-20); Calcium,Total 9.3 mg/dL (8.5-10.1); Chloride 108 mmol/L (98-107); Creatinine, Serum 0.71 mg/dL (0.55-1.02); EST Glomerular Filtration Rate 86 mL/min (>60); Est Glom Filt Rate - Afr Amer 104 mL/min (>60); Globulin 3.2 g/dL (2.2-4.2); Glucose 91 mg/dL (74-106); Potassium 3.8 mmol/L (3.5-5.1); Protein, Total 6.8 g/dL (6.4-8.2); Sodium Level 140 mmol/L (136-145)
== END | disposition home or self-care (01) ==
LOC: MTLAB 10:13
PROVIDERS: PCP Family Medicine; Referring Provider Internal Medicine Rheumatology; Visit Provider Internal Medicine Rheumatology
DX: M06.4 Inflammatory polyarthropathy (principal); Z79.899 Other long term (current) drug therapy; M19.072 Primary osteoarthritis, left ankle and foot
CPT/HCPCS: 36415; 80053; 85025

== ENCOUNTER → 2024-03-03 | Outpatient (CLI) | payer MEDICARE, OTHER, SELFPAY ==
[2024-03-03 12:31] LABS: Absolute Lymphocyte Count 1.61 X10^3/uL (0.83-4.51); Absolute Neutrophil Count 2.3 X10^3/uL (2.0-7.7); Basophil# 0.04 X10^3/uL; Basophil% 0.9 % (0-1); Eosinophil# 0.05 X10^3/uL; Eosinophils% 1.1 % (0-5); Hematocrit 38.5 % (37-47); Lymphocyte # 1.61 X10^3/ul (0.83-4.51); Lymphocyte % 35.9 % (19-41); Mean Corp Hgb Conc 33.8 g/dL (32-36); Mean Corpuscular Hgb 31.9 pg (27.0-32.0); Mean Corpuscular Volume 94.6 fL (81-99); Mean Platelet Vol. 10.8 fl (6.2-12.0); Monocyte% 11.2 % (0-10); NRBC Flagged by Analyzer 0 % (0-5); Neutrophil # 2.27 X10^3/uL (2.7-7.7); Neutrophil % 50.7 % (47-70); Platelet Count 174 K/mm3 (150-450); RBC Distribution Width CV 12.1 % (11.6-14.6); RBC Distribution Width SD 42.2 fl (35.1-43.9); Red Blood Count 4.07 M/mm3 (4.2-5.4); White Blood Count 4.5 K/mm3 (4.4-11.0)
[2024-03-03 12:52] LABS: ALB/GLOB Ratio 1.1 RATIO (0.9-2.4); AST(SGOT) 21 U/L (15-37); Alanine Aminotransfer ALT/SGPT 33 U/L (13-56); Albumin, Serum 3.5 g/dL (3.2-5.0); Alkaline Phosphatase 77 U/L (45-117); Anion Gap 5 (5-15); BUN 13 mg/dL (7-18); BUN/Creat Ratio 17.8 RATIO (10-20); Calcium,Total 9.3 mg/dL (8.5-10.1); Chloride 108 mmol/L (98-107); Creatinine, Serum 0.73 mg/dL (0.55-1.02); EST Glomerular Filtration Rate 84 mL/min (>60); Est Glom Filt Rate - Afr Amer 101 mL/min (>60); Globulin 3.2 g/dL (2.2-4.2); Glucose 93 mg/dL (74-106); Potassium 3.6 mmol/L (3.5-5.1); Protein, Total 6.7 g/dL (6.4-8.2); Sodium Level 141 mmol/L (136-145)
== END | disposition home or self-care (01) ==
LOC: MTLAB 09:25
PROVIDERS: PCP Family Medicine; Referring Provider Internal Medicine Rheumatology; Visit Provider Internal Medicine Rheumatology
DX: M06.4 Inflammatory polyarthropathy (principal); Z79.899 Other long term (current) drug therapy
CPT/HCPCS: 36415; 80053; 85025

== ENCOUNTER → 2024-05-27 | Outpatient (CLI) | payer MEDICARE, OTHER, SELFPAY ==
[2024-05-27 09:25] LABS: Absolute Lymphocyte Count 1.82 X10^3/uL (0.83-4.51); Absolute Neutrophil Count 2.4 X10^3/uL (2.0-7.7); Basophil# 0.03 X10^3/uL; Basophil% 0.6 % (0-1); Eosinophil# 0.04 X10^3/uL; Eosinophils% 0.8 % (0-5); Hematocrit 38.9 % (37-47); Hemoglobin 13.3 g/dL (12.0-15.0); Lymphocyte # 1.82 X10^3/ul (0.83-4.51); Lymphocyte % 37.4 % (19-41); Mean Corp Hgb Conc 34.2 g/dL (32-36); Mean Corpuscular Hgb 32.1 pg (27.0-32.0); Mean Platelet Vol. 10.7 fl (6.2-12.0); Monocyte# 0.53 X10^3/uL; Monocyte% 10.9 % (0-10); NRBC Flagged by Analyzer 0 % (0-5); Neutrophil # 2.44 X10^3/uL (2.7-7.7); Neutrophil % 50.1 % (47-70); Platelet Count 170 K/mm3 (150-450); RBC Distribution Width CV 11.9 % (11.6-14.6); Red Blood Count 4.14 M/mm3 (4.2-5.4); White Blood Count 4.9 K/mm3 (4.4-11.0)
[2024-05-27 10:02] LABS: ALB/GLOB Ratio 1.3 RATIO (0.9-2.4); AST(SGOT) 21 U/L (15-37); Alanine Aminotransfer ALT/SGPT 25 U/L (13-56); Albumin, Serum 3.7 g/dL (3.2-5.0); Alkaline Phosphatase 79 U/L (45-117); Anion Gap 3 (5-15); BUN 14 mg/dL (7-18); BUN/Creat Ratio 20.3 RATIO (10-20); Calcium,Total 8.9 mg/dL (8.5-10.1); Chloride 109 mmol/L (98-107); Cholesterol 202 mg/dL (200); Creatinine, Serum 0.69 mg/dL (0.55-1.02); EST Glomerular Filtration Rate 89 mL/min (>60); Est Glom Filt Rate - Afr Amer 108 mL/min (>60); Globulin 2.8 g/dL (2.2-4.2); Glucose 97 mg/dL (74-106); High Density Lipoprotein 67 mg/dL; Potassium 3.6 mmol/L (3.5-5.1); Protein, Total 6.5 g/dL (6.4-8.2); Sodium Level 141 mmol/L (136-145); Triglycerides 119 mg/dL; Very Low Density Lipoprotein 24 mg/dL (5-40)
[2024-05-27 10:22] LABS: Protein, Urine (Random) 16.2 mg/dL (<11.9); Protein:Creat Ratio 73 mg/g CRE (0-200)
[2024-05-28 07:28] LABS: PROLACTIN 14.4 ng/mL (3.6-25.2)
[2024-05-29 08:10] LABS: Vitamin D,25 Hydroxy 40.1 ng/mL
== END | disposition home or self-care (01) ==
LOC: LAB 09:04
PROVIDERS: PCP Family Medicine; Referring Provider Family Medicine; Visit Provider Family Medicine
DX: E23.7 Disorder of pituitary gland, unspecified (principal); E78.00 Pure hypercholesterolemia, unspecified; E55.9 Vitamin D deficiency, unspecified; I10 Essential (primary) hypertension
CPT/HCPCS: 36415; 80053; 80061; 82306; 82570; 84146; 84156; 84443; 85025

== ENCOUNTER → 2024-06-26 | Outpatient (CLI) | payer MEDICARE, OTHER, SELFPAY ==
--- NOTE | 2024-06-26 15:50 | BI_ITS ---
MAMMOGRAPHY - BILATERAL SCREENING 3-D TOMOSYNTHESIS REASON FOR EXAM: Female, 69 years old. screening PERTINENT HISTORY: No significant family history. TECHNIQUE: 2-D mammograms and 3-D Tomosynthesis of the breast (s) were performed. CAD was performed. COMPARISON: 06/24/2023 FINDINGS: The breast composition is composed of scattered fibroglandular density. Scattered benign calcifications are seen. No dense spiculated masses or suspicious microcalcifications are identified. No architectural distortion is identified. There is no skin thickening or retraction. There has been no significant change since the prior study. BI/SCRN MAMM (CAD)W/RUSS BILAT IMPRESSION: No mammographic signs of malignancy. Routine yearly mammograms recommended. ASSESSMENT CATEGORY: BIRADS Category 1: Negative. A letter regarding these results will be sent to the patient by the facility within 30 days. FOLLOW UP RECOMMENDATION: Yearly follow up mammogram recommended. (A) Approximately 10% of breast cancers are not detected by mammography. A normal mammogram should not delay biopsy of a clinically suspicious abnormality. Electronically Signed: Guero Jose MD at 18:06 EST ,
== END | disposition home or self-care (01) ==
LOC: OPBI 15:50
PROVIDERS: PCP Family Medicine; Referring Provider Family Medicine; Visit Provider Family Medicine
DX: Z12.31 Encounter for screening mammogram for malignant neoplasm of breast (principal)
CPT/HCPCS: 77063; 77067

== ENCOUNTER → 2024-09-01 | Outpatient (CLI) | payer MEDICARE, OTHER, SELFPAY ==
[2024-09-01 12:53] LABS: ALB/GLOB Ratio 1.6 RATIO (0.9-2.4); AST(SGOT) 26 U/L (<=31); Alanine Aminotransfer ALT/SGPT 22 U/L (<=34); Albumin, Serum 4.1 g/dL (3.4-4.8); Alkaline Phosphatase 81 U/L (35-104); Anion Gap 9 (5-15); BUN 15 mg/dL (4-19); BUN/Creat Ratio 21.5 RATIO (10-20); Calcium 9.3 mg/dL (7.6-11.0); Carbon Dioxide 26.4 mmol/L (22.0-29.0); Chloride 105 mmol/L (96-108); Creatinine, Serum 0.69 mg/dL (0.70-1.20); EST Glomerular Filtration Rate 93 (>60); Globulin 2.6 g/dL (2.2-4.2); Glucose 91 mg/dL (70-99); Potassium 3.7 mmol/L (3.3-5.1); Protein, Total 6.7 g/dL (5.9-8.4); Sodium Level 141 mmol/L (133-145); Total Bilirubin 0.71 mg/dL (0.00-1.30)
[2024-09-01 13:50] LABS: Absolute Lymphocyte Count 1.41 X10^3/uL (0.83-4.51); Absolute Neutrophil Count 2.4 X10^3/uL (2.0-7.7); Basophil# 0.03 X10^3/uL; Basophil% 0.7 % (0-1); Eosinophil# 0.06 X10^3/uL; Eosinophils% 1.4 % (0-5); Hematocrit 38.6 % (37-47); Hemoglobin 13.3 g/dL (12.0-15.0); Lymphocyte # 1.41 X10^3/ul (0.83-4.51); Lymphocyte % 32.5 % (19-41); Mean Corp Hgb Conc 34.5 g/dL (32-36); Mean Corpuscular Hgb 32.3 pg (27.0-32.0); Mean Corpuscular Volume 93.7 fL (81-99); Mean Platelet Vol. 10.8 fl (6.2-12.0); Monocyte# 0.45 X10^3/uL; Monocyte% 10.4 % (0-10); NRBC Flagged by Analyzer 0 % (0-5); Neutrophil # 2.38 X10^3/uL (2.7-7.7); Neutrophil % 54.8 % (47-70); Platelet Count 170 K/mm3 (150-450); RBC Distribution Width SD 41.3 fl (35.1-43.9); Red Blood Count 4.12 M/mm3 (4.2-5.4); White Blood Count 4.3 K/mm3 (4.4-11.0)
== END | disposition home or self-care (01) ==
LOC: MTLAB 10:09
PROVIDERS: PCP Family Medicine; Referring Provider Internal Medicine Rheumatology; Visit Provider Internal Medicine Rheumatology
DX: M19.072 Primary osteoarthritis, left ankle and foot (principal); Z79.899 Other long term (current) drug therapy
CPT/HCPCS: 36415; 80053; 85025

== ENCOUNTER → 2024-11-30 | Outpatient (CLI) | payer MEDICARE, OTHER, SELFPAY ==
[2024-11-30 17:45] LABS: Absolute Lymphocyte Count 2.33 X10^3/uL (0.83-4.51); Absolute Neutrophil Count 2.8 X10^3/uL (2.0-7.7); Basophil# 0.04 X10^3/uL; Basophil% 0.7 % (0-1); Eosinophils% 1.7 % (0-5); Hemoglobin 13.3 g/dL (12.0-15.0); Lymphocyte # 2.33 X10^3/ul (0.83-4.51); Lymphocyte % 38.8 % (19-41); Mean Corpuscular Hgb 32.4 pg (27.0-32.0); Mean Corpuscular Volume 92.5 fL (81-99); Mean Platelet Vol. 11.2 fl (6.2-12.0); Monocyte# 0.68 X10^3/uL; Monocyte% 11.3 % (0-10); NRBC Flagged by Analyzer 0 % (0-5); Neutrophil # 2.83 X10^3/uL (2.7-7.7); Neutrophil % 47.2 % (47-70); Platelet Count 182 K/mm3 (150-450); RBC Distribution Width CV 12.1 % (11.6-14.6); RBC Distribution Width SD 40.7 fl (35.1-43.9); Red Blood Count 4.11 M/mm3 (4.2-5.4)
[2024-11-30 18:07] LABS: ALB/GLOB Ratio 1.7 RATIO (0.9-2.4); AST(SGOT) 25 U/L (<=31); Alanine Aminotransfer ALT/SGPT 16 U/L (<=34); Albumin, Serum 4.3 g/dL (3.4-4.8); Alkaline Phosphatase 82 U/L (35-104); Anion Gap 13 (5-15); BUN 12 mg/dL (4-19); BUN/Creat Ratio 17.8 RATIO (10-20); Calcium,Total 9.4 mg/dL (7.6-11.0); Carbon Dioxide 24.4 mmol/L (21.0-32.0); Chloride 105 mmol/L (98-108); Creatinine, Serum 0.68 mg/dL (0.70-1.20); EST Glomerular Filtration Rate 93 (>60); Globulin 2.5 g/dL (2.2-4.2); Glucose 95 mg/dL (70-99); Potassium 3.6 mmol/L (3.3-5.1); Protein, Total 6.7 g/dL (5.9-8.4); Sodium Level 142 mmol/L (133-145); Total Bilirubin 0.37 mg/dL (0.00-1.30)
== END | disposition home or self-care (01) ==
LOC: MTLAB 14:02
PROVIDERS: PCP Family Medicine; Referring Provider Internal Medicine Rheumatology; Visit Provider Internal Medicine Rheumatology
DX: M06.4 Inflammatory polyarthropathy (principal); Z79.899 Other long term (current) drug therapy
CPT/HCPCS: 36415; 80053; 85025

== ENCOUNTER → 2025-03-02 | Outpatient (CLI) | payer MEDICARE, OTHER, SELFPAY ==
[2025-03-02 17:47] LABS: Hematocrit 37.5 % (37-47); Hemoglobin 12.9 g/dL (12.0-15.0); Immature Granulocytes Count 0.020 X10^3/uL (0.0-0.0); Mean Corp Hgb Conc 34.4 g/dL (32-36); Mean Corpuscular Volume 94.9 fL (81-99); Mean Platelet Vol. 11.3 fl (6.2-12.0); NRBC Flagged by Analyzer 0 % (0-5); Platelet Count 182 K/mm3 (150-450); RBC Distribution Width CV 12.2 % (11.6-14.6); RBC Distribution Width SD 42.2 fl (35.1-43.9); Red Blood Count 3.95 M/mm3 (4.2-5.4); White Blood Count 6.3 K/mm3 (4.4-11.0)
[2025-03-02 18:21] LABS: AST(SGOT) 22 U/L (<=31); Alanine Aminotransfer ALT/SGPT 19 U/L (<=34); Albumin, Serum 4.1 g/dL (3.4-4.8); Alkaline Phosphatase 78 U/L (35-104); Anion Gap 10 (5-15); BUN 16 mg/dL (4-19); BUN/Creat Ratio 18.7 RATIO (10-20); Calcium,Total 9.4 mg/dL (7.6-11.0); Carbon Dioxide 27.1 mmol/L (21.0-32.0); Chloride 103 mmol/L (98-108); Globulin 2.5 g/dL (2.2-4.2); Glucose 103 mg/dL (70-99); Potassium 4.3 mmol/L (3.3-5.1)
== END | disposition home or self-care (01) ==
LOC: MTLAB 15:15
PROVIDERS: PCP Family Medicine; Referring Provider Internal Medicine Rheumatology; Visit Provider Internal Medicine Rheumatology
DX: M06.4 Inflammatory polyarthropathy (principal)
CPT/HCPCS: 36415; 80053; 85025

== ENCOUNTER → 2025-06-01 | Outpatient (CLI) | payer MEDICARE, OTHER, SELFPAY ==
--- OUTSIDE RECORDS SUMMARY | 2025-06-01 09:53 | XMS RPT_ITS | CCD ---
Author Organization [facility] Care Team Providers Care Capsule Filler Name Role Phone Faraz ACEVES, Dr. Fadumo Reddy Primary Care Provider [phone] Faraz ACEVES, Dr. Fadumo Reddy Attending Provider Faraz ACEVES, Dr. Fadumo Reddy Referring Provider Fernando ACEVES, Dr. Oakley Other Provider Fernando ACEVES, Dr. Oakley Attending Provider Fernando ACEVES, Dr. Oakley Referring Provider Faraz ACEVES, Dr. Fadumo Reddy Primary Care Provider Faraz ACEVES, Dr. Fadumo Reddy Primary Care Provider Fernando ACEVES, Dr. Oakley Attending Provider Fernando ACEVES, Dr. Oakley Referring Provider Ben ACEVES, Dr. Valdez Primary Care Provider José Miguel Contreras Primary Care Unavailable Vellanki, Cele Attending Unavailable Vellanki, Cele Referring Unavailable Jolliff, Fadumo S Primary Care Unavailable Jolliff, Fadumo S Attending Unavailable Jolliff, Fadumo S Referring Unavailable Vellanki, Cele Consulting Unavailable Jolliff, Fadumo S Primary Care Unavailable Jolliff, Fadumo S Attending Unavailable Jolliff, Fadumo S Referring Unavailable Vellanki, Cele Referring Unavailable Jolliff, Fadumo S Primary Care Unavailable Vellanki, Cele Attending Unavailable Jolliff, Fadumo S Primary Care Unavailable Vellanki, Cele Attending Unavailable Vellanki, Cele Referring Unavailable Allergies Allergy Classification Reported Allergen(s) Allergy Type Date of Onset Reaction(s) Facility (13 sources) Bacitracin Drug Allergy 07-22-2019 [facility] (14 sources) Bacitracin; Translations: [bacitracin zinc] Drug Allergy 07-22-2019 [facility] (13 sources) Clindamycin Drug Allergy 07-22-2019 [facility] (14 sources) Neomycin; Translations: [neomycin sulfate] Drug Allergy 07-22-2019 [facility] (13 sources) Polymyxin B Drug Allergy 07-22-2019 [facility] (1 source) Bacitracin Drug Allergy 07-22-2019 [facility] (1 source) Clindamycin Drug Allergy 07-22-2019 [facility] (1 source) polymyxin B Drug allergy (disorder) 07-22-2019 [facility] Medications Current Medications Medication Drug Class(es) Dates Sig (Normalized) Sig (Original) aspirin 81 mg delayed release oral tablet (13 sources) Platelet Aggregation Inhibitor, Nonsteroidal Anti-inflammator y Drug Start: 9 take 1 tablet by mouth once daily Aspirin 81 MG tablet,delayed release (DR/EC) Active 81 mg PO DAILY January 02, 2019 12:00am antiplatelet folic acid 1 mg oral tablet (13 sources) Start: 9 take 1 tablet by mouth once daily Folic Acid 1 MG tablet Active 1 mg PO DAILY January 02, 2019 12:00am supplement fosinopril sodium 40 mg oral tablet (13 sources) Angiotensin Converting Enzyme Inhibitor Start: 9 take 1 tablet by mouth once daily Fosinopril 40 MG tablet Active 40 mg PO DAILY January 02, 2019 12:00am blood pressure hydroCHLOROthiazide 12.5 mg oral capsule (20 sources) Thiazide Diuretic Start: 9 take 1 capsule by mouth once daily Hydrochlorothiazide 12.5 MG capsule Active 12.5 mg PO DAILY January 02, 2019 12:00am diuretic Start: 01-11-2015 End: 01-14-2015 Hydrochlorothiazide 25 MG ta blet Discontinued 12.5 mg PO DAILY January 11, 2015 12:00am January 14, 2015 3:55pm Start: 01-11-2015 End: 01-14-2015 take 12.5 mg by mouth once daily Hydrochlorothiazide Discontinued 12.5 MG PO DAILY January 10, 2015 11:00pm January 14, 2015 2:55pm methotrexate 2.5 mg oral tablet (13 sources) Folate Analog Metabolic Inhibitor Start: 01-02-2019 Methotrexate Sodium 2.5 tablet Active 15 mg PO WE January 02, 2019 12:00am arthritis Rylckyuqowyt-Gv-Siat-Mi nerals (10 sources) Start: 07-22-2019 Multivitamin-C a-Iron-M inerals Active 1 EACH PO DAILY July 22, 2019 12:00am Start: 07-22-2019 Multivitamin-C i-Ojus-Apwcbqtk Active 1 EACH PO DAILY July 22, 2019 1:00am Giifzgamxjoo-Ms-Nsge-Mineral s 1 EACH tablet (3 sources) Start: 07-22-2019 take 1 tablet by mouth once daily Jlqnnycbnpxu-Ho-Brfo-Minerals 1 EACH tablet Active 1 NMA PO DAILY July 22, 2019 1:00am vitamin Start: 07-22-2019 take 1 tablet by eriberto th once daily Chquvdtuzpgf-La-Crxr-Minerals 1 EACH tab let Active 1 NMA PO DAILY July 22, 2019 1:00am simvastatin 40 mg oral tablet (13 sources) HMG-CoA Reductase Inhibitor Start: 01-11-2015 Simvastatin 40 MG tablet Active 20 mg PO AT BEDTIME January 11, 2015 12:00am cholesterol Start: 01-11-2015 take 20 mg by mouth at bedtime Simvastatin Active 20 MG PO AT BEDTIME January 10, 2015 11:00pm Completed/Discontinued Medications Medication Drug Class(es) Dates Sig (Normalized) Sig (Original) astaxanthin 4 mg oral capsule (13 sources) Start: 01-11-2015 End: 01-14-2015 take 1 capsule by mouth once daily Astaxanthin 4 MG capsule Discontinued 4 mg PO DAILY January 11, 2015 12:00am January 14, 2015 3:55pm indomethacin 25 mg oral capsule (13 sources) Nonsteroidal Anti-inflammatory Drug Start: 01-13-2015 End: 01-14-2015 take 1 capsule by mouth three times daily at mealtime Indomethacin 25 MG capsule Discontinued 25 mg PO 3 TIMES DAILY WITH MEALS January 13, 2015 12:00am January 14, 2015 3:55pm Problems Active Problems Problem Classification Problem Date Documented Da te Episodic/Chronic Disorders of lipid metabolism (13 sources) Dyslipidemia; Translations: [Hyperlipidemia, unspecified] 01-02-2019 Chronic Essential hypertension (13 sources) Hypertensive disorder; Translations: [Essential (primary) hypertension] 07-22-2019 Chronic Other endocrine disorders (1 source) Disorder of pituitary gland, unspecified; Translations: [Disorder of pituitary gland, unspecified] Onset: 06-25-2024 Chronic Rheumatoid arthritis and related disease (14 sources) Rheumatoid arthritis; Translations: [Rheumatoid arthritis, unspecified] Onset: 03-19-2025 07-23-2019 Chronic Skin and subcutaneous tissue infections (13 sources) Cellulitis and abscess of lower limb; Translations: [Cellulitis of unspecified part of limb] 01-03-2019 Episodic Transient cerebral ischemia (20 sources) Transient global amnesia; 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] 07-22-2019 Chronic Past or Other Problems Problem Classification Problem Date Documented Da te Episodic/Chronic Other screening for suspected conditions (not mental disorders or infectious disease) (1 source) Encounter for screening mammogram for malignant neoplasm of breast; Translations: [Encounter for screening mammogram for malignant neoplasm of breast] Onset: 07-20-2024 Episodic Results Test Name Value Interpretation Reference Range Facility Absolute lymphocyte countOrd ered By: Cele King on 03-02-2025 Lymphocytes Auto (Unsp spec) [#/Vol] 2.13 10*3/uL 0.83-4.51 [facility] Absolute neutrophil countOrd ered By: Cele King on 03-02-2025 Neutrophils (Bld) [#/Vol] 3.4 10*3/uL 2.0-7.7 [facility] Anion gap in Serum or Plasma Ordered By: Cele King on 03-02-2025 Anion gap [Moles/Vol] 10 mmol/L 5-15 [facility] Automated lymphocyte count a s percentage of total leukocytesOrdered By: Cele King on 03-02-2025 Lymphocytes/100 WBC Auto (Unsp spec) 33.9 % 19-41 [facility] BUN/creatinine ratioOrdered By: Celecastro King on 03-02-2025 Urea nitrogen/Creatinine [Mass ratio] 18.7 mg/mg 10-20 [facility] Basophil percentageOrdered B y: Cele King on 03-02-2025 Basophils/100 WBC (Bld) 0.6 % 0-1 [facility] Bilirubin, totalOrdered By: Cele King on 03-02-2025 Bilirubin [Mass/Vol] 0.35 mg/dL 0.00-1.30 [facility] CBC W/Diff, Automatedon 08-2 Absolute Lymph 2.13 X10 3/uL Normal 0.83-4.51 [facility] Comment on above: Performed By: #### L 100.0100, L500.4050 #### [facility] [address] [place], [address] Absolute Neut 3.4 X10 3/uL Normal 2.0-7.7 [facility] Comment on above: Performed By: #### L 100.0100, L500.4050 #### [facility] [address] [place], [address] Basophils/100 WBC (Bld) 0.6 % Normal 0-1 [facility] Comment on above: Performed By: #### L 100.0100, L500.4050 #### [facility] [address] [place], [address] Eosinophils/100 WBC (Bld) 0.6 % Normal 0-5 [facility] Comment on above: Performed By: #### L 100.0100, L500.4050 #### [facility] [address] [place], [address] Erythrocyte distribution width (RBC) [Ratio] 12.2 % Normal 11.6-14.6 [facility] Comment on above: Performed By: #### L 100.0100, L500.4050 #### [facility] [address] [place], [address] Hematocrit (Bld) [Volume fraction] 37.5 % Normal 37-47 [facility] Comment on above: Performed By: #### L 100.0100, L500.4050 #### [facility] [address] [place], [address] Hemoglobin (Bld) [Mass/Vol] 12.9 g/dL Normal 12.0-15.0 [facility] Comment on above: Performed By: #### L 100.0100, L500.4050 #### [facility] [address] [place], [address] IG% 0.300 Normal 0.0-0.9 [facility] Comment on above: Result Comment: IG% - Immature Granulocytes (promyelocytes, myelocytes and metamyelocytes) > 1% indicates that a LEFT SHIFT is Present. Performed By: #### L 100.0100, L500.4050 #### [facility] [address] [place], [address] Lymphocytes/100 WBC (Bld) 33.9 % Normal 19-41 [facility] Comment on above: Performed By: #### L 100.0100, L500.4050 #### [facility] [address] [place], [address] MCH (RBC) [Entitic mass] 32.7 pg High 27.0-32.0 [facility] Comment on above: Performed By: #### L 100.0100, L500.4050 #### [facility] [address] [place], [address] MCHC (RBC) [Mass/Vol] 34.4 g/dL Normal 32-36 [facility] Comment on above: Performed By: #### L 100.0100, L500.4050 #### [facility] [address] [place], [address] MCV (RBC) [Entitic vol] 94.9 fL Normal 81-99 [facility] Comment on above: Performed By: #### L 100.0100, L500.4050 #### [facility] [address] [place], [address] Monocytes/100 WBC (Bld) 10.0 % Normal 0-10 [facility] Comment on above: Performed By: #### L 100.0100, L500.4050 #### [facility] [address] [place], [address] Neutrophils/100 WBC (Bld) 54.6 % Normal 47-70 [facility] Comment on above: Performed By: #### L 100.0100, L500.4050 #### [facility] [address] [place], [address] Nucleated RBC (Bld) [#/Vol] 0 10*3/uL Normal 0-5 [facility] Comment on above: Performed By: #### L 100.0100, L500.4050 #### [facility] [address] [place], [address] Platelet mean volume (Bld) [Entitic vol] 11.3 fL Normal 6.2-12.0 [facility] Comment on above: Performed By: #### L 100.0100, L500.4050 #### [facility] [address] [place], [address] Platelets (Bld) [#/Vol] 182 10*3/uL Normal 150-450 [facility] Comment on above: Performed By: #### L 100.0100, L500.4050 #### [facility] [address] [place], [address] RBC (Bld) [#/Vol] 3.95 10*6/uL Low 4.2-5.4 [facility] Comment on above: Performed By: #### L 100.0100, L500.4050 #### [facility] [address] [place], [address] RDW SD 42.2 fl Normal 35.1-43.9 [facility] Comment on above: Performed By: #### L 100.0100, L500.4050 #### [facility] [address] [place], [address] WBC (Bld) [#/Vol] 6.3 10*3/uL Normal 4.4-11.0 [facility] Comment on above: Performed By: #### L 100.0100, L500.4050 #### [facility] [address] [place], [address] Carbon dioxide, total [Moles /volume] in Central venous bloodOrdered By: Cele King on 03-02-2025 CO2 [Moles/Vol] 27.1 mmol/L 21.0-32.0 [facility] Chloride assayOrdered By: Ramsey King on 03-02-2025 Chloride [Moles/Vol] 103 mmol/L 98-108 [facility] Comprehensive Metabolic Prof ilon 03-02-2025 Albumin [Mass/Vol] 4.1 g/dL Normal 3.4-4.8 [facility] Comment on above: Performed By: #### L 100.0100, L500.4050 #### [facility] [address] [place], [address] Albumin/Globulin [Mass ratio] 1.6 {ratio} Normal 0.9-2.4 [facility] Comment on above: Performed By: #### L 100.0100, L500.4050 #### [facility] [address] [place], [address] ALK PHOS 78 U/L Normal 35-104 [facility] Comment on above: Performed By: #### L 100.0100, L500.4050 #### [facility] [address] [place], [address] ALT [Catalytic activity/Vol] 19 U/L Normal <=34 [facility] Comment on above: Performed By: #### L 100.0100, L500.4050 #### [facility] [address] [place], [address] AST [Catalytic activity/Vol] 22 U/L Normal <=31 [facility] Comment on above: Performed By: #### L 100.0100, L500.4050 #### [facility] [address] [place], [address] Bilirubin [Mass/Vol] 0.35 mg/dL Normal 0.00-1.30 [facility] Comment on above: Performed By: #### L 100.0100, L500.4050 #### [facility] [address] [place], [address] BUN/CRE 18.7 RATIO Normal 10-20 [facility] Comment on above: Performed By: #### L 100.0100, L500.4050 #### [facility] [address] [place], [address] Calcium [Mass/Vol] 9.4 mg/dL Normal 7.6-11.0 [facility] Comment on above: Performed By: #### L 100.0100, L500.4050 #### [facility] [address] [place], [address] Chloride [Moles/Vol] 103 mmol/L Normal 98-108 [facility] Comment on above: Performed By: #### L 100.0100, L500.4050 #### [facility] [address] [place], [address] CO2 [Moles/Vol] 27.1 mmol/L Normal 21.0-32.0 [facility] Comment on above: Performed By: #### L 100.0100, L500.4050 #### [facility] [address] [place], [address] Creatinine [Mass/Vol] 0.88 mg/dL Normal 0.70-1.20 [facility] Comment on above: Performed By: #### L 100.0100, L500.4050 #### [facility] [address] [place], [address] GAP 10 Normal 5-15 [facility] Comment on above: Performed By: #### L 100.0100, L500.4050 #### [facility] [address] [place], [address] GFR/1.73 sq M.predicted among non-blacks MDRD (S/P/Bld) [Vol rate/Area] 70 mL/min/{1.73_m2} Normal >60 [facility] Comment on above: Result Comment: mL/m in/1.73m2 CKD-EPI Creatinine Equation (2020) Performed By: #### L 100.0100, L500.4050 #### [facility] [address] [place], [address] Globulin (S) [Mass/Vol] 2.5 g/dL Normal 2.2-4.2 [facility] Comment on above: Performed By: #### L 100.0100, L500.4050 #### [facility] [address] [place], [address] Glucose [Mass/Vol] 103 mg/dL High 70-99 [facility] Comment on above: Performed By: #### L 100.0100, L500.4050 #### [facility] [address] [place], [address] Potassium [Moles/Vol] 4.3 mmol/L Normal 3.3-5.1 [facility] Comment on above: Performed By: #### L 100.0100, L500.4050 #### [facility] [address] [place], [address] Sodium [Moles/Vol] 141 mmol/L Normal 133-145 [facility] Comment on above: Performed By: #### L 100.0100, L500.4050 #### [facility] [address] [place], [address] T PROT 6.6 g/dL Normal 5.9-8.4 [facility] Comment on above: Performed By: #### L 100.0100, L500.4050 #### [facility] [address] [place], [place], [id number] Urea nitrogen [Mass/Vol] 16 mg/dL Normal 4-19 [facility] Comment on above: Performed By: #### L 100.0100, L500.4050 #### [facility] [address] [place], [place], [address] Eosinophil percentageOrdered By: Cele King on 03-02-2025 Eosinophils/100 WBC (Bld) 0.6 % 0-5 [facility] Erythrocyte distribution wid th ratioOrdered By: Cele King on 03-02-2025 Erythrocyte distribution width (RBC) [Ratio] 12.2 % 11.6-14.6 [facility] Erythrocyte distribution wid th standard deviationOrdered By: Cele King on 03-02-2025 Erythrocyte distribution width (RBC) [Ratio] 42.2 fl 35.1-43.9 [facility] Glomerular filtration rate ( GFR) estimation/1.73 sq m using serum, plasma, or whole bOrdered By: Cele King on 03-02-2025 GFR/1.73 sq M.predicted among non-blacks MDRD (S/P/Bld) [Vol rate/Area] 70 mL/min/{1.73_m2} >60 [facility] Comment on above: mL/min/1.73m2 CKD-EP I Creatinine Equation (2020) Hematocrit Auto (Bld) [Volum e fraction]Ordered By: Cele King on 03-02-2025 Hematocrit (Bld) [Volume fraction] 37.5 % 37-47 [facility] Hemoglobin measurementOrdere d By: Cele King on 03-02-2025 Hemoglobin (Bld) [Mass/Vol] 12.9 g/dL 12.0-15.0 [facility] Immature granulocytes/100 WB C Auto (Bld)Ordered By: Cele King on 03-02-2025 Immature granulocytes/100 WBC (Bld) 0.300 % 0.0-0.9 [facility] Comment on above: IG% - Immature Granu locytes (promyelocytes, myelocytes and metamyelocytes) > 1% indicates that a LEFT SHIFT is Present. Laboratory - Chemistry and C hemistry - challengeOrdered By: Cele King on 03-02-2025 AST [Catalytic activity/Vol] 22 U/L <32 [facility] MCV (mean corpuscular volume ) determinationOrdered By: Cele King on 03-02-2025 MCV (RBC) [Entitic vol] 94.9 fL 81-99 [facility] Mean corpuscular hemoglobin (MCH) determinationOrdered By: Cele King on 03-02-2025 MCH (RBC) [Entitic mass] 32.7 pg High 27.0-32.0 [facility] Mean corpuscular hemoglobin concentration (MCHC) determinationOrdered By: Cele King on 03-02-2025 MCHC (RBC) [Mass/Vol] 34.4 g/dL 32-36 [facility] Mean platelet volume determi nationOrdered By: Cele King on 03-02-2025 Platelet mean volume (Bld) [Entitic vol] 11.3 fL 6.2-12.0 [facility] Monocyte percentageOrdered B y: Cele iKng on 03-02-2025 Monocytes/100 WBC (Bld) 10.0 % 0-10 [facility] Neutrophil percentageOrdered By: Cele King on 03-02-2025 Neutrophils/100 WBC (Bld) 54.6 % 47-70 [facility] Nucleated red blood cell per centageOrdered By: Cele King on 03-02-2025 Nucleated RBC/100 WBC (Bld) [Ratio] 0 % 0-5 [facility] Platelet countOrdered By: Ramsey King on 03-02-2025 Platelets (Bld) [#/Vol] 182 10*3/uL 150-450 [facility] Potassium measurement (mass/ volume)Ordered By: Cele King on 03-02-2025 Potassium (Unsp spec) [Mass/Vol] 4.3 mmol/L 3.3-5.1 [facility] RBC Auto (Bld) [#/Vol]Ordere d By: Cele King on 03-02-2025 RBC (Bld) [#/Vol] 3.95 10*6/uL Low 4.2-5.4 [facility] Serum creatinine measurement (mass/volume)Ordered By: Cele King on 03-02-2025 Creatinine [Mass/Vol] 0.88 mg/dL 0.70-1.20 [facility] Serum globulin measurementOr dered By: Cele King on 03-02-2025 Globulin (S) [Mass/Vol] 2.5 g/dL 2.2-4.2 [facility] Serum glucose measurement (m ass/volume)Ordered By: Cele King on 03-02-2025 Glucose [Mass/Vol] 103 mg/dL High 70-99 [facility] Serum or plasma alanine coronel otransferase (ALT) measurementOrdered By: Cele King on 03-02-2025 ALT [Catalytic activity/Vol] 19 U/L <35 [facility] Serum or plasma albumin williams urement (mass/volume)Ordered By: Cele King on 03-02-2025 Albumin [Mass/Vol] 4.1 g/dL 3.4-4.8 [facility] Serum or plasma albumin/glob ulin mass ratioOrdered By: Cele King on 03-02-2025 Albumin/Globulin [Mass ratio] 1.6 {ratio} 0.9-2.4 [facility] Serum or plasma alkaline narinder sphatase measurementOrdered By: Cele King on 03-02-2025 ALP [Catalytic activity/Vol] 78 U/L 35-104 [facility] Serum or plasma calcium williams urement (mass/volume)Ordered By: eCle King on 03-02-2025 Calcium [Mass/Vol] 9.4 mg/dL 7.6-11.0 [facility] Serum or plasma urea nitroge n measurement (mass/volume)Ordered By: Cele King on 03-02-2025 Urea nitrogen [Mass/Vol] 16 mg/dL 4-19 [facility] Sodium levelOrdered By: Glory King on 03-02-2025 Sodium [Moles/Vol] 141 mmol/L 133-145 [facility] Total proteinOrdered By: Ahmet King on 03-02-2025 Protein [Mass/Vol] 6.6 g/dL 5.9-8.4 [facility] White blood cell (WBC) count Ordered By: Celecastro King on 03-02-2025 WBC (Bld) [#/Vol] 6.3 10*3/uL 4.4-11.0 [facility] Absolute lymphocyte countOrd ered By: [facility] Fernando on 11-30-2024 Lymphocytes Auto (Unsp spec) [#/Vol] 2.33 10*3/uL 0.83-4.51 [facility] Absolute neutrophil countOrd ered By: [facility] Fernando on 11-30-2024 Neutrophils (Bld) [#/Vol] 2.8 10*3/uL 2.0-7.7 [facility] Anion gap in Serum or Plasma Ordered By: Cele King on 11-30-2024 Anion gap [Moles/Vol] 13 mmol/L 5-15 [facility] Automated lymphocyte count a s percentage of total leukocytesOrdered By: [facility] Fernando on 11-30-2024 Lymphocytes/100 WBC Auto (Unsp spec) 38.8 % 19-41 [facility] BUN/creatinine ratioOrdered By: [facility] Fernando on 11-30-2024 Urea nitrogen/Creatinine [Mass ratio] 17.8 mg/mg 10-20 [facility] Basophil percentageOrdered B y: Cele King on 11-30-2024 Basophils/100 WBC (Bld) 0.7 % 0-1 [facility] Bilirubin, totalOrdered By: [facility] Fernando on 11-30-2024 Bilirubin [Mass/Vol] 0.37 mg/dL 0.00-1.30 [facility] CBC W/Diff, Automatedon 11-03 Absolute Lymph 2.33 X10 3/uL Normal 0.83-4.51 [facility] Comment on above: Performed By: #### L 100.0100, L500.4050 #### [facility] [address] [place], [address] Absolute Neut 2.8 X10 3/uL Normal 2.0-7.7 [facility] Comment on above: Performed By: #### L 100.0100, L500.4050 #### [facility] [address] [place], [address] Basophils/100 WBC (Bld) 0.7 % Normal 0-1 [facility] Comment on above: Performed By: #### L 100.0100, L500.4050 #### [facility] [address] [place], [address] Eosinophils/100 WBC (Bld) 1.7 % Normal 0-5 [facility] Comment on above: Performed By: #### L 100.0100, L500.4050 #### [facility] [address] [place], [address] Erythrocyte distribution width (RBC) [Ratio] 12.1 % Normal 11.6-14.6 [facility] Comment on above: Performed By: #### L 100.0100, L500.4050 #### [facility] [address] [place], [address] Hematocrit (Bld) [Volume fraction] 38.0 % Normal 37-47 [facility] Comment on above: Performed By: #### L 100.0100, L500.4050 #### [facility] [address] [place], [address] Hemoglobin (Bld) [Mass/Vol] 13.3 g/dL Normal 12.0-15.0 [facility] Comment on above: Performed By: #### L 100.0100, L500.4050 #### [facility] [address] [place], [address] IG% 0.300 Normal 0.0-0.9 [facility] Comment on above: Result Comment: IG% - Immature Granulocytes (promyelocytes, myelocytes and metamyelocytes) > 1% indicates that a LEFT SHIFT is Present. Performed By: #### L 100.0100, L500.4050 #### [facility] [address] [place], [address] Lymphocytes/100 WBC (Bld) 38.8 % Normal 19-41 [facility] Comment on above: Performed By: #### L 100.0100, L500.4050 #### [facility] [address] [place], [address] MCH (RBC) [Entitic mass] 32.4 pg High 27.0-32.0 [facility] Comment on above: Performed By: #### L 100.0100, L500.4050 #### [facility] [address] [place], [address] MCHC (RBC) [Mass/Vol] 35.0 g/dL Normal 32-36 [facility] Comment on above: Performed By: #### L 100.0100, L500.4050 #### [facility] [address] [place], [address] MCV (RBC) [Entitic vol] 92.5 fL Normal 81-99 [facility] Comment on above: Performed By: #### L 100.0100, L500.4050 #### [facility] [address] [place], [address] Monocytes/100 WBC (Bld) 11.3 % High 0-10 [facility] Comment on above: Performed By: #### L 100.0100, L500.4050 #### [facility] [address] [place], [address] Neutrophils/100 WBC (Bld) 47.2 % Normal 47-70 [facility] Comment on above: Performed By: #### L 100.0100, L500.4050 #### [facility] [address] [place], [address] Nucleated RBC (Bld) [#/Vol] 0 10*3/uL Normal 0-5 [facility] Comment on above: Performed By: #### L 100.0100, L500.4050 #### [facility] [address] [place], [address] Platelet mean volume (Bld) [Entitic vol] 11.2 fL Normal 6.2-12.0 [facility] Comment on above: Performed By: #### L 100.0100, L500.4050 #### [facility] [address] [place], [address] Platelets (Bld) [#/Vol] 182 10*3/uL Normal 150-450 [facility] Comment on above: Performed By: #### L 100.0100, L500.4050 #### [facility] [address] [place], [address] RBC (Bld) [#/Vol] 4.11 10*6/uL Low 4.2-5.4 [facility] Comment on above: Performed By: #### L 100.0100, L500.4050 #### [facility] [address] [place], [address] RDW SD 40.7 fl Normal 35.1-43.9 [facility] Comment on above: Performed By: #### L 100.0100, L500.4050 #### [facility] [address] [place], [address] WBC (Bld) [#/Vol] 6.0 10*3/uL Normal 4.4-11.0 [facility] Comment on above: Performed By: #### L 100.0100, L500.4050 #### [facility] [address] [place], [address] Carbon dioxide, total [Moles /volume] in Central venous bloodOrdered By: Cele King on 11-30-2024 CO2 [Moles/Vol] 24.4 mmol/L 21.0-32.0 [facility] Chloride assayOrdered By: Ramsey King on 11-30-2024 Chloride [Moles/Vol] 105 mmol/L 98-108 [facility] Comprehensive Metabolic Prof ilon 11-30-2024 Albumin [Mass/Vol] 4.3 g/dL Normal 3.4-4.8 [facility] Comment on above: Performed By: #### L 100.0100, L500.4050 #### [facility] [address] [place], [address] Albumin/Globulin [Mass ratio] 1.7 {ratio} Normal 0.9-2.4 [facility] Comment on above: Performed By: #### L 100.0100, L500.4050 #### [facility] [address] [place], [address] ALK PHOS 82 U/L Normal 35-104 [facility] Comment on above: Performed By: #### L 100.0100, L500.4050 #### [facility] [address] [place], [address] ALT [Catalytic activity/Vol] 16 U/L Normal <=34 [facility] Comment on above: Performed By: #### L 100.0100, L500.4050 #### [facility] [address] [place], [address] AST [Catalytic activity/Vol] 25 U/L Normal <=31 [facility] Comment on above: Performed By: #### L 100.0100, L500.4050 #### [facility] [address] [place], [address] Bilirubin [Mass/Vol] 0.37 mg/dL Normal 0.00-1.30 [facility] Comment on above: Performed By: #### L 100.0100, L500.4050 #### [facility] [address] [place], [address] BUN/CRE 17.8 RATIO Normal 10-20 [facility] Comment on above: Performed By: #### L 100.0100, L500.4050 #### [facility] [address] [place], [address] Calcium [Mass/Vol] 9.4 mg/dL Normal 7.6-11.0 [facility] Comment on above: Performed By: #### L 100.0100, L500.4050 #### [facility] [address] [place], [address] Chloride [Moles/Vol] 105 mmol/L Normal 98-108 [facility] Comment on above: Performed By: #### L 100.0100, L500.4050 #### [facility] [address] [place], [address] CO2 [Moles/Vol] 24.4 mmol/L Normal 21.0-32.0 [facility] Comment on above: Performed By: #### L 100.0100, L500.4050 #### [facility] [address] [place], [address] Creatinine [Mass/Vol] 0.68 mg/dL Low 0.70-1.20 [facility] Comment on above: Performed By: #### L 100.0100, L500.4050 #### [facility] [address] [place], [address] GAP 13 Normal 5-15 [facility] Comment on above: Performed By: #### L 100.0100, L500.4050 #### [facility] [address] [place], [address] GFR/1.73 sq M.predicted among non-blacks MDRD (S/P/Bld) [Vol rate/Area] 93 mL/min/{1.73_m2} Normal >60 [facility] Comment on above: Result Comment: mL/m in/1.73m2 CKD-EPI Creatinine Equation (2020) Performed By: #### L 100.0100, L500.4050 #### [facility] [address] [place], [address] Globulin (S) [Mass/Vol] 2.5 g/dL Normal 2.2-4.2 [facility] Comment on above: Performed By: #### L 100.0100, L500.4050 #### [facility] [address] [place], [address] Glucose [Mass/Vol] 95 mg/dL Normal 70-99 [facility] Comment on above: Performed By: #### L 100.0100, L500.4050 #### [facility] [address] [place], [address] Potassium [Moles/Vol] 3.6 mmol/L Normal 3.3-5.1 [facility] Comment on above: Performed By: #### L 100.0100, L500.4050 #### [facility] [address] [place], [address] Sodium [Moles/Vol] 142 mmol/L Normal 133-145 [facility] Comment on above: Performed By: #### L 100.0100, L500.4050 #### [facility] [address] [place], [address] T PROT 6.7 g/dL Normal 5.9-8.4 [facility] Comment on above: Performed By: #### L 100.0100, L500.4050 #### [facility] [address] [place], [address] Urea nitrogen [Mass/Vol] 12 mg/dL Normal 4-19 [facility] Comment on above: Performed By: #### L 100.0100, L500.4050 #### [facility] [place], [address] Eosinophil percentageOrdered By: Cele King on 11-30-2024 Eosinophils/100 WBC (Bld) 1.7 % 0-5 [facility] Erythrocyte distribution wid th ratioOrdered By: Cele King on 11-30-2024 Erythrocyte distribution width (RBC) [Ratio] 12.1 % 11.6-14.6 [facility] Erythrocyte distribution wid th standard deviationOrdered By: Celecastro King on 11-30-2024 Erythrocyte distribution width (RBC) [Ratio] 40.7 fl 35.1-43.9 [facility] Glomerular filtration rate ( GFR) estimation/1.73 sq m using serum, plasma, or whole bOrdered By: Celecastro King on 11-30-2024 GFR/1.73 sq M.predicted among non-blacks MDRD (S/P/Bld) [Vol rate/Area] 93 mL/min/{1.73_m2} >60 [facility] Comment on above: mL/min/1.73m2 CKD-EP I Creatinine Equation (2020) Hematocrit Auto (Bld) [Volum e fraction]Ordered By: Cele King on 11-30-2024 Hematocrit (Bld) [Volume fraction] 38.0 % 37-47 [facility] Hemoglobin measurementOrdere d By: Cele King on 11-30-2024 Hemoglobin (Bld) [Mass/Vol] 13.3 g/dL 12.0-15.0 [facility] Immature granulocytes/100 WB C Auto (Bld)Ordered By: Cele King on 11-30-2024 Immature granulocytes/100 WBC (Bld) 0.300 % 0.0-0.9 [facility] Comment on above: IG% - Immature Granu locytes (promyelocytes, myelocytes and metamyelocytes) > 1% indicates that a LEFT SHIFT is Present. Laboratory - Chemistry and C hemistry - challengeOrdered By: Cele King on 11-30-2024 AST [Catalytic activity/Vol] 25 U/L <32 [facility] MCV (mean corpuscular volume ) determinationOrdered By: Cele King on 11-30-2024 MCV (RBC) [Entitic vol] 92.5 fL 81-99 [facility] Mean corpuscular hemoglobin (MCH) determinationOrdered By: Cele King on 11-30-2024 MCH (RBC) [Entitic mass] 32.4 pg High 27.0-32.0 [facility] Mean corpuscular hemoglobin concentration (MCHC) determinationOrdered By: Cele King on 11-30-2024 MCHC (RBC) [Mass/Vol] 35.0 g/dL 32-36 [facility] Mean platelet volume determi nationOrdered By: Cele King on 11-30-2024 Platelet mean volume (Bld) [Entitic vol] 11.2 fL 6.2-12.0 [facility] Monocyte percentageOrdered B y: Cele King on 11-30-2024 Monocytes/100 WBC (Bld) 11.3 % High 0-10 [facility] Neutrophil percentageOrdered By: Cele King on 11-30-2024 Neutrophils/100 WBC (Bld) 47.2 % 47-70 [facility] Nucleated red blood cell per centageOrdered By: Cele King on 11-30-2024 Nucleated RBC/100 WBC (Bld) [Ratio] 0 % 0-5 [facility] Platelet countOrdered By: Ramsey King on 11-30-2024 Platelets (Bld) [#/Vol] 182 10*3/uL 150-450 [facility] Potassium measurement (mass/ volume)Ordered By: Cele King on 11-30-2024 Potassium (Unsp spec) [Mass/Vol] 3.6 mmol/L 3.3-5.1 [facility] RBC Auto (Bld) [#/Vol]Ordere d By: Cele King on 11-30-2024 RBC (Bld) [#/Vol] 4.11 10*6/uL Low 4.2-5.4 [facility] Serum creatinine measurement (mass/volume)Ordered By: Cele King on 11-30-2024 Creatinine [Mass/Vol] 0.68 mg/dL Low 0.70-1.20 [facility] Serum globulin measurementOr dered By: Cele King on 11-30-2024 Globulin (S) [Mass/Vol] 2.5 g/dL 2.2-4.2 [facility] Serum glucose measurement (m ass/volume)Ordered By: Cele King on 11-30-2024 Glucose [Mass/Vol] 95 mg/dL 70-99 [facility] Serum or plasma alanine coronel otransferase (ALT) measurementOrdered By: Cele King on 11-30-2024 ALT [Catalytic activity/Vol] 16 U/L <35 [facility] Serum or plasma albumin williams urement (mass/volume)Ordered By: Cele King on 11-30-2024 Albumin [Mass/Vol] 4.3 g/dL 3.4-4.8 [facility] Serum or plasma albumin/glob ulin mass ratioOrdered By: Cele King on 11-30-2024 Albumin/Globulin [Mass ratio] 1.7 {ratio} 0.9-2.4 [facility] Serum or plasma alkaline narinder sphatase measurementOrdered By: Cele King on 11-30-2024 ALP [Catalytic activity/Vol] 82 U/L 35-104 [facility] Serum or plasma calcium williams urement (mass/volume)Ordered By: Cele King on 11-30-2024 Calcium [Mass/Vol] 9.4 mg/dL 7.6-11.0 [facility] Serum or plasma urea nitroge n measurement (mass/volume)Ordered By: Cele King on 11-30-2024 Urea nitrogen [Mass/Vol] 12 mg/dL 4-19 [facility] Sodium levelOrdered By: Glory King on 11-30-2024 Sodium [Moles/Vol] 142 mmol/L 133-145 [facility] Total proteinOrdered By: Ahmet King on 11-30-2024 Protein [Mass/Vol] 6.7 g/dL 5.9-8.4 [facility] White blood cell (WBC) count Ordered By: Cele King on 11-30-2024 WBC (Bld) [#/Vol] 6.0 10*3/uL 4.4-11.0 [facility] Absolute lymphocyte countOrd ered By: Cele King on 09-01-2024 Lymphocytes Auto (Unsp spec) [#/Vol] 1.41 10*3/uL 0.83-4.51 [facility] Absolute neutrophil countOrd ered By: Cele King on 09-01-2024 Neutrophils (Bld) [#/Vol] 2.4 10*3/uL 2.0-7.7 [facility] Automated lymphocyte count a s percentage of total leukocytesOrdered By: Cele King on 09-01-2024 Lymphocytes/100 WBC Auto (Unsp spec) 32.5 % [facility] BUN/creatinine ratioOrdered By: Celecastro King on 09-01-2024 Urea nitrogen/Creatinine [Mass ratio] 21.5 mg/mg High 10- [facility] Basophil percentageOrdered B y: Cele King on 09-01-2024 Basophils/100 WBC (Bld) 0.7 % 0-1 [facility] Bilirubin, totalOrdered By: Cele King on 09-01-2024 Bilirubin [Mass/Vol] 0.71 mg/dL 0.00-1.30 [facility] CBC W/Diff, Automatedon 08-06 Absolute Lymph 1.41 X10 3/uL Normal 0.83-4.51 [facility] Comment on above: Performed By: #### L 100.0100, L500.4050 #### [facility] [address] [place], [address] Absolute Neut 2.4 X10 3/uL Normal 2.0-7.7 [facility] Comment on above: Performed By: #### L 100.0100, L500.4050 #### [facility] [address] [place], [address] Basophils/100 WBC (Bld) 0.7 % Normal 0-1 [facility] Comment on above: Performed By: #### L 100.0100, L500.4050 #### [facility] [address] [place], [address] Eosinophils/100 WBC (Bld) 1.4 % Normal 0-5 [facility] Comment on above: Performed By: #### L 100.0100, L500.4050 #### [facility] [address] [place], [address] Erythrocyte distribution width (RBC) [Ratio] 12.0 % Normal 11.6-14.6 [facility] Comment on above: Performed By: #### L 100.0100, L500.4050 #### [facility] [address] [place], [address] Hematocrit (Bld) [Volume fraction] 38.6 % Normal 37-47 [facility] Comment on above: Performed By: #### L 100.0100, L500.4050 #### [facility] [address] [place], [address] Hemoglobin (Bld) [Mass/Vol] 13.3 g/dL Normal 12.0-15.0 [facility] Comment on above: Performed By: #### L 100.0100, L500.4050 #### [facility] [address] [place], [address] IG% 0.200 Normal 0.0-0.9 [facility] Comment on above: Result Comment: IG% - Immature Granulocytes (promyelocytes, myelocytes and metamyelocytes) > 1% indicates that a LEFT SHIFT is Present. Performed By: #### L 100.0100, L500.4050 #### [facility] [address] [place], [address] Lymphocytes/100 WBC (Bld) 32.5 % Normal 19-41 [facility] Comment on above: Performed By: #### L 100.0100, L500.4050 #### [facility] [address] [place], [address] MCH (RBC) [Entitic mass] 32.3 pg High 27.0-32.0 [facility] Comment on above: Performed By: #### L 100.0100, L500.4050 #### [facility] [address] [place], [address] MCHC (RBC) [Mass/Vol] 34.5 g/dL Normal 32-36 [facility] Comment on above: Performed By: #### L 100.0100, L500.4050 #### [facility] [address] [place], [address] MCV (RBC) [Entitic vol] 93.7 fL Normal 81-99 [facility] Comment on above: Performed By: #### L 100.0100, L500.4050 #### [facility] [address] [place], [address] Monocytes/100 WBC (Bld) 10.4 % High 0-10 [facility] Comment on above: Performed By: #### L 100.0100, L500.4050 #### [facility] [address] [place], [address] Neutrophils/100 WBC (Bld) 54.8 % Normal 47-70 [facility] Comment on above: Performed By: #### L 100.0100, L500.4050 #### [facility] [address] [place], [address] Nucleated RBC (Bld) [#/Vol] 0 10*3/uL Normal 0-5 [facility] Comment on above: Performed By: #### L 100.0100, L500.4050 #### [facility] [address] [place], [address] Platelet mean volume (Bld) [Entitic vol] 10.8 fL Normal 6.2-12.0 [facility] Comment on above: Performed By: #### L 100.0100, L500.4050 #### [facility] [address] [place], [address] Platelets (Bld) [#/Vol] 170 10*3/uL Normal 150-450 [facility] Comment on above: Performed By: #### L 100.0100, L500.4050 #### [facility] [address] [place], [address] RBC (Bld) [#/Vol] 4.12 10*6/uL Low 4.2-5.4 [facility] Comment on above: Performed By: #### L 100.0100, L500.4050 #### [facility] [address] [place], [address] RDW SD 41.3 fl Normal 35.1-43.9 [facility] Comment on above: Performed By: #### L 100.0100, L500.4050 #### [facility] [address] [place], [address] WBC (Bld) [#/Vol] 4.3 10*3/uL Low 4.4-11.0 [facility] Comment on above: Performed By: #### L 100.0100, L500.4050 #### [facility] [address] [place], [address] Carbon dioxide measurementOr dered By: Cele King on 09-01-2024 CO2 [Moles/Vol] 26.4 mmol/L 22.0-29.0 [facility] Chloride measurementOrdered By: Cele King on 09-01-2024 Chloride [Moles/Vol] 105 mmol/L 96-108 [facility] Comprehensive Metabolic Prof ilon 09-01-2024 Albumin [Mass/Vol] 4.1 g/dL Normal 3.4-4.8 [facility] Comment on above: Performed By: #### L 100.0100, L500.4050 #### [facility] [address] [place], [address] Albumin/Globulin [Mass ratio] 1.6 {ratio} Normal 0.9-2.4 [facility] Comment on above: Performed By: #### L 100.0100, L500.4050 #### [facility] [address] [place], [address] ALK PHOS 81 U/L Normal 35-104 [facility] Comment on above: Performed By: #### L 100.0100, L500.4050 #### [facility] [address] [place], [address] ALT [Catalytic activity/Vol] 22 U/L Normal <=34 [facility] Comment on above: Performed By: #### L 100.0100, L500.4050 #### [facility] [address] [place], [address] Anion gap [Moles/Vol] 9 mmol/L Normal 5-15 [facility] Comment on above: Performed By: #### L 100.0100, L500.4050 #### [facility] [address] [place], [address] AST [Catalytic activity/Vol] 26 U/L Normal <=31 [facility] Comment on above: Performed By: #### L 100.0100, L500.4050 #### [facility] [address] [place], [address] Bilirubin [Mass/Vol] 0.71 mg/dL Normal 0.00-1.30 [facility] Comment on above: Performed By: #### L 100.0100, L500.4050 #### [facility] [address] [place], [address] BUN/CRE 21.5 RATIO High 10-20 [facility] Comment on above: Performed By: #### L 100.0100, L500.4050 #### [facility] [address] [place], [address] Calcium [Mass/Vol] 9.3 mg/dL Normal 7.6-11.0 [facility] Comment on above: Performed By: #### L 100.0100, L500.4050 #### [facility] [address] [place], [address] Chloride [Moles/Vol] 105 mmol/L Normal 96-108 [facility] Comment on above: Performed By: #### L 100.0100, L500.4050 #### [facility] [address] [place], [address] CO2 [Moles/Vol] 26.4 mmol/L Normal 22.0-29.0 [facility] Comment on above: Performed By: #### L 100.0100, L500.4050 #### [facility] [address] [place], [address] Creatinine [Mass/Vol] 0.69 mg/dL Low 0.70-1.20 [facility] Comment on above: Performed By: #### L 100.0100, L500.4050 #### [facility] [address] [place], [address] GFR/1.73 sq M.predicted among non-blacks MDRD (S/P/Bld) [Vol rate/Area] 93 mL/min/{1.73_m2} Normal >60 [facility] Comment on above: Result Comment: mL/m in/1.73m2 CKD-EPI Creatinine Equation (2020) Performed By: #### L 100.0100, L500.4050 #### [facility] [address] [place], [address] Globulin (S) [Mass/Vol] 2.6 g/dL Normal 2.2-4.2 [facility] Comment on above: Performed By: #### L 100.0100, L500.4050 #### [facility] [address] [place], [address] Glucose [Mass/Vol] 91 mg/dL Normal 70-99 [facility] Comment on above: Performed By: #### L 100.0100, L500.4050 #### [facility] [address] [place], [address] Potassium [Moles/Vol] 3.7 mmol/L Normal 3.3-5.1 [facility] Comment on above: Performed By: #### L 100.0100, L500.4050 #### [facility] [address] [place], [address] Sodium [Moles/Vol] 141 mmol/L Normal 133-145 [facility] Comment on above: Performed By: #### L 100.0100, L500.4050 #### [facility] [address] [place], [address] T PROT 6.7 g/dL Normal 5.9-8.4 [facility] Comment on above: Performed By: #### L 100.0100, L500.4050 #### [facility] [address] [place], [address] Urea nitrogen [Mass/Vol] 15 mg/dL Normal 4-19 [facility] Comment on above: Performed By: #### L 100.0100, L500.4050 #### [facility] [address] [place], [address] Eosinophil percentageOrdered By: Cele King on 09-01-2024 Eosinophils/100 WBC (Bld) 1.4 % 0-5 [facility] Erythrocyte distribution wid th ratioOrdered By: Cele King on 09-01-2024 Erythrocyte distribution width (RBC) [Ratio] 12.0 % 11.6-14.6 [facility] Erythrocyte distribution wid th standard deviationOrdered By: Cele King on 09-01-2024 Erythrocyte distribution width (RBC) [Entitic vol] 41.3 fL 35.1-43.9 [facility] Erythrocyte distribution width (RBC) [Ratio] 41.3 fl 35.1-43.9 [facility] GFR/1.73 sq M.predicted jono g non-blacks MDRD (S/P/Bld) [Vol rate/Area]Ordered By: Cele King on 09-01-2024 Estimated GFR (MDRD) Non-Af Amer 93 >60 [facility] Comment on above: mL/min/1.73m2 CKD-EP I Creatinine Equation (2020) Glomerular filtration rate ( GFR) estimation/1.73 sq m using serum, plasma, or whole bOrdered By: Cele King on 09-01-2024 GFR/1.73 sq M.predicted among non-blacks MDRD (S/P/Bld) [Vol rate/Area] 93 mL/min/{1.73_m2} >60 [facility] Comment on above: mL/min/1.73m2 CKD-EP I Creatinine Equation (2020) Hematocrit Auto (Bld) [Volum e fraction]Ordered By: Cele King on 09-01-2024 Hematocrit (Bld) [Volume fraction] 38.6 % 37-47 [facility] Hemoglobin measurementOrdere d By: Cele King on 09-01-2024 Hemoglobin (Bld) [Mass/Vol] 13.3 g/dL 12.0-15.0 [facility] Immature granulocytes/100 WB C Auto (Bld)Ordered By: Cele King on 09-01-2024 Immature granulocytes/100 WBC (Bld) 0.200 % 0.0-0.9 [facility] Comment on above: IG% - Immature Granu locytes (promyelocytes, myelocytes and metamyelocytes) > 1% indicates that a LEFT SHIFT is Present. Laboratory - Chemistry and C hemistry - challengeOrdered By: Cele King on 09-01-2024 AST [Catalytic activity/Vol] 26 U/L <32 [facility] Lymphocytes Auto (Unsp spec) [#/Vol]Ordered By: Cele King on 09-01-2024 Lymphocytes (Bld) [#/Vol] 1.41 10*3/uL 0.83-4.51 [facility] Lymphocytes/100 WBC Auto (Un sp spec)Ordered By: Cele King on 09-01-2024 Lymphocytes/100 WBC (Bld) 32.5 % 19-41 [facility] MCV (mean corpuscular volume ) determinationOrdered By: Cele King on 09-01-2024 MCV (RBC) [Entitic vol] 93.7 fL 81-99 [facility] Mean corpuscular hemoglobin (MCH) determinationOrdered By: Cele King on 09-01-2024 MCH (RBC) [Entitic mass] 32.3 pg High 27.0-32.0 [facility] Mean corpuscular hemoglobin concentration (MCHC) determinationOrdered By: Cele King on 09-01-2024 MCHC (RBC) [Mass/Vol] 34.5 g/dL 32-36 [facility] Mean platelet volume determi nationOrdered By: Cele King on 09-01-2024 Platelet mean volume (Bld) [Entitic vol] 10.8 fL 6.2-12.0 [facility] Monocyte percentageOrdered B y: Cele King on 09-01-2024 Monocytes/100 WBC (Bld) 10.4 % High 0-10 [facility] Neutrophil percentageOrdered By: Cele King on 09-01-2024 Neutrophils/100 WBC (Bld) 54.8 % 47-70 [facility] Nucleated red blood cell per centageOrdered By: Cele King on 09-01-2024 Nucleated RBC/100 WBC (Bld) [Ratio] 0 % 0-5 [facility] Platelet countOrdered By: Ramsey King on 09-01-2024 Platelets (Bld) [#/Vol] 170 10*3/uL 150-450 [facility] RBC Auto (Bld) [#/Vol]Ordere d By: Cele King on 09-01-2024 RBC (Bld) [#/Vol] 4.12 10*6/uL Low 4.2-5.4 [facility] Serum creatinine measurement (mass/volume)Ordered By: Cele King on 09-01-2024 Creatinine [Mass/Vol] 0.69 mg/dL Low 0.70-1.20 [facility] Serum globulin measurementOr dered By: Cele King on 09-01-2024 Globulin (S) [Mass/Vol] 2.6 g/dL 2.2-4.2 [facility] Serum glucose measurement (m ass/volume)Ordered By: Cele King on 09-01-2024 Glucose [Mass/Vol] 91 mg/dL 70-99 [facility] Serum or plasma alanine coronel otransferase (ALT) measurementOrdered By: Cele King on 09-01-2024 ALT [Catalytic activity/Vol] 22 U/L <35 [facility] [facility] Serum or plasma albumin williams urement (mass/volume)Ordered By: Cele King on 09-01-2024 Albumin [Mass/Vol] 4.1 g/dL 3.4-4.8 [facility] Serum or plasma albumin/glob ulin mass ratioOrdered By: Cele King on 09-01-2024 Albumin/Globulin [Mass ratio] 1.6 {ratio} 0.9-2.4 [facility] Serum or plasma alkaline narinder sphatase measurementOrdered By: Cele King on 09-01-2024 ALP [Catalytic activity/Vol] 81 U/L 35-104 [facility] Serum or plasma anion gap de termination (moles/volume)Ordered By: Cele King on 09-01-2024 Anion gap [Moles/Vol] 9 mmol/L 5-15 [facility] Serum or plasma calcium williams urement (mass/volume)Ordered By: Cele King on 09-01-2024 Calcium [Mass/Vol] 9.3 mg/dL 7.6-11.0 [facility] Serum or plasma potassium me asurementOrdered By: Cele King on 09-01-2024 Potassium [Moles/Vol] 3.7 mmol/L 3.3-5.1 [facility] Serum or plasma sodium measu rement (moles/volume)Ordered By: Cele King on 09-01-2024 Sodium [Moles/Vol] 141 mmol/L 133-145 [facility] Serum or plasma urea nitroge n measurement (mass/volume)Ordered By: Cele King on 09-01-2024 Urea nitrogen [Mass/Vol] 15 mg/dL 4-19 [facility] Total proteinOrdered By: Ahmet King on 09-01-2024 Protein [Mass/Vol] 6.7 g/dL 5.9-8.4 [facility] White blood cell (WBC) count Ordered By: Celecastro King on 09-01-2024 WBC (Bld) [#/Vol] 4.3 10*3/uL Low 4.4-11.0 [facility] SCRN MAMM (CAD)W/RUSS BILATo n 06-26-2024 SCRN MAMM (CAD)W/RUSS BILAT [facility] Imaging Services [address] [place] [id number] SCRN MAMM (CAD)W/RUSS BILAT MR#: [id number] Acct: [id number] Name: JOVANNI PATTERSON Rep #: [id number] : 1955 F 69 From: Guero Jose MD PCP: Dr. Fadumo Ruth MD Status: [facility] Study: SCRN MAMM (CAD)W/RUSS BILAT Date of Exam: 06/05 09/25 Exam# [id number] Ordering Dr: Fadumo Ruth [place] [id number] MAMMOGRAPHY - BILATERAL SCREENING 3-D TOMOSYNTHESIS REASON FOR EXAM: Female, 69 years old. screening PERTINENT HISTORY: No significant family history. TECHNIQUE: 2-D mammograms and 3-D Tomosynthesis of the breast (s) were performed. CAD was performed. COMPARISON: 06/24/2023 FINDINGS: The breast composition is composed of scattered fibroglandular density. Scattered benign calcifications are seen. No dense spiculated masses or suspicious microcalcifications are identified. No architectural distortion is identified. There is no skin thickening or retraction. There has been no significant change since the prior study. BI/SCRN MAMM (CAD)W/RUSS BILAT IMPRESSION: No mammographic signs of malignancy. Routine yearly mammograms recommended. ASSESSMENT CATEGORY: BIRADS Category 1: Negative. A letter regarding these results will be sent to the patient by the facility within 30 days. FOLLOW UP RECOMMENDATION: Yearly follow up mammogram recommended. (A) Approximately 10% of breast cancers are not detected by mammography. A normal mammogram should not delay biopsy of a clinically suspicious abnormality. Electronically Signed: Guero Jose MD at 18:06 EST , CC: Dr. Fadumo Ruth MD Top Collar Baster: Signed Normal [facility] Vitamin D,25 Hydroxyon 05-29 Vitamin D 25-OH 40.1 ng/mL Normal [facility] Comment on above: Result Comment: Darlene min D 25(OH) Status Range Deficiency <20 ng/mL (50nmol/L) Insufficiency 20 - 30 ng/mL (50 - 75 nmol/L) Sufficiency 30 - 100 ng/mL (75 - 250 nmol/L) Toxicity >100 ng/mL (>250 nmol/L) Performed By: #### L 100.0100, L500.4050 #### [facility] [address] [place], [place], [id number] PROLACTIN 4465on 05-28-2024 PROLACTIN 14.4 ng/mL Normal 3.6-25.2 [facility] Comment on above: Result Comment: Perf ormed at: - [facility] [address] [id number] Heat Treat Operator: Garrick Guerrero PhD, Phone: [phone] Performed By: #### L 501.7320, L501.0900, L500.4050, L500.4100, L3100.5400, L506.1000, L100.0100 #### [facility] [address] [place], [address] [id number] DOrdered By: Richard Ruth on 05-27-2024 Vitamin D 25-Hydroxy 40.1 ng/mL [facility] Comment on above: Vitamin D 25(OH) Sta tus Range Deficiency <20 ng/mL (50nmol/L) Insufficiency 20 - 30 ng/mL (50 - 75 nmol/L) Sufficiency 30 - 100 ng/mL (75 - 250 nmol/L) Toxicity >100 ng/mL (>250 nmol/L) Absolute neutrophil countOrd ered By: Fadumo Ruth on 05-27-2024 Neutrophils (Bld) [#/Vol] 2.4 10*3/uL 2.0-7.7 [facility] Albumin to globulin ratioOrd ered By: Fadumo Ruth on 05-27-2024 Albumin/Globulin [Mass ratio] 1.3 {ratio} 0.9-2.4 [facility] Basophil percentageOrdered B y: Fadumo Ruth on 05-27-2024 Basophils/100 WBC (Bld) 0.6 % 0-1 [facility] Bilirubin, totalOrdered By: Fadumo Ruth on 05-27-2024 Bilirubin [Mass/Vol] 0.90 mg/dL 0.20-1.00 [facility] Comment on above: For patients on eltr ombopag therapy, use of Dimension [place] TBIL is not recommended. Blood urea nitrogen (BUN)/cr eatinine ratioOrdered By: Fadumo Ruth on 05-27-2024 Urea nitrogen/Creatinine [Mass ratio] 20.3 mg/mg High 04-23 [facility] CBC W/Diff, Automatedon 05-06 Absolute Lymph 1.82 X10 3/uL Normal 0.83-4.51 [facility] Comment on above: Performed By: #### L 501.9520, L501.0900, L500.4050, L500.4100, L3100.5400, L506.1000, L100.0100 #### [facility] [address] [place], [address] Absolute Neut 2.4 X10 3/uL Normal 2.0-7.7 [facility] Comment on above: Performed By: #### L 501.9520, L501.0900, L500.4050, L500.4100, L3100.5400, L506.1000, L100.0100 #### [facility] [address] [place], [address] Basophils/100 WBC (Bld) 0.6 % Normal 0-1 [facility] Comment on above: Performed By: #### L 501.9520, L501.0900, L500.4050, L500.4100, L3100.5400, L506.1000, L100.0100 #### [facility] [address] [place], [address] Eosinophils/100 WBC (Bld) 0.8 % Normal 0-5 [facility] Comment on above: Performed By: #### L 501.9520, L501.0900, L500.4050, L500.4100, L3100.5400, L506.1000, L100.0100 #### [facility] [address] [place], [address] Erythrocyte distribution width (RBC) [Ratio] 11.9 % Normal 11.6-14.6 [facility] Comment on above: Performed By: #### L 501.9520, L501.0900, L500.4050, L500.4100, L3100.5400, L506.1000, L100.0100 #### [facility] [address] [place], [address] Hematocrit (Bld) [Volume fraction] 38.9 % Normal 37-47 [facility] Comment on above: Performed By: #### L 501.9520, L501.0900, L500.4050, L500.4100, L3100.5400, L506.1000, L100.0100 #### [facility] [address] [place], [address] Hemoglobin (Bld) [Mass/Vol] 13.3 g/dL Normal 12.0-15.0 [facility] Comment on above: Performed By: #### L 501.9520, L501.0900, L500.4050, L500.4100, L3100.5400, L506.1000, L100.0100 #### [facility] [address] [place], [address] IG% 0.200 Normal 0.0-0.9 [facility] Comment on above: Result Comment: IG% - Immature Granulocytes (promyelocytes, myelocytes and metamyelocytes) > 1% indicates that a LEFT SHIFT is Present. Performed By: #### L 501.9520, L501.0900, L500.4050, L500.4100, L3100.5400, L506.1000, L100.0100 #### [facility] [address] [place], [address] Lymphocytes/100 WBC (Bld) 37.4 % Normal 19-41 [facility] Comment on above: Performed By: #### L 501.9520, L501.0900, L500.4050, L500.4100, L3100.5400, L506.1000, L100.0100 #### [facility] [address] [place], [address] MCH (RBC) [Entitic mass] 32.1 pg High 27.0-32.0 [facility] Comment on above: Performed By: #### L 501.9520, L501.0900, L500.4050, L500.4100, L3100.5400, L506.1000, L100.0100 #### [facility] [address] [place], [address] MCHC (RBC) [Mass/Vol] 34.2 g/dL Normal 32-36 [facility] Comment on above: Performed By: #### L 501.9520, L501.0900, L500.4050, L500.4100, L3100.5400, L506.1000, L100.0100 #### [facility] [address] [place], [address] MCV (RBC) [Entitic vol] 94.0 fL Normal 81-99 [facility] Comment on above: Performed By: #### L 501.9520, L501.0900, L500.4050, L500.4100, L3100.5400, L506.1000, L100.0100 #### [facility] [address] [place], [address] Monocytes/100 WBC (Bld) 10.9 % High 0-10 [facility] Comment on above: Performed By: #### L 501.9520, L501.0900, L500.4050, L500.4100, L3100.5400, L506.1000, L100.0100 #### [facility] [address] [place], [address] Neutrophils/100 WBC (Bld) 50.1 % Normal 47-70 [facility] Comment on above: Performed By: #### L 501.9520, L501.0900, L500.4050, L500.4100, L3100.5400, L506.1000, L100.0100 #### [facility] [address] [place], [address] Nucleated RBC (Bld) [#/Vol] 0 10*3/uL Normal 0-5 [facility] Comment on above: Performed By: #### L 501.9520, L501.0900, L500.4050, L500.4100, L3100.5400, L506.1000, L100.0100 #### [facility] [address] [place], [address] Platelet mean volume (Bld) [Entitic vol] 10.7 fL Normal 6.2-12.0 [facility] Comment on above: Performed By: #### L 501.9520, L501.0900, L500.4050, L500.4100, L3100.5400, L506.1000, L100.0100 #### [facility] [address] [place], [address] Platelets (Bld) [#/Vol] 170 10*3/uL Normal 150-450 [facility] Comment on above: Performed By: #### L 501.9520, L501.0900, L500.4050, L500.4100, L3100.5400, L506.1000, L100.0100 #### [facility] [address] [place], [address] RBC (Bld) [#/Vol] 4.14 10*6/uL Low 4.2-5.4 [facility] Comment on above: Performed By: #### L 501.9520, L501.0900, L500.4050, L500.4100, L3100.5400, L506.1000, L100.0100 #### [facility] [address] [place], [address] RDW SD 40.0 fl Normal 35.1-43.9 [facility] Comment on above: Performed By: #### L 501.9520, L501.0900, L500.4050, L500.4100, L3100.5400, L506.1000, L100.0100 #### [facility] [address] [place], [address] WBC (Bld) [#/Vol] 4.9 10*3/uL Normal 4.4-11.0 [facility] Comment on above: Performed By: #### L 501.9520, L501.0900, L500.4050, L500.4100, L3100.5400, L506.1000, L100.0100 #### [facility] [address] [place], [place], [address] Carbon dioxide measurementOr dered By: Fadumo Ruth on 05-27-2024 CO2 [Moles/Vol] 29.0 mmol/L 21.0-32.0 [facility] Chloride measurementOrdered By: Fadumo Ruth on 05-27-2024 Chloride [Moles/Vol] 109 mmol/L High 98-107 [facility] Comprehensive Metabolic Prof ilon 05-27-2024 Albumin [Mass/Vol] 3.7 g/dL Normal 3.2-5.0 [facility] Comment on above: Order Comment: CBCD, CMP FOR VALLANKI Performed By: #### L 501.9520, L501.0900, L500.4050, L500.4100, L3100.5400, L506.1000, L100.0100 #### [facility] [address] [place], [place], [id number] Albumin/Globulin [Mass ratio] 1.3 {ratio} Normal 0.9-2.4 [facility] Comment on above: Order Comment: CBCD, CMP FOR VALLANKI Performed By: #### L 501.9520, L501.0900, L500.4050, L500.4100, L3100.5400, L506.1000, L100.0100 #### [facility] [address] [place], [place], [id number] ALK P 79 U/L Normal 45-117 [facility] Comment on above: Order Comment: CBCD, CMP FOR VALLANKI Performed By: #### L 501.9520, L501.0900, L500.4050, L500.4100, L3100.5400, L506.1000, L100.0100 #### [facility] [address] [place], [address] ALT [Catalytic activity/Vol] 25 U/L Normal 13-56 [facility] Comment on above: Order Comment: CBCD, CMP FOR VALLANKI Performed By: #### L 501.9520, L501.0900, L500.4050, L500.4100, L3100.5400, L506.1000, L100.0100 #### [facility] [address] [place], [address] AST [Catalytic activity/Vol] 21 U/L Normal 15-37 [facility] Comment on above: Order Comment: CBCD, CMP FOR VALLANKI Performed By: #### L 501.9520, L501.0900, L500.4050, L500.4100, L3100.5400, L506.1000, L100.0100 #### [facility] [address] [place], [address] Bilirubin [Mass/Vol] 0.90 mg/dL Normal 0.20-1.00 [facility] Comment on above: Order Comment: CBCD, CMP FOR VALLANKI Result Comment: For patients on eltrombopag therapy, use of Dimension [place] TBIL is not recommended. Performed By: #### L 501.9520, L501.0900, L500.4050, L500.4100, L3100.5400, L506.1000, L100.0100 #### [facility] [address] [place], [address] BUN/CRE 20.3 RATIO High 10-20 [facility] Comment on above: Order Comment: CBCD, CMP FOR VALLANKI Performed By: #### L 501.9520, L501.0900, L500.4050, L500.4100, L3100.5400, L506.1000, L100.0100 #### [facility] [address] [place], [address] CA,Total 8.9 mg/dL Normal 8.5-10.1 [facility] Comment on above: Order Comment: CBCD, CMP FOR VALLANKI Performed By: #### L 501.9520, L501.0900, L500.4050, L500.4100, L3100.5400, L506.1000, L100.0100 #### [facility] [address] [place], [address] Chloride [Moles/Vol] 109 mmol/L High 98-107 [facility] Comment on above: Order Comment: CBCD, CMP FOR VALLANKI Performed By: #### L 501.9520, L501.0900, L500.4050, L500.4100, L3100.5400, L506.1000, L100.0100 #### [facility] [address] [place], [address] CO2 [Moles/Vol] 29.0 mmol/L Normal 21.0-32.0 [facility] Comment on above: Order Comment: CBCD, CMP FOR VALLANKI Performed By: #### L 501.9520, L501.0900, L500.4050, L500.4100, L3100.5400, L506.1000, L100.0100 #### [facility] [address] [place], [address] Creatinine [Mass/Vol] 0.69 mg/dL Normal 0.55-1.02 [facility] Comment on above: Order Comment: CBCD, CMP FOR VALLANKI Result Comment: The validity of the calculated GFR GFRAA in patients over 70 years has not been determined. Clinical correlation is essential. Performed By: #### L 501.9520, L501.0900, L500.4050, L500.4100, L3100.5400, L506.1000, L100.0100 #### [facility] [address] [place], [address] EST GFR - AA 108 mL/min Normal >60 [facility] Comment on above: Order Comment: CBCD, CMP FOR VALLANKI Result Comment: Afri can Mozambican GFR Calc Performed By: #### L 501.9520, L501.0900, L500.4050, L500.4100, L3100.5400, L506.1000, L100.0100 #### [facility] [address] [place], [address] GAP 3 Low 5-15 [facility] Comment on above: Order Comment: CBCD, CMP FOR VALLANKI Performed By: #### L 501.9520, L501.0900, L500.4050, L500.4100, L3100.5400, L506.1000, L100.0100 #### [facility] [address] [place], [address] GFR/1.73 sq M.predicted among non-blacks MDRD (S/P/Bld) [Vol rate/Area] 89 mL/min/{1.73_m2} Normal >60 [facility] Comment on above: Order Comment: CBCD, CMP FOR VALLANKI Result Comment: Non- GFR Calc Performed By: #### L 501.9520, L501.0900, L500.4050, L500.4100, L3100.5400, L506.1000, L100.0100 #### [facility] [address] [place], [address] Globulin (S) [Mass/Vol] 2.8 g/dL Normal 2.2-4.2 [facility] Comment on above: Order Comment: CBCD, CMP FOR VALLANKI Performed By: #### L 501.9520, L501.0900, L500.4050, L500.4100, L3100.5400, L506.1000, L100.0100 #### [facility] [address] [place], [address] Glucose [Mass/Vol] 97 mg/dL Normal 74-106 [facility] Comment on above: Order Comment: CBCD, CMP FOR VALLANKI Performed By: #### L 501.9520, L501.0900, L500.4050, L500.4100, L3100.5400, L506.1000, L100.0100 #### [facility] [address] [place], [address] Potassium [Moles/Vol] 3.6 mmol/L Normal 3.5-5.1 [facility] Comment on above: Order Comment: CBCD, CMP FOR VALLANKI Performed By: #### L 501.9520, L501.0900, L500.4050, L500.4100, L3100.5400, L506.1000, L100.0100 #### [facility] [address] [place], [address] Sodium [Moles/Vol] 141 mmol/L Normal 136-145 [facility] Comment on above: Order Comment: CBCD, CMP FOR VALLANKI Performed By: #### L 501.9520, L501.0900, L500.4050, L500.4100, L3100.5400, L506.1000, L100.0100 #### [facility] [address] [place], [place], [id number] (112) T PROT 6.5 g/dL Normal 6.4-8.2 [facility] Comment on above: Order Comment: CBCD, CMP FOR VALLANKI Performed By: #### L 501.9520, L501.0900, L500.4050, L500.4100, L3100.5400, L506.1000, L100.0100 #### [facility] [address] [place], [place], [phone] (054) Urea nitrogen [Mass/Vol] 14 mg/dL Normal 7-18 [facility] Comment on above: Order Comment: CBCD, CMP FOR VALLANKI Performed By: #### L 501.9520, L501.0900, L500.4050, L500.4100, L3100.5400, L506.1000, L100.0100 #### [facility] [address] [place], [address] Eosinophil percentageOrdered By: Fadumo Ruth on 05-27-2024 Eosinophils/100 WBC (Bld) 0.8 % 0-5 [facility] Erythrocyte distribution wid th ratioOrdered By: Fadumo Ruth on 05-27-2024 Erythrocyte distribution width (RBC) [Ratio] 11.9 % 11.6-14.6 [facility] Erythrocyte distribution wid th standard deviationOrdered By: Fadumo Ruth on 05-27-2024 Erythrocyte distribution width (RBC) [Entitic vol] 40.0 fL 35.1-43.9 [facility] Estimated glomerular filtrat ion rate (GFR) AmericanOrdered By: Fadumo Ruth on 05-27-2024 Estimated GFR (MDRD) Amer 108 mL/min >60 [facility] Comment on above: GFR Calc Glomerular filtration rate ( GFR) estimationOrdered By: Fadumo Ruth on 05-27-2024 Estimated GFR (MDRD) Non-Af Amer 89 mL/min >60 [facility] Comment on above: Non- GFR Calc Glucose measurementOrdered B y: Fadumo Ruth on 05-27-2024 Glucose [Mass/Vol] 97 mg/dL 74-106 [facility] Hematocrit Auto (Bld) [Volum e fraction]Ordered By: Fadumo Ruth on 05-27-2024 Hematocrit (Bld) [Volume fraction] 38.9 % 37-47 [facility] Hemoglobin measurementOrdere d By: Fadumo Ruth on 05-27-2024 Hemoglobin (Bld) [Mass/Vol] 13.3 g/dL 12.0-15.0 [facility] High density lipoprotein (HD L) measurementOrdered By: Fadumo Ruth on 05-27-2024 Cholesterol in HDL [Mass/Vol] 67 mg/dL >40 [facility] Comment on above: The drugs N-Acetylcy steine and Metamizole may falsely depress this assay. Reference Range HDL <40 mg/dL Low HDL Cholesterol HDL >or= 60 mg/dL High HDL Cholesterol Immature granulocytes/100 WB C Auto (Bld)Ordered By: Fadumo Ruth on 05-27-2024 Immature granulocytes/100 WBC (Bld) 0.200 % 0.0-0.9 [facility] Comment on above: IG% - Immature Granu locytes (promyelocytes, myelocytes and metamyelocytes) > 1% indicates that a LEFT SHIFT is Present. Laboratory - Chemistry and C hemistry - challengeOrdered By: Fadumo Ruth on 05-27-2024 AST [Catalytic activity/Vol] 21 U/L 15-37 [facility] Lipid Profileon 05-27-2024 Cholesterol [Mass/Vol] 202 mg/dL High 200 [facility] Comment on above: Order Comment: CBCD, CMP FOR VALLANKI Result Comment: <200 mg/dL Desirable 200-240 mg/dL Borderline >240 mg/dL High Risk Performed By: #### L 501.9520, L501.0900, L500.4050, L500.4100, L3100.5400, L506.1000, L100.0100 #### [facility] [address] [place], [address] Cholesterol in HDL [Mass/Vol] 67 mg/dL Normal [facility] Comment on above: Order Comment: CBCD, CMP FOR VALLANKI Result Comment: The drugs N-Acetylcysteine and Metamizole may falsely depress this assay. Reference Range HDL <40 mg/dL Low HDL Cholesterol HDL >or= 60 mg/dL High HDL Cholesterol Performed By: #### L 501.9520, L501.0900, L500.4050, L500.4100, L3100.5400, L506.1000, L100.0100 #### [facility] [address] [place], [address] Cholesterol in LDL [Mass/Vol] 111 mg/dL Normal 0-130 [facility] Comment on above: Order Comment: CBCD, CMP FOR VALLANKI Performed By: #### L 501.9520, L501.0900, L500.4050, L500.4100, L3100.5400, L506.1000, L100.0100 #### [facility] [address] [place], [address] Cholesterol in VLDL [Mass/Vol] 24 mg/dL Normal 5-40 [facility] Comment on above: Order Comment: CBCD, CMP FOR VALLANKI Performed By: #### L 501.9520, L501.0900, L500.4050, L500.4100, L3100.5400, L506.1000, L100.0100 #### [facility] [address] [place], [place], [id number] Triglyceride [Mass/Vol] 119 mg/dL Normal [facility] Comment on above: Order Comment: CBCD, CMP FOR VALLANKI Result Comment: The drugs N-Acetylcysteine and Metamizole may falsely depress this assay. Serum Triglycerides Reference Interval Normal <150 mg/dL Borderline high 150 - 199 mg/dL High 200 - 499 mg/dL Very High > or = 500 mg/dL Performed By: #### L 501.9520, L501.0900, L500.4050, L500.4100, L3100.5400, L506.1000, L100.0100 #### [facility] [address] [place], [address] Low density lipoprotein (LDL ) cholesterol measurementOrdered By: Fadumo Ruth on 05-27-2024 Cholesterol in LDL [Mass/Vol] 111 mg/dL 0-130 [facility] Lymphocytes Auto (Unsp spec) [#/Vol]Ordered By: Fadumo Ruth on 05-27-2024 Lymphocytes (Bld) [#/Vol] 1.82 10*3/uL 0.83-4.51 [facility] Lymphocytes/100 WBC Auto (Un sp spec)Ordered By: Fadumo Ruth on 05-27-2024 Lymphocytes/100 WBC (Bld) 37.4 % 19-41 [facility] MCV (mean corpuscular volume ) determinationOrdered By: Fadumo Ruth on 05-27-2024 MCV (RBC) [Entitic vol] 94.0 fL 81-99 [facility] Mean corpuscular hemoglobin (MCH) determinationOrdered By: Fadumo Ruth on 05-27-2024 MCH (RBC) [Entitic mass] 32.1 pg High 27.0-32.0 [facility] Mean corpuscular hemoglobin concentration (MCHC) determinationOrdered By: Fadumo Ruth on 05-27-2024 MCHC (RBC) [Mass/Vol] 34.2 g/dL 32-36 [facility] Mean platelet volume determi nationOrdered By: Fadumo Ruth on 05-27-2024 Platelet mean volume (Bld) [Entitic vol] 10.7 fL 6.2-12.0 [facility] Monocyte percentageOrdered B y: Fadumo Ruth on 05-27-2024 Monocytes/100 WBC (Bld) 10.9 % High 0-10 [facility] Neutrophil percentageOrdered By: Fadumo Ruth on 05-27-2024 Neutrophils/100 WBC (Bld) 50.1 % 47-70 [facility] Nucleated red blood cell per centageOrdered By: Fadumo Ruth on 05-27-2024 Nucleated RBC/100 WBC (Bld) [Ratio] 0 % 0-5 [facility] Platelet countOrdered By: Melinda Ruth on 05-27-2024 Platelets (Bld) [#/Vol] 170 10*3/uL 150-450 [facility] Potassium measurementOrdered By: Fadumo Ruth on 05-27-2024 Potassium [Moles/Vol] 3.6 mmol/L 3.5-5.1 [facility] Prolactin [Mass/Vol]Ordered By: Fadumo Ruth on 05-27-2024 Prolactin 14.4 ng/mL 3.6-25.2 [facility] Comment on above: Performed at: [address] [id number] Director: Garrick Guerrero PhD, Phone: [phone] Protein+Creatinine Ratio,Uri neon 05-27-2024 PROT:CRE RATIO 73 mg/g CRE Normal 0-200 [facility] Comment on above: Performed By: #### L 501.9520, L501.0900, L500.4050, L500.4100, L3100.5400, L506.1000, L100.0100 #### [facility] [address] [facility] [place], [address] Protein (U) [Mass/Vol] 16.2 mg/dL High <11.9 [facility] Comment on above: Performed By: #### L 501.9520, L501.0900, L500.4050, L500.4100, L3100.5400, L506.1000, L100.0100 #### [facility] [address] [place], [address] UR CREAT 223.00 mg/dL Normal NO RANGE EST. [facility] Comment on above: Performed By: #### L 501.9520, L501.0900, L500.4050, L500.4100, L3100.5400, L506.1000, L100.0100 #### [facility] [address] [place], [address] Protein/Creatinine (U) [Mass ratio]Ordered By: Fadumo Ruth on 05-27-2024 Urine Protein/Creatinine Ratio 73 mg/g CRE 0-200 [facility] RBC Auto (Bld) [#/Vol]Ordere d By: Fadumo Ruth on 05-27-2024 RBC (Bld) [#/Vol] 4.14 10*6/uL Low 4.2-5.4 [facility] Random urine protein measure mentOrdered By: Fadumo Ruth on 05-27-2024 Protein (U) [Mass/Vol] 16.2 mg/dL High 0.0-11.8 [facility] Serum anion gap measurementO rdered By: Fadumo Ruth on 05-27-2024 Anion gap [Moles/Vol] 3 mmol/L Low 5-15 [facility] Serum globulin measurementOr dered By: Fadumo Ruth on 05-27-2024 Globulin (S) [Mass/Vol] 2.8 g/dL 2.2-4.2 [facility] Serum or plasma alanine coronel otransferase (ALT) measurementOrdered By: Fadumo Ruth on 05-27-2024 ALT [Catalytic activity/Vol] 25 U/L 13-56 [facility] Serum or plasma albumin williams urement (mass/volume)Ordered By: Fadumo Ruth on 05-27-2024 Albumin [Mass/Vol] 3.7 g/dL 3.2-5.0 [facility] Serum or plasma alkaline narinder sphatase measurementOrdered By: Fadumo Ruth on 05-27-2024 ALP [Catalytic activity/Vol] 79 U/L 45-117 [facility] Serum or plasma calcium williams urement (mass/volume)Ordered By: Fadumo Ruth on 05-27-2024 Calcium [Mass/Vol] 8.9 mg/dL 8.5-10.1 [facility] Serum or plasma cholesterol measurement (mass/volume)Ordered By: Fadumo Ruth on 05-27-2024 Cholesterol [Mass/Vol] 202 mg/dL High <200 [facility] Comment on above: <200 mg/dL Desirable 200-240 mg/dL Borderline >240 mg/dL High Risk Serum or plasma creatinine m easurement (mass/volume)Ordered By: Fadumo Ruth on 05-27-2024 Creatinine [Mass/Vol] 0.69 mg/dL 0.55-1.02 [facility] Comment on above: The validity of the calculated GFR & GFRAA in patients over 70 years has not been determined. Clinical correlation is essential. Serum or plasma urea nitroge n measurement (mass/volume)Ordered By: Fadumo Ruth on 05-27-2024 Urea nitrogen [Mass/Vol] 14 mg/dL 7-18 [facility] Sodium levelOrdered By: Fadumo Ruth on 05-27-2024 Sodium [Moles/Vol] 141 mmol/L 136-145 [facility] TSH QnOrdered By: Fadumo loco on 05-27-2024 Thyroid Stimulating Hormone (TSH) 1.410 uIU/mL 0.358-3.740 [facility] Thyroid Stim Hormone (TSH)on 05-27-2024 TSH 1.410 uIU/mL Normal 0.358-3.740 [facility] Comment on above: Order Comment: CBCD, CMP FOR HELLEN Performed By: #### L [id number], L501.0900, L500.4050, L500.4100, L3100.5400, L506.1000, L100.0100 #### [facility] [address] [place], [place], [id number] Total proteinOrdered By: Fadumo Ruth on 05-27-2024 Protein [Mass/Vol] 6.5 g/dL 6.4-8.2 [facility] Triglycerides measurementOrd ered By: Fadumo Ruth on 05-27-2024 Triglyceride [Mass/Vol] 119 mg/dL <199 [facility] Comment on above: The drugs N-Acetylcy steine and Metamizole may falsely depress this assay.Serum Triglycerides Reference Interval Normal <150 mg/dL Borderline high 150 - 199 mg/dL High 200 - 499 mg/dL Very High > or = 500 mg/dL Urine creatinine measurement (mass/volume)Ordered By: Fadumo Ruth on 05-27-2024 Creatinine (U) [Mass/Vol] 223.00 mg/dL NO RANGE EST. [facility] Very low density lipoprotein (VLDL) cholesterol measurementOrdered By: Fadumo Ruth on 05-27-2024 VLDL Cholesterol 24 mg/dL 5-40 [facility] White blood cell (WBC) count Ordered By: Fadumo Ruth on 05-27-2024 WBC (Bld) [#/Vol] 4.9 10*3/uL 4.4-11.0 [facility] Absolute lymphocyte countOrd ered By: Cele King on 08-26-2023 Lymphocytes Auto (Unsp spec) [#/Vol] 1.97 10*3/uL 0.83-4.51 [facility] Automated lymphocyte count a s percentage of total leukocytesOrdered By: Cele King on 08-26-2023 Lymphocytes/100 WBC Auto (Unsp spec) 37.1 % 19-41 [facility] Basophil percentageOrdered B y: Cele King on 08-26-2023 Basophils/100 WBC (Bld) 0.8 % 0-1 [facility] Bilirubin [Mass/Vol] 0.60 mg/dL 0.20-1.00 [facility] Comment on above: For patients on eltr ombopag therapy, use of [place] TBIL is not recommended. Chloride [Moles/Vol] 111 mmol/L 98-107 [facility] Eosinophils/100 WBC (Bld) 1.7 % 0-5 [facility] Glucose [Mass/Vol] 68 mg/dL 74-106 [facility] Hemoglobin (Bld) [Mass/Vol] 13.5 g/dL 12.0-15.0 [facility] Monocytes/100 WBC (Bld) 11.5 % 0-10 [facility] Neutrophils (Bld) [#/Vol] 2.6 10*3/uL 2.0-7.7 [facility] Neutrophils/100 WBC (Bld) 48.7 % 47-70 [facility] Potassium [Moles/Vol] 3.5 mmol/L 3.5-5.1 [facility] Protein [Mass/Vol] 6.8 g/dL 6.4-8.2 [facility] Sodium [Moles/Vol] 141 mmol/L 136-145 [facility] WBC (Bld) [#/Vol] 5.3 10*3/uL 4.4-11.0 [facility] Determination of erythrocyte mean corpuscular volume (MCV)Ordered By: Cele King on 08-26-2023 MCV (RBC) [Entitic vol] 94.1 fL 81-99 [facility] Erythrocyte distribution wid th ratioOrdered By: Cele King on 08-26-2023 Erythrocyte distribution width (RBC) [Ratio] 11.9 % 11.6-14.6 [facility] Erythrocyte distribution wid th standard deviationOrdered By: Cele King on 08-26-2023 Erythrocyte distribution width (RBC) [Entitic vol] 40.5 fL 35.1-43.9 [facility] Hematocrit Auto (Bld) [Volum e fraction]Ordered By: Cele King on 08-26-2023 Hematocrit (Bld) [Volume fraction] 40.0 % 37-47 [facility] Immature granulocytes/100 WB C Auto (Bld)Ordered By: Cele King on 08-26-2023 Immature granulocytes/100 WBC (Bld) 0.200 % 0.0-0.9 [facility] Comment on above: IG% - Immature Granu locytes (promyelocytes, myelocytes and metamyelocytes) > 1% indicates that a LEFT SHIFT is Present. Laboratory - Chemistry and C hemistry - challengeOrdered By: Cele King on 08-26-2023 Albumin/Globulin [Mass ratio] 1.1 {ratio} 0.9-2.4 [facility] ALP [Catalytic activity/Vol] 73 U/L 45-117 [facility] ALT [Catalytic activity/Vol] 22 U/L 13-56 [facility] CO2 [Moles/Vol] 29.0 mmol/L 21.0-32.0 [facility] Globulin (S) [Mass/Vol] 3.2 g/dL 2.2-4.2 [facility] Urea nitrogen/Creatinine [Mass ratio] 28.3 mg/mg 10-20 [facility] - Hematology and Cell countsOrdered By: Cele King on 08-26-2023 MCH (RBC) [Entitic mass] 31.8 pg 27.0-32.0 [facility] MCHC (RBC) [Mass/Vol] 33.8 g/dL 32-36 [facility] Nucleated RBC/100 WBC (Bld) [Ratio] 0 % 0-5 [facility] Platelet mean volume (Bld) [Entitic vol] 10.9 fL 6.2-12.0 [facility] Platelets (Bld) [#/Vol] 164 10*3/uL 150-450 [facility] No Panel InformationOrdered By: Cele King on 08-26-2023 Estimated GFR (MDRD) Amer 105 mL/min >60 [facility] Comment on above: GFR Calc Estimated GFR (MDRD) Non-Af Amer 87 mL/min >60 [facility] Comment on above: Non- GFR Calc RBC Auto (Bld) [#/Vol]Ordere d By: Cele King on 08-26-2023 RBC (Bld) [#/Vol] 4.25 10*6/uL 4.2-5.4 [facility] Serum or plasma calcium williams urement (mass/volume)Ordered By: Cele King on 08-26-2023 Calcium [Mass/Vol] 9.4 mg/dL 8.5-10.1 [facility] Serum or plasma creatinine m easurement (mass/volume)Ordered By: Cele King on 08-26-2023 Creatinine [Mass/Vol] 0.71 mg/dL 0.55-1.02 [facility] Comment on above: The validity of the calculated GFR & GFRAA in patients over 70 years has not been determined. Clinical correlation is essential. Serum or plasma urea nitroge n measurement (mass/volume)Ordered By: Cele King on 08-26-2023 Urea nitrogen [Mass/Vol] 20 mg/dL 7-18 [facility] Thin prep Papanicolaou smear with manual screeningOrdered By: Cele King on 08-26-2023 Thin prep Papanicolaou smear with manual screening 3.6 g/dL 3.2-5.0 [facility] Thin prep Papanicolaou smear with manual screening 18 U/L 15-37 [facility] Thin prep Papanicolaou smear with manual screening 1 5-15 [facility] Basophil percentageOrdered B y: Fadumo Ruth on 05-24-2023 Cholesterol [Mass/Vol] 199 mg/dL <200 [facility] Comment on above: <200 mg/dL Desirable 200-240 mg/dL Borderline >240 mg/dL High Risk Triglyceride [Mass/Vol] 164 mg/dL <199 [facility] Comment on above: The drugs N-Acetylcy steine and Metamizole may falsely depress this assay.Serum Triglycerides Reference Interval Normal <150 mg/dL Borderline high 150 - 199 mg/dL High 200 - 499 mg/dL Very High > or = 500 mg/dL No Panel InformationOrdered By: Fadumo Ruth on 05-24-2023 Urine Microalbumin/Creatinine Ratio 10.8 mg/g CRE <30 [facility] Serum or plasma cholesterol in HDL measurement (mass/volume)Ordered By: Fadumo Ruth on 05-24-2023 Cholesterol in HDL [Mass/Vol] 63 mg/dL >40 [facility] Comment on above: The drugs N-Acetylcy steine and Metamizole may falsely depress this assay. Reference Range HDL <40 mg/dL Low HDL Cholesterol HDL >or= 60 mg/dL High HDL Cholesterol Serum or plasma cholesterol in VLDL measurement (mass/volume)Ordered By: Fadumo Ruth on 05-24-2023 Cholesterol in VLDL [Mass/Vol] 33 mg/dL 5-40 [facility] Serum or plasma low density lipoprotein (LDL) cholesterol measurement (mass/volume)Ordered By: Fadumo Ruth on 05-24-2023 Cholesterol in LDL [Mass/Vol] 103 mg/dL 0-130 [facility] Serum or plasma prolactin me asurement (mass/volume)Ordered By: Fadumo Ruth on 05-24-2023 Prolactin [Mass/Vol] 11.1 ng/mL [facility] Comment on above: NORMAL REFERENCE RAN GES FEMALE NON- 2.2 - 30.3 ng/mL 8.1 - 347.6 ng/mL POST-MENOPAUSAL 0.7 - 31.5 ng/mL MALE 2.5 - 17.4 ng/mL Thin prep Papanicolaou smear with manual screeningOrdered By: Fadumo Ruth on 05-24-2023 Thin prep Papanicolaou smear with manual screening 11.3 mg/L NO RANGE EST. [facility] Urine creatinine measurement (mass/volume)Ordered By: Fadumo Ruth on 05-24-2023 Creatinine (U) [Mass/Vol] 105.00 mg/dL NO RANGE EST. [facility] Whole blood hemoglobin A1c/t otal hemoglobin ratio (mass fraction)Ordered By: Fadumo Ruth on 05-24-2023 HbA1c (Bld) [Mass fraction] 5.1 % 3.8-5.6 [facility] Comment on above: Normal < 5.7 % Predi abetic 5.7 - 6.4 % Diabetic >or= 6.5 % Please note range changes. Absolute lymphocyte countOrd ered By: Cele King on 05-13-2023 Lymphocytes Auto (Unsp spec) [#/Vol] 2.15 10*3/uL 0.83-4.51 [facility] Basophil percentageOrdered B y: Cele King on 05-13-2023 Basophils/100 WBC (Bld) 0.5 % 0-1 [facility] Bilirubin [Mass/Vol] 0.50 mg/dL 0.20-1.00 [facility] Comment on above: For patients on eltr ombopag therapy, use of [place] TBIL is not recommended. Chloride [Moles/Vol] 107 mmol/L 98-107 [facility] Eosinophils/100 WBC (Bld) 0.7 % 0-5 [facility] Glucose [Mass/Vol] 100 mg/dL 74-106 [facility] Comment on above: Fasting Glucose resu lt from 100 to 125 mg/dL suggests IMPAIRED HOMEOSTASIS per A.D.A. criteria. Neutrophils (Bld) [#/Vol] 4.4 10*3/uL 2.0-7.7 [facility] Neutrophils/100 WBC (Bld) 59.9 % 47-70 [facility] Potassium [Moles/Vol] 3.9 mmol/L 3.5-5.1 [facility] Protein [Mass/Vol] 6.7 g/dL 6.4-8.2 [facility] Sodium [Moles/Vol] 140 mmol/L 136-145 [facility] WBC (Bld) [#/Vol] 7.4 10*3/uL 4.4-11.0 [facility] Blood erythrocytes count (nu mber/volume)Ordered By: Cele King on 05-13-2023 RBC (Bld) [#/Vol] 4.14 10*6/uL 4.2-5.4 [facility] Blood hemoglobin measurement (mass/volume)Ordered By: Cele King on 05-13-2023 Hemoglobin (Bld) [Mass/Vol] 13.4 g/dL 12.0-15.0 [facility] Blood lymphocytes/100 leukoc ytesOrdered By: Cele King on 05-13-2023 Lymphocytes/100 WBC (Bld) 29.1 % 19-41 [facility] Blood monocytes/100 leukocyt esOrdered By: Cele King on 05-13-2023 Monocytes/100 WBC (Bld) 9.5 % 0-10 [facility] Blood platelet mean volumeOr dered By: Cele King on 05-13-2023 Platelet mean volume (Bld) [Entitic vol] 11.2 fL 6.2-12.0 [facility] Determination of erythrocyte mean corpuscular volume (MCV)Ordered By: Cele King on 05-13-2023 MCV (RBC) [Entitic vol] 96.9 fL 81-99 [facility] Hematocrit Auto (Bld) [Volum e fraction]Ordered By: Cele King on 05-13-2023 Hematocrit (Bld) [Volume fraction] 40.1 % 37-47 [facility] Laboratory - Chemistry and C hemistry - challengeOrdered By: Cele King on 05-13-2023 ALP [Catalytic activity/Vol] 79 U/L 45-117 [facility] ALT [Catalytic activity/Vol] 23 U/L 13-56 [facility] CO2 [Moles/Vol] 31.0 mmol/L 21.0-32.0 [facility] Globulin (S) [Mass/Vol] 3.1 g/dL 2.2-4.2 [facility] Urea nitrogen/Creatinine [Mass ratio] 18.9 mg/mg 10-20 [facility] - Hematology and Cell countsOrdered By: Cele King on 05-13-2023 Erythrocyte distribution width (RBC) [Entitic vol] 43.8 fL 35.1-43.9 [facility] Erythrocyte distribution width (RBC) [Ratio] 12.5 % 11.6-14.6 [facility] Immature granulocytes/100 WBC (Bld) 0.300 % 0.0-0.9 [facility] Comment on above: IG% - Immature Granu locytes (promyelocytes, myelocytes and metamyelocytes) > 1% indicates that a LEFT SHIFT is Present. MCH (RBC) [Entitic mass] 32.4 pg 27.0-32.0 [facility] Nucleated RBC/100 WBC (Bld) [Ratio] 0 % 0-5 [facility] MCHC Auto (RBC) [Mass/Vol]Or dered By: Cele King on 05-13-2023 MCHC (RBC) [Mass/Vol] 33.4 g/dL 32-36 [facility] No Panel InformationOrdered By: Cele King on 05-13-2023 Estimated GFR (MDRD) Amer 100 mL/min >60 [facility] Comment on above: GFR Calc Estimated GFR (MDRD) Non-Af Amer 83 mL/min >60 [facility] Comment on above: Non- GFR Calc Platelets bldOrdered By: Ahmet King on 05-13-2023 Platelets (Bld) [#/Vol] 196 10*3/uL 150-450 [facility] Serum or plasma albumin williams urement (mass/volume)Ordered By: Cele King on 05-13-2023 Albumin [Mass/Vol] 3.6 g/dL 3.2-5.0 [facility] Serum or plasma albumin/glob ulin mass ratioOrdered By: Cele King on 05-13-2023 Albumin/Globulin [Mass ratio] 1.2 {ratio} 0.9-2.4 [facility] Serum or plasma calcium williams urement (mass/volume)Ordered By: Cele King on 05-13-2023 Calcium [Mass/Vol] 8.9 mg/dL 8.5-10.1 [facility] Serum or plasma creatinine m easurement (mass/volume)Ordered By: Cele King on 05-13-2023 Creatinine [Mass/Vol] 0.74 mg/dL 0.55-1.02 [facility] Comment on above: The validity of the calculated GFR & GFRAA in patients over 70 years has not been determined. Clinical correlation is essential. Serum or plasma urea nitroge n measurement (mass/volume)Ordered By: Cele King on 05-13-2023 Urea nitrogen [Mass/Vol] 14 mg/dL 7-18 [facility] Thin prep Papanicolaou smear with manual screeningOrdered By: [facility] Fernando on 05-13-2023 Thin prep Papanicolaou smear with manual screening 18 U/L 15-37 [facility] Thin prep Papanicolaou smear with manual screening 2 5-15 [facility] Absolute lymphocyte countOrd ered By: Cele King on 02-05-2023 Lymphocytes Auto (Unsp spec) [#/Vol] 2.32 10*3/uL 0.83-4.51 [facility] Basophil percentageOrdered B y: Cele King on 02-05-2023 Basophils/100 WBC (Bld) 0.8 % 0-1 [facility] Bilirubin [Mass/Vol] 0.40 mg/dL 0.20-1.00 [facility] Comment on above: For patients on eltr ombopag therapy, use of [place] TBIL is not recommended. Chloride [Moles/Vol] 109 mmol/L 98-107 [facility] Eosinophils/100 WBC (Bld) 0.8 % 0-5 [facility] Glucose [Mass/Vol] 90 mg/dL 74-106 [facility] Neutrophils (Bld) [#/Vol] 2.3 10*3/uL 2.0-7.7 [facility] Neutrophils/100 WBC (Bld) 44.2 % 47-70 [facility] Potassium [Moles/Vol] 3.6 mmol/L 3.5-5.1 [facility] Protein [Mass/Vol] 6.6 g/dL 6.4-8.2 [facility] Sodium [Moles/Vol] 141 mmol/L 136-145 [facility] WBC (Bld) [#/Vol] 5.2 10*3/uL 4.4-11.0 [facility] Blood erythrocytes count (nu mber/volume)Ordered By: Cele King on 02-05-2023 RBC (Bld) [#/Vol] 4.12 10*6/uL 4.2-5.4 [facility] Blood hemoglobin measurement (mass/volume)Ordered By: Cele King on 02-05-2023 Hemoglobin (Bld) [Mass/Vol] 13.3 g/dL 12.0-15.0 [facility] Blood lymphocytes/100 leukoc ytesOrdered By: Cele Kign on 02-05-2023 Lymphocytes/100 WBC (Bld) 44.3 % 19-41 [facility] Blood monocytes/100 leukocyt esOrdered By: Cele King on 02-05-2023 Monocytes/100 WBC (Bld) 9.7 % 0-10 [facility] Blood platelet mean volumeOr dered By: Cele King on 02-05-2023 Platelet mean volume (Bld) [Entitic vol] 11.1 fL 6.2-12.0 [facility] Determination of erythrocyte mean corpuscular volume (MCV)Ordered By: Cele King on 02-05-2023 MCV (RBC) [Entitic vol] 95.1 fL 81-99 [facility] Hematocrit Auto (Bld) [Volum e fraction]Ordered By: Cele King on 02-05-2023 Hematocrit (Bld) [Volume fraction] 39.2 % 37-47 [facility] Laboratory - Chemistry and C hemistry - challengeOrdered By: Cele King on 02-05-2023 ALP [Catalytic activity/Vol] 79 U/L 45-117 [facility] ALT [Catalytic activity/Vol] 25 U/L 13-56 [facility] CO2 [Moles/Vol] 29.0 mmol/L 21.0-32.0 [facility] Globulin (S) [Mass/Vol] 3.1 g/dL 2.2-4.2 [facility] Urea nitrogen/Creatinine [Mass ratio] 19.0 mg/mg 10-20 [facility] - Hematology and Cell countsOrdered By: Cele King on 02-05-2023 Erythrocyte distribution width (RBC) [Entitic vol] 40.5 fL 35.1-43.9 [facility] Erythrocyte distribution width (RBC) [Ratio] 11.9 % 11.6-14.6 [facility] Immature granulocytes/100 WBC (Bld) 0.200 % 0.0-0.9 [facility] Comment on above: IG% - Immature Granu locytes (promyelocytes, myelocytes and metamyelocytes) > 1% indicates that a LEFT SHIFT is Present. MCH (RBC) [Entitic mass] 32.3 pg 27.0-32.0 [facility] Nucleated RBC/100 WBC (Bld) [Ratio] 0 % 0-5 [facility] MCHC Auto (RBC) [Mass/Vol]Or dered By: Cele King on 02-05-2023 MCHC (RBC) [Mass/Vol] 33.9 g/dL 32-36 [facility] No Panel InformationOrdered By: Cele King on 02-05-2023 Estimated GFR (MDRD) Amer 109 mL/min >60 [facility] Comment on above: GFR Calc Estimated GFR (MDRD) Non-Af Amer 90 mL/min >60 [facility] Comment on above: Non- GFR Calc Platelets bldOrdered By: Ahmet King on 02-05-2023 Platelets (Bld) [#/Vol] 162 10*3/uL 150-450 [facility] Serum or plasma albumin williams urement (mass/volume)Ordered By: Cele King on 02-05-2023 Albumin [Mass/Vol] 3.5 g/dL 3.2-5.0 [facility] Serum or plasma albumin/glob ulin mass ratioOrdered By: Cele King on 02-05-2023 Albumin/Globulin [Mass ratio] 1.1 {ratio} 0.9-2.4 [facility] Serum or plasma calcium williams urement (mass/volume)Ordered By: Cele King on 02-05-2023 Calcium [Mass/Vol] 8.9 mg/dL 8.5-10.1 [facility] Serum or plasma creatinine m easurement (mass/volume)Ordered By: Cele King on 02-05-2023 Creatinine [Mass/Vol] 0.69 mg/dL 0.55-1.02 [facility] Comment on above: The validity of the calculated GFR & GFRAA in patients over 70 years has not been determined. Clinical correlation is essential. Serum or plasma urea nitroge n measurement (mass/volume)Ordered By: Cele King on 02-05-2023 Urea nitrogen [Mass/Vol] 13 mg/dL 7-18 [facility] Thin prep Papanicolaou smear with manual screeningOrdered By: [facility] Fernando on 02-05-2023 Thin prep Papanicolaou smear with manual screening 20 U/L 15-37 [facility] Thin prep Papanicolaou smear with manual screening 3 5-15 [facility] Absolute lymphocyte countOrd ered By: Cele King on 11-13-2022 Lymphocytes Auto (Unsp spec) [#/Vol] 1.85 10*3/uL 0.83-4.51 [facility] Basophil percentageOrdered B y: Cele King on 11-13-2022 Basophils/100 WBC (Bld) 0.7 % 0-1 [facility] Bilirubin [Mass/Vol] 0.50 mg/dL 0.20-1.00 [facility] Comment on above: For patients on eltr ombopag therapy, use of [place] TBIL is not recommended. Chloride [Moles/Vol] 108 mmol/L 98-107 [facility] Eosinophils/100 WBC (Bld) 0.7 % 0-5 [facility] Glucose [Mass/Vol] 94 mg/dL 74-106 [facility] Neutrophils (Bld) [#/Vol] 3.4 10*3/uL 2.0-7.7 [facility] Neutrophils/100 WBC (Bld) 57.2 % 47-70 [facility] Potassium [Moles/Vol] 3.8 mmol/L 3.5-5.1 [facility] Protein [Mass/Vol] 6.8 g/dL 6.4-8.2 [facility] Sodium [Moles/Vol] 140 mmol/L 136-145 [facility] WBC (Bld) [#/Vol] 5.9 10*3/uL 4.4-11.0 [facility] Blood erythrocytes count (nu mber/volume)Ordered By: Cele King on 11-13-2022 RBC (Bld) [#/Vol] 4.16 10*6/uL 4.2-5.4 [facility] Blood hemoglobin measurement (mass/volume)Ordered By: Cele King on 11-13-2022 Hemoglobin (Bld) [Mass/Vol] 13.6 g/dL 12.0-15.0 [facility] Blood lymphocytes/100 leukoc ytesOrdered By: Cele King on 11-13-2022 Lymphocytes/100 WBC (Bld) 31.5 % 19-41 [facility] Blood monocytes/100 leukocyt esOrdered By: Cele King on 11-13-2022 Monocytes/100 WBC (Bld) 9.7 % 0-10 [facility] Blood platelet mean volumeOr dered By: Cele King on 11-13-2022 Platelet mean volume (Bld) [Entitic vol] 11.8 fL 6.2-12.0 [facility] Determination of erythrocyte mean corpuscular volume (MCV)Ordered By: Cele King on 11-13-2022 MCV (RBC) [Entitic vol] 93.5 fL 81-99 [facility] Hematocrit Auto (Bld) [Volum e fraction]Ordered By: Cele King on 11-13-2022 Hematocrit (Bld) [Volume fraction] 38.9 % 37-47 [facility] - Chemistry and C hemistry - challengeOrdered By: Cele King on 11-13-2022 ALP [Catalytic activity/Vol] 74 U/L 45-117 [facility] ALT [Catalytic activity/Vol] 29 U/L 13-56 [facility] CO2 [Moles/Vol] 27.0 mmol/L 21.0-32.0 [facility] Globulin (S) [Mass/Vol] 3.1 g/dL 2.2-4.2 [facility] Urea nitrogen/Creatinine [Mass ratio] 25.3 mg/mg 10-20 [facility] - Hematology and Cell countsOrdered By: Cele King on 11-13-2022 Erythrocyte distribution width (RBC) [Entitic vol] 41.0 fL 35.1-43.9 [facility] Erythrocyte distribution width (RBC) [Ratio] 11.9 % 11.6-14.6 [facility] Immature granulocytes/100 WBC (Bld) 0.200 % 0.0-0.9 [facility] Comment on above: IG% - Immature Granu locytes (promyelocytes, myelocytes and metamyelocytes) > 1% indicates that a LEFT SHIFT is Present. MCH (RBC) [Entitic mass] 32.7 pg 27.0-32.0 [facility] Nucleated RBC/100 WBC (Bld) [Ratio] 0 % 0-5 [facility] MCHC Auto (RBC) [Mass/Vol]Or dered By: Cele King on 11-13-2022 MCHC (RBC) [Mass/Vol] 35.0 g/dL 32-36 [facility] No Panel InformationOrdered By: Cele King on 11-13-2022 Estimated GFR (MDRD) Amer 111 mL/min >60 [facility] Comment on above: GFR Calc Estimated GFR (MDRD) Non-Af Amer 92 mL/min >60 [facility] Comment on above: Non- GFR Calc Platelets bldOrdered By: Ahmet King on 11-13-2022 Platelets (Bld) [#/Vol] 147 10*3/uL 150-450 [facility] Serum or plasma albumin williams urement (mass/volume)Ordered By: Cele King on 05-12-2023 Albumin [Mass/Vol] 3.7 g/dL 3.2-5.0 [facility] Serum or plasma albumin/glob ulin mass ratioOrdered By: Cele King on 11-13-2022 Albumin/Globulin [Mass ratio] 1.2 {ratio} 0.9-2.4 [facility] Serum or plasma calcium williams urement (mass/volume)Ordered By: Cele King on 11-13-2022 Calcium [Mass/Vol] 8.9 mg/dL 8.5-10.1 [facility] Serum or plasma creatinine m easurement (mass/volume)Ordered By: Cele King on 11-13-2022 Creatinine [Mass/Vol] 0.67 mg/dL 0.55-1.02 [facility] Comment on above: The validity of the calculated GFR & GFRAA in patients over 70 years has not been determined. Clinical correlation is essential. Serum or plasma urea nitroge n measurement (mass/volume)Ordered By: Cele King on 11-13-2022 Urea nitrogen [Mass/Vol] 17 mg/dL 7-18 [facility] Thin prep Papanicolaou smear with manual screeningOrdered By: Cele King on 11-13-2022 Thin prep Papanicolaou smear with manual screening 20 U/L 15-37 [facility] Thin prep Papanicolaou smear with manual screening 5 5-15 [facility] Absolute lymphocyte countOrd ered By: Dr. King on 08-14-2022 Lymphocytes Auto (Unsp spec) [#/Vol] 1.32 10*3/uL 0.83-4.51 [facility] Basophil percentageOrdered B y: Dr. King on 08-14-2022 Basophils/100 WBC (Bld) 0.5 % 0-1 [facility] Bilirubin [Mass/Vol] 0.70 mg/dL 0.20-1.00 [facility] Comment on above: For patients on eltr ombopag therapy, use of Dimension [place] TBIL is not recommended. Chloride [Moles/Vol] 108 mmol/L 98-107 [facility] Eosinophils/100 WBC (Bld) 2.3 % 0-5 [facility] Glucose [Mass/Vol] 88 mg/dL 74-106 [facility] Neutrophils (Bld) [#/Vol] 2.0 10*3/uL 2.0-7.7 [facility] Neutrophils/100 WBC (Bld) 51.6 % 47-70 [facility] Potassium [Moles/Vol] 3.6 mmol/L 3.5-5.1 [facility] Protein [Mass/Vol] 6.9 g/dL 6.4-8.2 [facility] Sodium [Moles/Vol] 141 mmol/L 136-145 [facility] WBC (Bld) [#/Vol] 3.9 10*3/uL 4.4-11.0 [facility] Blood erythrocytes count (nu mber/volume)Ordered By: Dr. King on 08-14-2022 RBC (Bld) [#/Vol] 4.20 10*6/uL 4.2-5.4 [facility] Blood hemoglobin measurement (mass/volume)Ordered By: Dr. King on 08-14-2022 Hemoglobin (Bld) [Mass/Vol] 13.5 g/dL 12.0-15.0 [facility] Blood lymphocytes/100 leukoc ytesOrdered By: Dr. King on 08-14-2022 Lymphocytes/100 WBC (Bld) 33.6 % 19-41 [facility] Blood monocytes/100 leukocyt esOrdered By: Dr. King on 08-14-2022 Monocytes/100 WBC (Bld) 11.7 % 0-10 [facility] Blood platelet mean volumeOr dered By: Dr. King on 08-14-2022 Platelet mean volume (Bld) [Entitic vol] 10.8 fL 6.2-12.0 [facility] Determination of erythrocyte mean corpuscular volume (MCV)Ordered By: Dr. King on 08-14-2022 MCV (RBC) [Entitic vol] 94.5 fL 81-99 [facility] Hematocrit Auto (Bld) [Volum e fraction]Ordered By: Dr. King on 08-14-2022 Hematocrit (Bld) [Volume fraction] 39.7 % 37-47 [facility] Laboratory - Chemistry and C hemistry - challengeOrdered By: Dr. King on 08-14-2022 ALP [Catalytic activity/Vol] 75 U/L 45-117 [facility] ALT [Catalytic activity/Vol] 20 U/L 13-56 [facility] CO2 [Moles/Vol] 29.0 mmol/L 21.0-32.0 [facility] Globulin (S) [Mass/Vol] 3.2 g/dL 2.2-4.2 [facility] Urea nitrogen/Creatinine [Mass ratio] 20.7 mg/mg 10-20 [facility] Laboratory - Hematology and Cell countsOrdered By: Dr. King on 08-14-2022 Erythrocyte distribution width (RBC) [Entitic vol] 41.7 fL 35.1-43.9 [facility] Erythrocyte distribution width (RBC) [Ratio] 12.1 % 11.6-14.6 [facility] Immature granulocytes/100 WBC (Bld) 0.300 % 0.0-0.9 [facility] Comment on above: IG% - Immature Granu locytes (promyelocytes, myelocytes and metamyelocytes) > 1% indicates that a LEFT SHIFT is Present. MCH (RBC) [Entitic mass] 32.1 pg 27.0-32.0 [facility] Nucleated RBC/100 WBC (Bld) [Ratio] 0 % 0-5 [facility] MCHC Auto (RBC) [Mass/Vol]Or dered By: Dr. Knig on 08-14-2022 MCHC (RBC) [Mass/Vol] 34.0 g/dL 32-36 [facility] No Panel InformationOrdered By: Dr. King on 08-14-2022 Estimated GFR (MDRD) Amer 111 mL/min >60 [facility] Comment on above: GFR Calc Estimated GFR (MDRD) Non-Af Amer 92 mL/min >60 [facility] Comment on above: Non- GFR Calc Platelets bldOrdered By: Dr. King on 08-14-2022 Platelets (Bld) [#/Vol] 171 10*3/uL 150-450 [facility] Serum or plasma albumin williams urement (mass/volume)Ordered By: Dr. King on 08-14-2022 Albumin [Mass/Vol] 3.7 g/dL 3.2-5.0 [facility] Serum or plasma albumin/glob ulin mass ratioOrdered By: Dr. King on 08-14-2022 Albumin/Globulin [Mass ratio] 1.2 {ratio} 0.9-2.4 [facility] Serum or plasma calcium iwlliams urement (mass/volume)Ordered By: Dr. King on 08-14-2022 Calcium [Mass/Vol] 9.1 mg/dL 8.5-10.1 [facility] Serum or plasma creatinine m easurement (mass/volume)Ordered By: Dr. King on 08-14-2022 Creatinine [Mass/Vol] 0.68 mg/dL 0.55-1.02 [facility] Comment on above: The validity of the calculated GFR & GFRAA in patients over 70 years has not been determined. Clinical correlation is essential. Serum or plasma urea nitroge n measurement (mass/volume)Ordered By: Dr. King on 08-14-2022 Urea nitrogen [Mass/Vol] 14 mg/dL 7-18 [facility] Thin prep Papanicolaou smear with manual screeningOrdered By: Dr. King on 08-14-2022 Thin prep Papanicolaou smear with manual screening 22 U/L 15-37 [facility] Thin prep Papanicolaou smear with manual screening 4 5-15 [facility] Absolute lymphocyte countOrd ered By: Dr. Ruth on 05-13-2022 Lymphocytes Auto (Unsp spec) [#/Vol] 2.09 10*3/uL 0.83-4.51 [facility] Basophil percentageOrdered B y: Dr. Ruth on 05-13-2022 Basophils/100 WBC (Bld) 0.5 % 0-1 [facility] Bilirubin [Mass/Vol] 0.40 mg/dL 0.20-1.00 [facility] Comment on above: For patients on eltr ombopag therapy, use of Dim[place] TBIL is not recommended. Chloride [Moles/Vol] 108 mmol/L 98-107 [facility] Cholesterol [Mass/Vol] 187 mg/dL <200 [facility] Comment on above: <200 mg/dL Desirable 200-240 mg/dL Borderline >240 mg/dL High Risk Eosinophils/100 WBC (Bld) 0.8 % 0-5 [facility] Glucose [Mass/Vol] 99 mg/dL 74-106 [facility] Neutrophils (Bld) [#/Vol] 3.2 10*3/uL 2.0-7.7 [facility] Neutrophils/100 WBC (Bld) 53.3 % 47-70 [facility] Potassium [Moles/Vol] 3.1 mmol/L 3.5-5.1 [facility] Protein [Mass/Vol] 6.8 g/dL 6.4-8.2 [facility] Sodium [Moles/Vol] 141 mmol/L 136-145 [facility] Triglyceride [Mass/Vol] 190 mg/dL <199 [facility] Comment on above: The drugs N-Acetylcy steine and Metamizole may falsely depress this assay.Serum Triglycerides Reference Interval Normal <150 mg/dL Borderline high 150 - 199 mg/dL High 200 - 499 mg/dL Very High > or = 500 mg/dL WBC (Bld) [#/Vol] 6.1 10*3/uL 4.4-11.0 [facility] Blood erythrocytes count (nu mber/volume)Ordered By: Dr. Ruth on 05-13-2022 RBC (Bld) [#/Vol] 4.02 10*6/uL 4.2-5.4 [facility] Blood hemoglobin measurement (mass/volume)Ordered By: Dr. Ruth on 05-13-2022 Hemoglobin (Bld) [Mass/Vol] 13.5 g/dL 12.0-15.0 [facility] Blood lymphocytes/100 leukoc ytesOrdered By: Dr. Ruth on 05-13-2022 Lymphocytes/100 WBC (Bld) 34.4 % 19-41 [facility] Blood monocytes/100 leukocyt esOrdered By: Dr. Ruth on 05-13-2022 Monocytes/100 WBC (Bld) 10.7 % 0-10 [facility] Blood platelet mean volumeOr dered By: Dr. Ruth on 05-13-2022 Platelet mean volume (Bld) [Entitic vol] 11.1 fL 6.2-12.0 [facility] Determination of erythrocyte mean corpuscular volume (MCV)Ordered By: Dr. Ruth on 05-13-2022 MCV (RBC) [Entitic vol] 94.3 fL 81-99 [facility] Hematocrit Auto (Bld) [Volum e fraction]Ordered By: Dr. Ruth on 05-13-2022 Hematocrit (Bld) [Volume fraction] 37.9 % 37-47 [facility] Laboratory - Chemistry and C hemistry - challengeOrdered By: Dr. Ruth on 05-13-2022 ALP [Catalytic activity/Vol] 78 U/L 45-117 [facility] ALT [Catalytic activity/Vol] 20 U/L 13-56 [facility] CO2 [Moles/Vol] 27.0 mmol/L 21.0-32.0 [facility] Globulin (S) [Mass/Vol] 3.1 g/dL 2.2-4.2 [facility] Urea nitrogen/Creatinine [Mass ratio] 26.2 mg/mg 10-20 [facility] Laboratory - Hematology and Cell countsOrdered By: Dr. Ruth on 05-13-2022 Erythrocyte distribution width (RBC) [Entitic vol] 41.0 fL 35.1-43.9 [facility] Erythrocyte distribution width (RBC) [Ratio] 11.9 % 11.6-14.6 [facility] Immature granulocytes/100 WBC (Bld) 0.300 % 0.0-0.9 [facility] Comment on above: IG% - Immature Granu locytes (promyelocytes, myelocytes and metamyelocytes) > 1% indicates that a LEFT SHIFT is Present. MCH (RBC) [Entitic mass] 33.6 pg 27.0-32.0 [facility] Nucleated RBC/100 WBC (Bld) [Ratio] 0 % 0-5 [facility] MCHC Auto (RBC) [Mass/Vol]Or dered By: Dr. Ruth on 05-13-2022 MCHC (RBC) [Mass/Vol] 35.6 g/dL 32-36 [facility] No Panel InformationOrdered By: Dr. Ruth on 05-13-2022 Estimated GFR (MDRD) Amer 125 mL/min >60 [facility] Comment on above: GFR Calc Estimated GFR (MDRD) Non-Af Amer 103 mL/min >60 [facility] Comment on above: Non- GFR Calc Urine Microalbumin/Creatinine Ratio 10.5 mg/g CRE <30 [facility] Vitamin D 25-Hydroxy 63.3 ng/mL [facility] Comment on above: Vitamin D 25(OH) Sta tus Range Deficiency <20 ng/mL (50nmol/L) Insufficiency 20 - 30 ng/mL (50 - 75 nmol/L) Sufficiency 30 - 100 ng/mL (75 - 250 nmol/L) Toxicity >100 ng/mL (>250 nmol/L) Platelets bldOrdered By: Dr. Ruth on 05-13-2022 Platelets (Bld) [#/Vol] 180 10*3/uL 150-450 [facility] Serum or plasma albumin williams urement (mass/volume)Ordered By: Dr. Ruth on 05-13-2022 Albumin [Mass/Vol] 3.7 g/dL 3.2-5.0 [facility] Serum or plasma albumin/glob ulin mass ratioOrdered By: Dr. Ruth on 05-13-2022 Albumin/Globulin [Mass ratio] 1.2 {ratio} 0.9-2.4 [facility] Serum or plasma calcium williams urement (mass/volume)Ordered By: Dr. Ruth on 05-13-2022 Calcium [Mass/Vol] 9.1 mg/dL 8.5-10.1 [facility] Serum or plasma cholesterol in HDL measurement (mass/volume)Ordered By: Dr. Ruth on 05-13-2022 Cholesterol in HDL [Mass/Vol] 53 mg/dL >40 [facility] Comment on above: The drugs N-Acetylcy steine and Metamizole may falsely depress this assay. Reference Range HDL <40 mg/dL Low HDL Cholesterol HDL >or= 60 mg/dL High HDL Cholesterol Serum or plasma cholesterol in VLDL measurement (mass/volume)Ordered By: Dr. Ruth on 05-13-2022 Cholesterol in VLDL [Mass/Vol] 38 mg/dL 5-40 [facility] Serum or plasma creatinine m easurement (mass/volume)Ordered By: Dr. Ruth on 05-13-2022 Creatinine [Mass/Vol] 0.61 mg/dL 0.55-1.02 [facility] Comment on above: The validity of the calculated GFR & GFRAA in patients over 70 years has not been determined. Clinical correlation is essential. Serum or plasma low density lipoprotein (LDL) cholesterol measurement (mass/volume)Ordered By: Dr. Ruth on 05-13-2022 Cholesterol in LDL [Mass/Vol] 96 mg/dL 0-130 [facility] Serum or plasma prolactin me asurement (mass/volume)Ordered By: Dr. Ruth on 05-13-2022 Prolactin [Mass/Vol] 10.8 ng/mL [facility] Comment on above: NORMAL REFERENCE RAN GES FEMALE NON- 2.2 - 30.3 ng/mL 8.1 - 347.6 ng/mL POST-MENOPAUSAL 0.7 - 31.5 ng/mL MALE 2.5 - 17.4 ng/mL Serum or plasma urea nitroge n measurement (mass/volume)Ordered By: Dr. Ruth on 05-13-2022 Urea nitrogen [Mass/Vol] 16 mg/dL 7-18 [facility] Thin prep Papanicolaou smear with manual screeningOrdered By: Dr. Ruth on 05-13-2022 Thin prep Papanicolaou smear with manual screening 21 U/L 15-37 [facility] Thin prep Papanicolaou smear with manual screening 6 5-15 [facility] Thin prep Papanicolaou smear with manual screening 8.3 mg/L NO RANGE EST. [facility] Urine creatinine measurement (mass/volume)Ordered By: Dr. Ruth on 05-13-2022 Creatinine (U) [Mass/Vol] 79.30 mg/dL NO RANGE EST. [facility] Absolute lymphocyte counton 02-11-2022 Lymphocytes Auto (Unsp spec) [#/Vol] 1.96 10*3/uL 0.83-4.51 [facility] Work Phone: Basophil percentageon 2021 Basophils/100 WBC (Bld) 0.4 % 0-1 [facility] Work Phone: Bilirubin [Mass/Vol] 0.40 mg/dL 0.20-1.00 [facility] Work Phone: Comment on above: For patients on eltr ombopag therapy, use of [place] TBIL is not recommended. Chloride [Moles/Vol] 108 mmol/L 98-107 [facility] Work Phone: Eosinophils/100 WBC (Bld) 0.9 % 0-5 [facility] Work Phone: Glucose [Mass/Vol] 90 mg/dL 74-106 [facility] Work Phone: Neutrophils (Bld) [#/Vol] 2.7 10*3/uL 2.0-7.7 [facility] Work Phone: Neutrophils/100 WBC (Bld) 51.4 % 47-70 [facility] Work Phone: Potassium [Moles/Vol] 3.5 mmol/L 3.5-5.1 [facility] Work Phone: Protein [Mass/Vol] 7.0 g/dL 6.4-8.2 [facility] Work Phone: Sodium [Moles/Vol] 143 mmol/L 136-145 [facility] Work Phone: WBC (Bld) [#/Vol] 5.3 10*3/uL 4.4-11.0 [facility] Work Phone: Blood erythrocytes count (nu mber/volume)on 02-11-2022 RBC (Bld) [#/Vol] 4.17 10*6/uL 4.2-5.4 [facility] Work Phone: Blood hemoglobin measurement (mass/volume)on 02-11-2022 Hemoglobin (Bld) [Mass/Vol] 13.6 g/dL 12.0-15.0 [facility] Work Phone: Blood lymphocytes/100 leukoc yteson 02-11-2022 Lymphocytes/100 WBC (Bld) 37.2 % 19-41 [facility] Work Phone: Blood monocytes/100 leukocyt eson 02-11-2022 Monocytes/100 WBC (Bld) 9.9 % 0-10 [facility] Work Phone: Blood platelet mean volumeon 02-11-2022 Platelet mean volume (Bld) [Entitic vol] 10.7 fL 6.2-12.0 [facility] Work Phone: [phone] Determination of erythrocyte mean corpuscular volume (MCV)on 02-11-2022 MCV (RBC) [Entitic vol] 95.0 fL 81-99 [facility] Work Phone: [phone] Hematocrit Auto (Bld) [Volum e fraction]on 02-11-2022 Hematocrit (Bld) [Volume fraction] 39.6 % 37-47 [facility] Work Phone: [phone] Laboratory - Chemistry and C hemistry - challengeon 02-11-2022 ALP [Catalytic activity/Vol] 78 U/L 45-117 [facility] Work Phone: [phone] ALT [Catalytic activity/Vol] 23 U/L 13-56 [facility] Work Phone: [phone] CO2 [Moles/Vol] 32.0 mmol/L 21.0-32.0 [facility] Work Phone: Globulin (S) [Mass/Vol] 3.3 g/dL 2.2-4.2 [facility] Work Phone: [phone] Urea nitrogen/Creatinine [Mass ratio] 14.0 mg/mg 10-20 [facility] Work Phone: [phone] Laboratory - Hematology and Cell countson 02-11-2022 Erythrocyte distribution width (RBC) [Entitic vol] 40.8 fL 35.1-43.9 [facility] Work Phone: [phone] Erythrocyte distribution width (RBC) [Ratio] 11.9 % 11.6-14.6 [facility] Work Phone: [phone] Immature granulocytes/100 WBC (Bld) 0.200 % 0.0-0.9 [facility] Work Phone: [phone] Comment on above: IG% - Immature Granu locytes (promyelocytes, myelocytes and metamyelocytes) > 1% indicates that a LEFT SHIFT is Present. MCH (RBC) [Entitic mass] 32.6 pg 27.0-32.0 [facility] Work Phone: Nucleated RBC/100 WBC (Bld) [Ratio] 0 % 0-5 [facility] Work Phone: [phone] MCHC Auto (RBC) [Mass/Vol]on 02-11-2022 MCHC (RBC) [Mass/Vol] 34.3 g/dL 32-36 [facility] Work Phone: [phone] Panel Informationon 02-11 Estimated GFR (MDRD) Amer 93 mL/min >60 [facility] Work Phone: Comment on above: GFR Calc Estimated GFR (MDRD) Non-Af Amer 77 mL/min >60 [facility] Work Phone: Comment on above: Non- GFR Calc Platelets bldon 02-11-2022 Platelets (Bld) [#/Vol] 191 10*3/uL 150-450 [facility] Work Phone: [phone] Serum or plasma albumin williams urement (mass/volume)on 02-11-2022 Albumin [Mass/Vol] 3.7 g/dL 3.2-5.0 [facility] Work Phone: [phone] Serum or plasma albumin/glob ulin mass ratioon 02-11-2022 Albumin/Globulin [Mass ratio] 1.1 {ratio} 0.9-2.4 [facility] Work Phone: [phone] Serum or plasma calcium williams urement (mass/volume)on 02-11-2022 Calcium [Mass/Vol] 9.4 mg/dL 8.5-10.1 [facility] Work Phone: [phone] Serum or plasma creatinine m easurement (mass/volume)on 02-11-2022 Creatinine [Mass/Vol] 0.79 mg/dL 0.55-1.02 [facility] Work Phone: [phone] Comment on above: The validity of the calculated GFR & GFRAA in patients over 70 years has not been determined. Clinical correlation is essential. Serum or plasma urea nitroge n measurement (mass/volume)on 02-11-2022 Urea nitrogen [Mass/Vol] 11 mg/dL 7-18 [facility] Work Phone: Thin prep Papanicolaou smear with manual screeningon 02-11-2022 Thin prep Papanicolaou smear with manual screening 24 U/L 15-37 [facility] Work Phone: Thin prep Papanicolaou smear with manual screening 3 5-15 [facility] Work Phone: Absolute lymphocyte counton 11-14-2021 Lymphocytes Auto (Unsp spec) [#/Vol] 1.65 10*3/uL 0.83-4.51 [facility] Work Phone: Basophil percentageon 2021 Basophils/100 WBC (Bld) 0.7 % 0-1 [facility] Work Phone: Bilirubin [Mass/Vol] 0.70 mg/dL 0.20-1.00 [facility] Work Phone: Comment on above: For patients on eltr ombopag therapy, use of Dim[place] TBIL is not recommended. Chloride [Moles/Vol] 107 mmol/L 98-107 [facility] Work Phone: Eosinophils/100 WBC (Bld) 0.9 % 0-5 [facility] Work Phone: Glucose [Mass/Vol] 92 mg/dL 74-106 [facility] Work Phone: Neutrophils (Bld) [#/Vol] 2.4 10*3/uL 2.0-7.7 [facility] Work Phone: Neutrophils/100 WBC (Bld) 52.0 % 47-70 [facility] Work Phone: Potassium [Moles/Vol] 3.8 mmol/L 3.5-5.1 [facility] Work Phone: Protein [Mass/Vol] 6.7 g/dL 6.4-8.2 [facility] Work Phone: Sodium [Moles/Vol] 140 mmol/L 136-145 [facility] Work Phone: [phone] WBC (Bld) [#/Vol] 4.6 10*3/uL 4.4-11.0 [facility] Work Phone: Blood erythrocytes count (nu mber/volume)on 11-14-2021 RBC (Bld) [#/Vol] 4.17 10*6/uL 4.2-5.4 [facility] Work Phone: Blood hemoglobin measurement (mass/volume)on 11-14-2021 Hemoglobin (Bld) [Mass/Vol] 13.3 g/dL 12.0-15.0 [facility] Work Phone: [phone] Blood lymphocytes/100 leukoc yteson 11-14-2021 Lymphocytes/100 WBC (Bld) 35.8 % 19-41 [facility] Work Phone: [phone] Blood monocytes/100 leukocyt eson 11-14-2021 Monocytes/100 WBC (Bld) 10.4 % 0-10 [facility] Work Phone: [phone] Blood platelet mean volumeon 11-14-2021 Platelet mean volume (Bld) [Entitic vol] 10.8 fL 6.2-12.0 [facility] Work Phone: [phone] Determination of erythrocyte mean corpuscular volume (MCV)on 11-14-2021 MCV (RBC) [Entitic vol] 94.0 fL 81-99 [facility] Work Phone: [phone] Hematocrit Auto (Bld) [Volum e fraction]on 11-14-2021 Hematocrit (Bld) [Volume fraction] 39.2 % 37-47 [facility] Work Phone: [phone] Laboratory - Chemistry and C hemistry - challengeon 11-14-2021 ALP [Catalytic activity/Vol] 69 U/L 45-117 [facility] Work Phone: [phone] ALT [Catalytic activity/Vol] 23 U/L 13-56 [facility] Work Phone: [phone] CO2 [Moles/Vol] 30.0 mmol/L 21.0-32.0 [facility] Work Phone: [phone] Globulin (S) [Mass/Vol] 3.1 g/dL 2.2-4.2 [facility] Work Phone: [phone] Urea nitrogen/Creatinine [Mass ratio] 25.5 mg/mg 10-20 [facility] Work Phone: [phone] Laboratory - Hematology and Cell countson 11-14-2021 Erythrocyte distribution width (RBC) [Entitic vol] 40.9 fL 35.1-43.9 [facility] Work Phone: [phone] Erythrocyte distribution width (RBC) [Ratio] 11.9 % 11.6-14.6 [facility] Work Phone: [phone] Immature granulocytes/100 WBC (Bld) 0.200 % 0.0-0.9 [facility] Work Phone: [phone] Comment on above: IG% - Immature Granu locytes (promyelocytes, myelocytes and metamyelocytes) > 1% indicates that a LEFT SHIFT is Present. MCH (RBC) [Entitic mass] 31.9 pg 27.0-32.0 [facility] Work Phone: [phone] Nucleated RBC/100 WBC (Bld) [Ratio] 0 % 0-5 [facility] Work Phone: [phone] MCHC Auto (RBC) [Mass/Vol]on 11-14-2021 MCHC (RBC) [Mass/Vol] 33.9 g/dL 32-36 [facility] Work Phone: [phone] Panel Informationon 11-14 Estimated GFR (MDRD) Amer 121 mL/min >60 [facility] Work Phone: [phone] Comment on above: GFR Calc Estimated GFR (MDRD) Non-Af Amer 100 mL/min >60 [facility] Work Phone: [phone] Comment on above: Non- GFR Calc Platelets bldon 11-14-2021 Platelets (Bld) [#/Vol] 155 10*3/uL 150-450 [facility] Work Phone: Serum or plasma albumin williams urement (mass/volume)on 11-14-2021 Albumin [Mass/Vol] 3.6 g/dL 3.2-5.0 [facility] Work Phone: Serum or plasma albumin/glob ulin mass ratioon 11-14-2021 Albumin/Globulin [Mass ratio] 1.2 {ratio} 0.9-2.4 [facility] Work Phone: Serum or plasma calcium williams urement (mass/volume)on 11-14-2021 Calcium [Mass/Vol] 8.9 mg/dL 8.5-10.1 [facility] Work Phone: Serum or plasma creatinine m easurement (mass/volume)on 11-14-2021 Creatinine [Mass/Vol] 0.63 mg/dL 0.55-1.02 [facility] Work Phone: Comment on above: The validity of the calculated GFR & GFRAA in patients over 70 years has not been determined. Clinical correlation is essential. Serum or plasma urea nitroge n measurement (mass/volume)on 11-14-2021 Urea nitrogen [Mass/Vol] 16 mg/dL 7-18 [facility] Work Phone: Thin prep Papanicolaou smear with manual screeningon 11-14-2021 Thin prep Papanicolaou smear with manual screening 21 U/L 15-37 [facility] Work Phone: Thin prep Papanicolaou smear with manual screening 3 5-15 [facility] Work Phone: Encounters Encounter Date Encounter Type Care Provider Facility Start: 03-02-2025 End: 03-02-[address] Fadumo Ruth MD Work Phone: [facility] [place] Start: 03-02-2025 End: 03-02-[address] Cele King MD -[facility] [place] Work Phone: Start: 03-02-2025 End: 03-02-2025 ambulatory José Miguel Contreras Facility:[facility] Start: 11-30-2024 End: 11-30-[address] Fadumo Ruth MD Work Phone: [facility] Work Phone: Start: 11-30-2024 End: 11-30-[address] Cele King MD -[facility] [place] Work Phone: Start: 11-30-2024 End: 11-30-2024 ambulatory Fadumo Ruth Facility:[facility] Start: 09-01-2024 End: 09-01-[address] Fadumo Ruth MD Work Phone: [facility] Work Phone: Start: 09-01-2024 End: 09-01-[address] Cele King MD -[facility], [place] Work Phone: Start: 09-01-2024 End: 09-01-2024 ambulatory Cele King Facility:[facility] Start: 06-26-2024 End: 06-26-[address] Fadumo Ruth MD -[facility] Work Phone: Start: 06-26-2024 End: 06-26-2024 ambulatory Fadumo Ruth Facility:[facility] Start: 05-27-2024 End: 05-27-[address] Fadumo Ruth MD -Laboratory Work Phone: Start: 05-27-2024 End: 05-27-2024 ambulatory Fadumo Ruth Facility:[facility] Start: 08-26-2023 End: 08-26-2023 ambulatory [facility] Work Phone: Start: 08-26-2023 End: 08-26-2023 Patient encounter procedure [facility] [place] Work Phone: Start: 06-24-2023 End: 06-24-2023 ambulatory [facility] Work Phone: Start: 06-24-2023 End: 06-24-2023 Patient encounter procedure [facility] Work Phone: Start: 05-24-2023 End: 05-24-2023 ambulatory [facility] Work Phone: Start: 05-24-2023 End: 05-24-2023 Patient encounter procedure [facility] Work Phone: Start: 05-13-2023 End: 05-13-2023 ambulatory [facility] Work Phone: Start: 05-13-2023 End: 05-13-2023 Patient encounter procedure [facility] Start: 02-05-2023 End: 02-05-2023 ambulatory [facility] Work Phone: Start: 02-05-2023 End: 02-05-2023 Patient encounter procedure [facility] Work Phone: Start: 11-13-2022 End: 11-13-2022 Patient encounter procedure [facility] Work Phone: Start: 08-14-2022 End: 08-14-2022 ambulatory [facility] Work Phone: Start: 08-14-2022 End: 08-14-2022 Patient encounter procedure [facility] Start: 06-22-2022 End: 06-22-2022 ambulatory [facility] Work Phone: Start: 06-22-2022 End: 06-22-2022 Patient encounter procedure [facility] Start: 05-13-2022 End: 05-13-2022 ambulatory [facility] Work Phone: Start: 05-13-2022 End: 05-13-2022 Patient encounter procedure [facility] Start: 03-06-2022 End: 03-06-2022 ambulatory [facility] Work Phone: Start: 03-06-2022 End: 03-06-2022 Patient encounter procedure [facility], [place] Start: 02-11-2022 End: 02-11-2022 Patient encounter procedure [facility] Start: 11-14-2021 End: 11-14-2021 [facility] Date Procedure Procedure Detail Performing Clinician Start: 06-26-2024 Screening mammography Summer Ruth MD Work Phone: Start: 06-24-2023 Screening mammography Start: 06-22-2022 Screening mammography Start: 03-06-2022 X-ray of lumbosacral spine Immunizations Immunization Date Immunization Notes Care Provider Saqib shin 04-18-2018 Influenza virus vaccine [facility] Payers Date Payer Category Payer Medicare [id number] 537 [id number] 2024 Self-pay [id number] 2024 Unknown [id number] Unknown [id number] Unknown [id number] Unknown [id number] [id number] [id number] Unknown [id number] [id number] [id number] Unknown [id number] [id number] [id number] Social History Date Type Detail Facility Start: 07-23-2019 End: 07-23-2019 Tobacco smoking status NHIS Unknown if ever smoked [facility] Start: 07-22-2019 None [facility] Start: 07-22-2019 Spouse/ Signif icant Other [facility] Start: 07-23-2019 Non-smoker [facility] Start: 1955 Sex Assigned At Female [facility] Start: 07-23-2019 Tobacco smoking status NHIS Never smoked tobacco (finding) [facility] Start: 09-14-2024 Sex Female (finding) [facility] Evaluation note Note Date & Type Note Facility Evaluation note No assessment information availa ble [facility] Work Phone: Reason for referral (narrative) Note Date & Type Note Facility Reason for referral (narrative) No reason for referral information available [facility] Work Phone: Chief Complaint and Reason for Visit Chief Complaint PAIN- COPY PCP Chief Complaint PAIN- COPY PCP BACK PAIN Chief Complaint BACK PAIN Chief Complaint SCREENING Chief Complaint SCREENING PAIN- COPY PCP Chief Complaint PAIN- COPY PCP PAIN- COPY PCP Chief Complaint Admit Date 2 DRS/ 2 ORDERS May 27, 2024 9:03am SCREENING June 26, 2024 3:50pm PAIN- COPY PCP September 01, 2024 10:08am Chief Complaint Admit Date PAIN- COPY PCP September 01, 2024 10:08am Chief Complaint Admit Date CBCD, CMP, March 02, 2025 3: 14pm Family History No Family History Records Found Relationship Condition Age at Onset Recorded Date/T marcelo Unknown Family History?- Unknown January 11, 2015 11:13am Family History?Cance r, Heart Disease, - Unknown January 02, 2019 8:52pm Family History?Hypertension, Stroke Unkno wn January 02, 2019 8:52pm Relationship Condition Age at Onset Recorded Date/T marcelo Unknown Family History?- Unknown January 11, 2015 10:13am Family History?Cance r, Heart Disease, - Unknown January 02, 2019 7:52pm Family History?Hypertension, Stroke Unkno wn January 02, 2019 7:52pm Advance Directives No Advanced Directives Records Found Advance Directive Response Recorded Date/ Time Advance Directives Yes January 11 11:59am Living Will Yes July 22 9:26pm Power of Ink Printer Yes July 22, 2019 9:26pm Advance Directive Response Recorded Date/ Time Advance Directives Yes January 11 10:59am Living Will Yes July 22 8:26pm Power of Ink Printer Yes July 22, 2019 8:26pm Advance Directive Response Recorded Date/ Time Advance Directives Yes January 11 11:59am Summary Purpose Additional Source Comments Goals (unrecognized section and content) Goals may be documented in a n alternate sectionGoals may be documented in an alternate sectionGoals may be documented in an alternate sectionGoals may be documented in an alternate sectionGoals may be documented in an alternate sectionGoals may be documented in an alternate sectionGoals may be documented in an alternate sectionGoals may be documented in an alternate sectionGoals may be documented in an alternate sectionGoals may be documented in an alternate sectionGoals may be documented in an alternate sectionGoals may be documented in an alternate sectionGoals may be documented in an alternate section Care Teams (unrecognized sec tion and content) Team Status: Active Member Role Status Dates Dr. Fadumo Ruth MD Family Provider Active Dr. Fadumo Ruth MD Primary Care Provider Active Team Status: Inactive Member Role Status Dates Dr. Fadumo Ruth MD Primary Care Prov ider, Attending Provider, Referring Provider Active Dr. Cele King MD Other Provider Active Team Status: Inactive Member Role Status Dates Dr. Fadumo Ruth MD Primary Care Prov ider, Attending Provider, Referring Provider Active Team Status: Inactive Member Role Status Dates Dr. Fadumo Ruth MD Primary Care Provider Active Dr. Cele King MD Attending Provider, Referring Provider Active Team Status: Inactive Member Role Status Dates Dr. Fadumo Ruth MD Primary Care Provider Active Start: May 27, 2024 End: May 27, 2024 Dr. Fdaumo Ruth MD Attending Provider Active Start: May 27, 2024 End: May 27, 2024 Dr. Fadumo Ruth MD Referring Provider Active Start: May 27, 2024 End: May 27, 2024 Dr. Cele King MD Other Provider Active St art: May 27, 2024 End: May 27, 2024 Team Status: Inactive Member Role Status Dates Dr. Fadumo Ruth MD Primary Care Provider Active Start: June 26, 2024 End: June 26, 2024 Dr. Fadumo Ruth MD Attending Provider Active Start: June 26, 2024 End: June 26, 2024 Dr. Fadumo uRth MD Referring Provider Active Start: June 26, 2024 End: June 26, 2024 Team Status: Inactive Member Role Status Dates Dr. Fadumo Ruth MD Primary Care Provider Active Start: September 01, 2024 End: September 01, 2024 Dr. Cele King MD Attending Provider Active Start: September 01, 2024 End: September 01, 2024 Dr. Cele King MD Referring Provider Active Start: September 01, 2024 End: September 01, 2024 Team Status: Inactive Member Role Status Dates Dr. Fadumo Ruth MD Primary Care Provider Active Start: November 30, 2024 End: November 30, 2024 Dr. Cele King MD Attending Provider Active Start: November 30, 2024 End: November 30, 2024 Dr. Cele King MD Referring Provider Active Start: November 30, 2024 End: November 30, 2024 Team Status: Active Member Role/Relationship Status Dates Dr. Fadumo Ruth MD Family Provider Active Dr. José Miguel Contreras MD Primary Care Provider Acti ve Team Status: Inactive Member Role/Relationship Status Dates Dr. Fadumo Ruth MD Primary Care Provider Active Start: November 30, 2024 End: November 30, 2024 Dr. Cele King MD Attending Provider Active Start: November 30, 2024 End: November 30, 2024 Dr. Cele King MD Referring Provider Active Start: November 30, 2024 End: November 30, 2024 Team Status: Inactive Member Role/Relationship Status Dates Dr. José Miguel Contreras MD Primary Care Provider Acti ve Start: March 02, 2025 End: March 02, 2025 Dr. Cele King MD Attending Provider Active Start: March 02, 2025 End: March 02, 2025 Dr. Cele King MD Referring Provider Active Start: March 02, 2025 End: March 02, 2025 INFORMATION SOURCE (unrecogn ized section and content) DATE CREATED AUTHOR 03/20/2025 [facility] FOR RECORDS PERTAINING TO PATIENTS WHO ARE OR HAVE BEEN ENROLLED IN A CHEMICAL DEPENDENCY/SUBSTANCEABUSE PROGRAM, SOME INFORMATION MAY BE OMITTED. This clinical summary was aggregated from multiple sources. Caution should be exercised in using it in the provision of clinical care. This summary normalizes information from multiple sources, and as a consequence, information in this document may materially change the coding, format and clinical context of patient data. In addition, data may be omitted in some cases. CLINICAL DECISIONS SHOULD BE BASED ON THE PRIMARY CLINICAL RECORDS. [facility] provides no warranty or guarantee of the accuracy or completeness of information in this document.
[2025-06-01 11:58] LABS: Hematocrit 38.9 % (37-47); Hemoglobin 13.8 g/dL (12.0-15.0); Immature Granulocytes Count 0.010 X10^3/uL (0.0-0.0); Mean Corp Hgb Conc 35.5 g/dL (32-36); Mean Corpuscular Volume 92.8 fL (81-99); Mean Platelet Vol. 10.7 fl (6.2-12.0); NRBC Flagged by Analyzer 0 % (0-5); Platelet Count 181 K/mm3 (150-450); RBC Distribution Width CV 11.9 % (11.6-14.6); RBC Distribution Width SD 41.1 fl (35.1-43.9); Red Blood Count 4.19 M/mm3 (4.2-5.4); White Blood Count 5.2 K/mm3 (4.4-11.0)
[2025-06-01 12:53] LABS: AST(SGOT) 24 U/L (<=31); Alanine Aminotransfer ALT/SGPT 15 U/L (<=34); Albumin, Serum 4.2 g/dL (3.4-4.8); Alkaline Phosphatase 80 U/L (35-104); Anion Gap 9 (5-15); BUN 15 mg/dL (4-19); BUN/Creat Ratio 19.5 RATIO (10-20); Calcium,Total 9.3 mg/dL (7.6-11.0); Carbon Dioxide 27.8 mmol/L (21.0-32.0); Chloride 103 mmol/L (98-108); Cholesterol 215 mg/dL (<=200); Globulin 2.6 g/dL (2.2-4.2); Glucose 91 mg/dL (70-99); Low Density Lipoprotein Calc. 127 mg/dL; Potassium 3.3 mmol/L (3.3-5.1); Triglycerides 181 mg/dL; Very Low Density Lipoprotein 36 mg/dL (5-40); Vitamin D,25 Hydroxy 29.9 ng/mL (30-100); cholesterol:hdl ratio screen 3.84
[2025-06-02 02:07] LABS: PROLACTIN 13.3 ng/mL (3.6-25.2)
== END | disposition home or self-care (01) ==
LOC: MTLAB 09:50
PROVIDERS: PCP Family Medicine; Referring Provider Internal Medicine Rheumatology; Visit Provider Internal Medicine Rheumatology
DX: M06.4 Inflammatory polyarthropathy (principal); Z79.899 Other long term (current) drug therapy
CPT/HCPCS: 36415; 80053; 80061; 82306; 84146; 84443; 85025

== ENCOUNTER → 2025-06-27 | Outpatient (CLI) | payer MEDICARE, OTHER, SELFPAY ==
--- NOTE | 2025-06-27 07:55 | BD_ITS ---
PROCEDURE: DEXA BONE DENSITY STUDY 06/27/2025 REASON FOR EXAM: F, age 70 y/o . Postmenopausal. TECHNIQUE: Procedure Code: BDDBD Modality: DX Procedure: DEXA BONE DENSITY STUDY COMPARISON: DEXA exam dated 06/11/2021 FINDINGS: BMD and T-SCORES Lumbar spine: 1.087 g/cm2, T-score 0.4 Levels: L1 through L4 Left femoral neck: 0.856 g/cm2, T-score 0.1 Left total hip: 1.025 g/cm2, T-score 0.7 Change from prior: There has been an increase in the bone mineral density of the left hip by 0.6% since the prior study dated 06/11/2021. Right femoral neck: 0.821 g/cm2, T-score -0.2 Right total hip: 0.913 g/cm2, T-score -0.2 Change from prior: There has been a significant decrease in the bone mineral density of the right hip by 7.2% since the prior study dated 06/11/2021. The World Health Organization has defined the following categories based on bone density: Normal bone density: T-score equal to or greater than -1.0 Osteopenia: T-score between -1.0 and -2.5 Osteoporosis: T-score equal to or less than -2.5 FRAX (or Comparable) Fracture Risk Assessment: 10 Year Probability of Fracture: Major Osteoporotic Fracture: 10% Hip Fracture: 0.9% (Note: FRAX is not to be reported in setting of normal range bone density, osteoporosis on DEXA, known history of osteoporosis, prior osteoporotic hip or vertebral fracture, or for any patient undergoing pharmacological treatment for bone loss.) The National Osteoporosis Foundation (NOF) recommends pharmacological treatment for patients with a FRAX 10-year risk of 3% or higher for a hip fracture, or 20% or higher for a major osteoporotic fracture, to prevent osteoporosis and reduce fracture risk. The patient does not meet the pharmacological treatment recommendations for prevention of osteoporosis. BD/Dexa Bone Density Study IMPRESSION: NORMAL T-SCORES. Recommend follow-up as clinically warranted. Reading Location: [id number]
== END | disposition home or self-care (01) ==
LOC: OPBD 07:52
PROVIDERS: PCP Family Medicine
DX: M81.0 Age-related osteoporosis without current pathological fracture (principal)
CPT/HCPCS: 77080